=== PATIENT | male | born 1930 | race Caucasian/White ===

== ENCOUNTER → 2017-04-18 | Day surgery (SDC) | payer BC ==
[2017-03-30 14:39] VITALS: Ht 180.3 cm; Wt 79.5 kg
[~2017-04-18] VITALS: Ht 180.3 cm; Wt 79.5 kg
[~2017-04-18] MED LIST: ATOR-22 PO; BRIMONIDINE TART 0.2% OP SOLN PER DROP CHARGE OPR ONE; BRIMONIDINE TART 0.2% OP SOLN PER DROP CHARGE OPR SCH; BRIMONIDINE TARTRATE 0.2% 5ML OP SCH; PILOCARPINE HCL 2% OP SOLN PER DROP CHARGE OPR SCH; PROPARACAINE 0.5% OP SOLN PER DROP CHARGE OPR SCH; PROPARACAINE HCL 0.5% OP SOLN 15 ML BTL OPR ONE; PrednisoLONE ACET 1% OP SUSP 5 ML BTL OP SCH; PrednisoLONE ACET 1% OP SUSP 5 ML BTL OPR ONE
[2017-04-18 12:30] VITALS: BP 154/76; PULSE 60; O2SAT 98
--- NOTE | 2017-04-18 12:32 | Discharge Instructions-[facility]urgCtr ---
Discharge Instructions Date of Service Apr 18, 2017. Visit Reason for Visit: Glaucoma Right Eye Discharge Discharge Diagnosis / Problem: glaucoma Discharge Goals Goal(s): Improve disease control Activity Recommendations Activity Limitations: per Instructions/Follow-up section Anesthesia . Post Anesthesia Instructions: If you have had General Anesthesia or IV Sedation: * Do not drive today. * Resume driving when surgeon permits. * Do not make important decisions or sign legal documents today. * Call surgeon for: 1. Temperature elevations greater than 101 degrees F. 2. Uncontrollable pain. 3. Excessive bleeding. 4. Persistent nausea and vomiting. 5. Medication intolerance (nausea, vomiting or rash). * For nausea and vomiting use only clear liquids such as: tea, soda, bouillon until nausea subsides, then gradually increase diet as tolerated. * If you have any concerns or questions, call your surgeon's office. If physician is unavailable and it is an emergency, call 911 or go to the nearest emergency room. . Instructions / Follow-Up Instructions / Follow-Up ACTIVITY RECOMMENDATIONS: * No limitations RETURN TO SCHOOL/WORK: * No limitations DIET: * No limitations MEDICATIONS: Resume previous medications unless instructed otherwise by your surgeon. * Please use Prednisolone acetate drops prescription given to you at your office appointment as follows: 1 drop in effected eye 4 times a day for 5 days. * Continue all glaucoma drops as usual with no interruption to either eye. SPECIAL CARE INSTRUCTIONS: Call your doctor at with any concerns or problems. FOLLOW UP VISIT: Follow-up with Dr Menendez in 1 hour. Diet Recommendations Home Diet: resume previous diet Pending Studies Studies pending at discharge: no Medical Emergencies . Who to Call and When: Medical Emergencies: If at any time you feel your situation is an emergency, please call 911 immediately. . Non-Emergent Contact Non-Emergency issues call your: [employer] . . "Provider Documentation" section prepared by Payam Menendez. .
--- NOTE | 2017-04-18 12:33 | [facility] Operative Report ---
Operative Report Date of Service Apr 18, 2017. Operative Report Diagnosis: Glaucoma right eye Procedure: SLT superior 180 degrees, 52 spots, 1.4-1.6 mJ Complication: none I attest to the content of the Intraoperative Record and any orders documented therein. Any exceptions are noted below.
== END | disposition home or self-care (01) ==
LOC: X.SURG 11:05
PROVIDERS: ATTEND Ophthalmology
DX: H40.9 Unspecified glaucoma (principal); Z79.82 Long term (current) use of aspirin

== ENCOUNTER 2019-05-28 07:53 | Inpatient (IN) ==
[2019-05-28] MEDS ORDERED: SODIUM CHLORIDE 0.9% 1000ML 1,000 ML IV SCH ×2 (08:45→19:15)
[2019-05-28 08:55] LABS: Basophils # (auto) 0.02 K/uL (0-0.2); Basophils % (auto) 0.2 %; Eosinophils # (auto) 0.13 K/uL (0-0.5); Eosinophils % (auto) 1.2 %; Hematocrit (blood only) 34.3 % (42-52); Hemoglobin 12.3 g/dL (14.0-18.0); Immature Granulocytes # (auto) 0.04 K/uL (0.00-0.02); Immature Granulocytes % (auto) 0.4 %; Lymphocytes # (auto) 2.64 K/uL (1.2-3.4); Lymphocytes % (auto) 24.9 %; Mean Corpuscular Hemoglobin 32.5 pg (25-34); Mean Corpuscular Hgb Conc 35.9 g/dL (32-36); Mean Corpuscular Volume 90.7 fL (80-100); Mean Platelet Volume 10.9 fL (7.4-10.4); Monocytes # (auto) 1.07 K/uL (0.11-0.59); Monocytes % (auto) 10.1 %; Neutrophils # (auto) 6.71 K/uL (1.4-6.5); Neutrophils % (auto) 63.2 %; Platelet Count 195 K/uL (130-400); RDW Coefficient of Variation 12.8 % (11.5-14.5); RDW Standard Deviation 42.7 fL (36.4-46.3); Red Blood Count 3.78 M/uL (4.7-6.1); White Blood Count 10.61 K/uL (4.8-10.8)
--- NOTE | 2019-05-28 09:01 | XRay Report ---
XR chest 1V portable CLINICAL HISTORY: weakness dyspnea COMPARISON STUDY: 05/17/2019 FINDINGS: The bones soft tissues and hemidiaphragms are normal. The cardiomediastinal silhouette is n ormal. The lungs are clear. The pulmonary vasculature is normal. Superior mediastinal increase in den sity about the positional/artifactual. IMPRESSION: Negative chest. The above report was generated using voice recognition software. It may contain grammatical, syntax or spelling errors. Electronically signed by: Yan Radford M.D. 05/28/2019 9:00 AM
[2019-05-28 09:04] LABS: INR 1.2 (0.9-1.1); Prothrombin Time 11.7 Seconds (9.0-12.0)
[2019-05-28 09:11] LABS: Albumin Level 2.8 gm/dl (3.4-5.0); BUN Creatinine Ratio 30.2 (10-20); Blood Urea Nitrogen 29 mg/dl (7-18); Calcium 8.8 mg/dl (8.5-10.1); Carbon Dioxide 26 mmol/L (21-32); Chloride 94 mmol/L (98-107); Creatinine Clr Calc Pharmacy 50.5 ml/min; Est GFR (African American) 82.5; Est GFR (Non-African American) 71.2; Glucose 93 mg/dl (70-99); Potassium 4.4 mmol/L (3.5-5.1); Sodium 125 mmol/L (136-145)
[2019-05-28 09:22] LABS: Alanine Aminotransferase 53 U/L (12-78); Albumin Globulin Ratio 0.7 (0.9-2); Alkaline Phosphatase 130 U/L (45-117); Aspartate Aminotransferase 39 U/L (15-37); Bilirubin,Total 0.8 mg/dl (0.2-1); Total Protein 6.8 gm/dl (6.4-8.2); Troponin I < 0.015 ng/ml (0-0.045)
--- NOTE | 2019-05-28 09:40 | CT Scan Report ---
CT head/brain wo con CLINICAL HISTORY: Confusion COMPARISON STUDY: 05/02/2019 TECHNIQUE: Axial CT of the brain is performed from the vertex to the skull base. IV contrast was not administered for this examination. A dose lowering technique was utilized adhering to the principles of ALARA. CT DOSE: 614.27 mGy.cm FINDINGS: No intra or extra-axial mass lesions are visualized. There is no CT evidence of acute cortical infarc tion. There is no evidence of midline shift. There is no acute hemorrhage. No calvarial fractures ar e visualized. There are patchy white matter hypodensities likely on a small vessel basis. There is no evidence of pathologic ventricular dilatation. There is no evidence of acute sinusitis There are carotid and vertebral artery calcifications IMPRESSION: No acute intracranial findings Electronically signed by: Audie Brock M.D. 05/28/2019 9:38 AM
[2019-05-28 09:58] LABS: Appearance Urine Cloudy (Clear); Bacteria Urine Automated Negative (Negative); Bilirubin Urine Negative (Negative); Blood Urine 1+ (Negative); Cast Urine Automated 0 /lpf (0-5); Color Urine Yellow; Glucose Urine UA Negative (Negative); Ketones Urine Negative (Negative); Leukocyte Esterase Urine Negative (Negative); Nitrite Urine Negative (Negative); Protein Urine Negative (Negative); Specific Gravity Urine 1.019 (1.000-1.030); Urobilinogen Urine Negative (Negative); WBC Urine Automated 0 /hpf (0-5)
--- NOTE | 2019-05-28 11:57 | History & Physical Report ---
Date of Service May 28, 2019 Assessment & Plan (1) Hyponatremia: Patient presented with sodium level of 125, his previous levels were 135 earlier this month, and 138 in April (last month) Etiology is unclear, possibly secondary to very poor oral intake, SIADH, or side effect of SSRI, or combination of these factors Patient was started on Zoloft about 2 weeks ago, will hold for now Received half liter of normal saline in the ED, sodium level on recheck several hours later was 127 Serum osmolality, urine osmolality and urine sodium were ordered Serum osm 271, consistent with hypotonicity, urine osm 620 consistent with impaired water excretion TSH was ordered as part of the work-up in the ED, and was normal Volume status difficult to assess on phys. exam, as patient has no edema, dry mucous membranes/dry lips, however hemodynamically stable and hypertensive on initial evaluation Urine sodium 64, consistent with SIADH or renal salt wasting We will continue to monitor sodium every 4 hours, will make sure not to correct sodium too fast Will encourage oral intake We will consider to obtain FEurea, cortisol level (to rule out adrenal insufficiency), nephrology consult, if sodium does not improve (2) Confusion: Resolved, patient is alert and oriented and able to answer questions without any difficulty Etiology of confusion, likely secondary to hyponatremia Work-up in the ED included head CT which was negative, chest x-ray which was also negative, EKG showed bradycardia and first-degree AV block We will continue to closely monitor (3) Weight loss: Most likely secondary to poor oral intake BMI 21, which is normal Albumin 2.8 Per patient's son, patient lost about 40 pounds in the past 5 months Patient endorses poor appetite, etiology unclear, possibly secondary to depres sugey Denies having any difficulty with eating/drinking, such as dysphasia or abdominal discomfort Will encourage oral intake, discussed with nursing staff Will order boost 4 times daily We will consult dietitian (4) Depression: Patient had a several recent stressors, such as move to [facility], and leaving of his longtime girlfriend to [place] He denies any SI/HI, does not have any thoughts of hurting himself He does have a very poor appetite, which can be secondary to above History of mirtazapine use, which was discontinued and switched to Zoloft about 2 weeks ago Given his hyponatremia, and possibility of SSRI being the culprit, we will discontinue Zoloft during this admission We will continue to monitor closely (5) Dyslipidemia: No current issues Continue home statin (6) Hypertension: Currently patient's blood pressure is well controlled Patient does not take any home medications for BP We will continue to monitor (7) Hip pain, right: Secondary to chronic right hip arthritis Takes home NSAIDs, will continue during his hospitalization Pain well controlled at this time, will add Tylenol as needed Already scheduled for an outpatient ortho evaluation (8) DVT prophylaxis: Lovenox subq Encourage ambulation (9) Discharge planning issues: Currently resides at [facility], will consult PT to see if he has other needs for discharge. Current PCP, Dr. Gonzaelz. After discharge patient may follow-up with his PCP or physician at [facility]. History of Present Illness Chief Complaint: confusion Primary Care Provider: Dominguez Gonzalez MD 88-year-old male with history of hypertension, bilateral sensorineural hearing loss, right hip arthritis who presents from [facility], with confusion, most likely secondary to hyponatremia. In the ED patient was found to have sodium level of 125, head CT was negative for any acute changes, EKG showed bradycardia in 50s, and first-degree AV block. Patient presents with his son Donta who also provides history. They both state that patient has not been eating or drinking for some time and has been losing weight. Pt denies having any confusion like this in the past, he also has not been admitted to hospital before. He says that he woke up in the morning and he was unsure what he was doing, however denied any dizziness, chest pain,headache,nausea, abdominal pain, weakness, numbness, tingling. The staff at [facility] became aware and decided to bring patient to the hospital for further evaluation and treatment. Per son Donta, patient has been feeling more sad/depressed lately, as he moved to the [facility] 2 weeks ago (on May 17). He misses living in his home and in addition his girlfriend also moved to [place]. The patient and his girlfriend were together for about past 10 years and patient's son and the girlfriend do not get along which worries the patient. Per Donta, patient became more worried and anxious about "all the things that need to be taken care of" while he is at [facility]. He saw his primary care physician, Dr. Gonzalez on May 10, and at that time Zoloft was prescribed. Donta also mentions that patient has been taking mirtazapine for a long time in the past and mirtazapine was stopped. Donta's other concern is the patient's right hip pain due to arthritis, weight loss which he states is about 40 to 50 pounds in the past 5 months, and very poor appetite. Patient denies having any difficulty with eating or drinking, denies any pain with swallowing or abdominal discomfort. He states that he "just does not have any appetite". He also says that he has been having troubles with constipation and has been using stool softeners in the past couple of months. Internal medicine hospitalist team was called for admission for hyponatremia evaluation and treatment. Patient received half a liter of normal saline in the ED. On admission, patient's mental status back at baseline, he is alert and oriented and able to answer all questions without difficulty. Allergies Allergy/AdvReac Type Severity Reaction Status Date / Time No Known Allergies Allergy Unverified 05/28/19 08:21 Home Medications Home Medications Medication Instructions Recorded Confirmed Type aspirin 81 mg PO QAM 05/02/19 05/28/19 History atorvastatin 20 mg PO HS 05/02/19 05/28/19 History calcium carbonate-vitamin D3 1 cap PO QAM 05/02/19 05/28/19 History [Calcium 600 + D(3)] celecoxib 200 mg PO DAILY 05/02/19 05/28/19 History diclofenac sodium 2 g TOPICAL DIRECTED 05/02/19 05/28/19 History glucos sul [id number] 1 cap PO QAM 05/02/19 05/28/19 History [Glucosamine Chondroitin] multivitamin 1 tab PO QAM 05/02/19 05/28/19 History sertraline 50 mg PO DAILY 05/17/19 05/28/19 History Past Med/Surg History Medical History Sensorineural hearing loss (SNHL) of both ears (Chronic) Hypertension (Chronic) Mild scoliosis (Chronic) Dyslipidemia (Chronic) Depression (Chronic) Arthritis of right hip (Chronic) Surgical History Status post left cataract extraction (Chronic) Family History Mother Cancer Liver (unknown primary) Father Cancer Spine (unknown primary) Heart disease Brother Cancer intestinal Brother Heart disease Brother Heart disease Other Family history non-contributory Social History Preferred Language: Slovak Communication Ability: Effective Bet Taker Required: No Beliefs That Will Affect Care: None marital status details: but lived w/ GF for past 10 yrs who recently moved to [place] Current Living Situation: Personal Care Facility Current Living Situation Comment: [facility] Other Information That Helps Us Care for You: No Feels Safe at Home: Yes Safety Concerns: Feels Safe At This Time Smoking Status: Former smoker Hx Alcohol Use: No Hx Substance Use: No Review of Systems Constitutional: + weakness, + anorexia and + weight loss (40 lbs); no fever Eyes: no eye pain and no photophobia Ear, Nose, Mouth, Throat: + hearing loss; no pain with swallowing and no neck lump Patient uses hearing aids Respiratory: no cough, no chest congestion, no dyspnea and no wheezing Cardiovascular: no chest pain, no chest pain at rest, no palpitations and no lightheadedness Gastrointestinal: + constipation; no abdominal pain, no nausea, no hematemesis, no pain with swallowing, no dysphagia and no fecal incontinence Genitourinary: + urinary hesitancy Musculoskeletal: + joint pain (R hip) and + limited range of motion (of R hip d/t pain); no deformity and no swelling Integumentary: + dry skin; no erythema, no pruritus and no yellowing of the skin Neurologic: + unsteadiness, + falls (hx of fall ) and + confusion (now resolved); no tingling, no numbness, no dizziness, no syncope and no abnormal speech Psychiatric: + anhedonia; no suicidal ideation, no hallucinations and no visual hallucinations Endocrine: no polydipsia, no polyuria and no cold intolerance Hematologic / Lymphatic: no easy bleeding, no lymphadenopathy and no night sweats + weight loss (in the setting of poor oral intake) Allergy / Immunological: no throat swelling, no urticaria, no wheezing, no dyspnea and no rash Physical Exam Constitutional: + thin; no acute distress elderly male, appears the stated age, in no acute distress Eyes: PERRL, conjunctivae normal, anicteric sclerae + anicteric sclerae and EOM intact bilaterally ENMT: external ear and nose normal, oropharynx normal Ears: + hearing impairment (uses hearing aids) Mouth: + lip abnormality (dry), + oral mucosal abnormality (dry) and + dentition abnormality (poor dentition) Neck: supple, no cervical lymphadenopathy Respiratory: normal respiratory effort, lungs clear to auscultation does not use accessory muscles and no cough Auscultation: no crackles, no rhonchi and no wheezes Cardiovascular: RRR, no murmur, no edema Heart Sounds: normal S1 and normal S2; no click and no gallop Palpation: no thrill Vessels: no JVD Extremities: no edema Chest (Breasts): Chest: normal inspection of chest Gastrointestinal (Abdomen): Inspection/Auscultation: abdomen normal to inspection and normal bowel sounds; abdomen not distended Percussion/Palpation: abdomen soft; abdomen nontender, no guarding and abdomen not rigid Musculoskeletal: Head/Neck/Chest: normocephalic, head atraumatic and neck supple Extremities: extremities normal to inspection and + limited ROM of extremities (R hip ROM limited); no cyanosis and no petechiae Skin: no rashes, warm and dry no rashes and no jaundice Neurologic: PERRL, EOMI, accommodation nl, no face palsy, no dysarthria moves all extremities Speech / Cognition: normal speech Motor/Sensory: no tremor no sensory loss noted Psychiatric: Orientation: alert and oriented x 3 Speech: normal rate/rhythm/volume of speech Affect: + depressed affect Lymphatic: no lymphedema, no cervical lymphadenopathy and no subclavicular lymphadenopathy Results & Data Vital Signs (Past 12 Hours) Vital Signs Temp Pulse Pulse Resp BP BP Pulse Ox 05/28/19 11:30 59 L 20 123/71 96 05/28/19 10:30 61 15 132/68 97 05/28/19 10:00 64 21 149/74 H 98 05/28/19 09:52 62 18 142/71 H 96 05/28/19 09:00 54 L 15 118/58 L 97 05/28/19 08:43 57 L 15 136/68 98 05/28/19 08:11 95 05/28/19 07:58 36.6 C 59 L 18 144/59 H 97 Laboratory Results 05/28/19 05/28/19 05/28/19 Range/Units 14:59 14:56 09:59 WBC (4.8-10.8) K/uL RBC (4.7-6.1) M/uL Hgb (14.0-18.0) g/dL Hct (42-52) % MCV (80-100) fL MCH (25-34) pg MCHC (32-36) g/dL RDW Std Deviation (36.4-46.3) fL RDW Coeff of Victor Hugo (11.5-14.5) % Plt Count (130-400) K/uL MPV (7.4-10.4) fL Immature Gran % (Auto) % Neut % (Auto) % Lymph % (Auto) % Ponce % (Auto) % Eos % (Auto) % Baso % (Auto) % Immature Gran # (Auto) (0.00-0.02) K/uL Neut # (Auto) (1.4-6.5) K/uL Lymph # (Auto) (1.2-3.4) K/uL Ponce # (Auto) (0.11-0.59) K/uL Eos # (Auto) (0-0.5) K/uL Baso # (Auto) (0-0.2) K/uL PT (9.0-12.0) Seconds INR (0.9-1.1) APTT Pending PTT Ratio Pending Sodium Pending (136-145) mmol/L Potassium (3.5-5.1) mmol/L Chloride (98-107) mmol/L Carbon Dioxide (21-32) mmol/L Anion Gap (3-11) BUN (7-18) mg/dl Creatinine (0.6-1.4) mg/dl Est Cr Clr Drug Dosing ml/min Est GFR ( Amer) Est GFR (Non-Af Amer) BUN/Creatinine Ratio (10-20) Glucose (70-99) mg/dl Osmolality 271 L (280-300) mOsm/kg Calcium (8.5-10.1) mg/dl Total Bilirubin (0.2-1) mg/dl AST (15-37) U/L ALT (12-78) U/L Alkaline Phosphatase (45-117) U/L Troponin I (0-0.045) ng/ml Total Protein (6.4-8.2) gm/dl Albumin (3.4-5.0) gm/dl Globulin (2.5-4.0) gm/dl Albumin/Globulin Ratio (0.9-2) TSH (0.300-4.500) uIu/ml Urine Color Urine Appearance (Clear) Urine pH (4.5-7.5) Ur Specific Fountain (1.000-1.030) Urine Protein (Negative) Urine Glucose (UA) (Negative) Urine Ketones (Negative) Urine Blood (Negative) Urine Nitrite (Negative) Urine Bilirubin (Negative) Urine Urobilinogen (Negative) Ur Leukocyte Esterase (Negative) Urine WBC (Auto) (0-5) /hpf Urine RBC (Auto) (0-4) /hpf U Hyaline Cast (Auto) (0-5) /lpf U Epithel Cells (Auto) (0-5) /lpf Urine Bacteria (Auto) (Negative) Urine Osmolality (500-800) mOsm/kg Ur Random Sodium mmol/L 05/28/19 05/28/19 05/28/19 Range/Units 09:45 09:45 09:45 WBC (4.8-10.8) K/uL RBC (4.7-6.1) M/uL Hgb (14.0-18.0) g/dL Hct (42-52) % MCV (80-100) fL MCH (25-34) pg MCHC (32-36) g/dL RDW Std Deviation (36.4-46.3) fL RDW Coeff of Victor Hugo (11.5-14.5) % Plt Count (130-400) K/uL MPV (7.4-10.4) fL Immature Gran % (Auto) % Neut % (Auto) % Lymph % (Auto) % Ponce % (Auto) % Eos % (Auto) % Baso % (Auto) % Immature Gran # (Auto) (0.00-0.02) K/uL Neut # (Auto) (1.4-6.5) K/uL Lymph # (Auto) (1.2-3.4) K/uL Ponce # (Auto) (0.11-0.59) K/uL Eos # (Auto) (0-0.5) K/uL Baso # (Auto) (0-0.2) K/uL PT (9.0-12.0) Seconds INR (0.9-1.1) APTT PTT Ratio Sodium (136-145) mmol/L Potassium (3.5-5.1) mmol/L Chloride (98-107) mmol/L Carbon Dioxide (21-32) mmol/L Anion Gap (3-11) BUN (7-18) mg/dl Creatinine (0.6-1.4) mg/dl Est Cr Clr Drug Dosing ml/min Est GFR ( Amer) Est GFR (Non-Af Amer) BUN/Creatinine Ratio (10-20) Glucose (70-99) mg/dl Osmolality (280-300) mOsm/kg Calcium (8.5-10.1) mg/dl Total Bilirubin (0.2-1) mg/dl AST (15-37) U/L ALT (12-78) U/L Alkaline Phosphatase (45-117) U/L Troponin I (0-0.045) ng/ml Total Protein (6.4-8.2) gm/dl Albumin (3.4-5.0) gm/dl Globulin (2.5-4.0) gm/dl Albumin/Globulin Ratio (0.9-2) TSH (0.300-4.500) uIu/ml Urine Color Yellow Urine Appearance Cloudy A (Clear) Urine pH 7.0 (4.5-7.5) Ur Specific Fountain 1.019 (1.000-1.030) Urine Protein Negative (Negative) Urine Glucose (UA) Negative (Negative) Urine Ketones Negative (Negative) Urine Blood 1+ H (Negative) Urine Nitrite Negative (Negative) Urine Bilirubin Negative (Negative) Urine Urobilinogen Negative (Negative) Ur Leukocyte Esterase Negative (Negative) Urine WBC (Auto) 0 (0-5) /hpf Urine RBC (Auto) 10-30 H (0-4) /hpf U Hyaline Cast (Auto) 0 (0-5) /lpf U Epithel Cells (Auto) 5-10 H (0-5) /lpf Urine Bacteria (Auto) Negative (Negative) Urine Osmolality 620 (500-800) mOsm/kg Ur Random Sodium 64 mmol/L 05/28/19 05/28/19 05/28/19 Range/Units 08:45 08:45 08:45 WBC 10.61 (4.8-10.8) K/uL RBC 3.78 L (4.7-6.1) M/uL Hgb 12.3 L (14.0-18.0) g/dL Hct 34.3 L (42-52) % MCV 90.7 (80-100) fL MCH 32.5 (25-34) pg MCHC 35.9 (32-36) g/dL RDW Std Deviation 42.7 (36.4-46.3) fL RDW Coeff of Victor Hugo 12.8 (11.5-14.5) % Plt Count 195 (130-400) K/uL MPV 10.9 H (7.4-10.4) fL Immature Gran % (Auto) 0.4 % Neut % (Auto) 63.2 % Lymph % (Auto) 24.9 % Ponce % (Auto) 10.1 % Eos % (Auto) 1.2 % Baso % (Auto) 0.2 % Immature Gran # (Auto) 0.04 H (0.00-0.02) K/uL Neut # (Auto) 6.71 H (1.4-6.5) K/uL Lymph # (Auto) 2.64 (1.2-3.4) K/uL Ponce # (Auto) 1.07 H (0.11-0.59) K/uL Eos # (Auto) 0.13 (0-0.5) K/uL Baso # (Auto) 0.02 (0-0.2) K/uL PT 11.7 (9.0-12.0) Seconds INR 1.2 H (0.9-1.1) APTT PTT Ratio Sodium 125 L (136-145) mmol/L Potassium 4.4 (3.5-5.1) mmol/L Chloride 94 L (98-107) mmol/L Carbon Dioxide 26 (21-32) mmol/L Anion Gap 6.0 (3-11) BUN 29 H (7-18) mg/dl Creatinine 0.95 (0.6-1.4) mg/dl Est Cr Clr Drug Dosing 50.5 ml/min Est GFR ( Amer) 82.5 Est GFR (Non-Af Amer) 71.2 BUN/Creatinine Ratio 30.2 H (10-20) Glucose 93 (70-99) mg/dl Osmolality (280-300) mOsm/kg Calcium 8.8 (8.5-10.1) mg/dl Total Bilirubin 0.8 (0.2-1) mg/dl AST 39 H (15-37) U/L ALT 53 (12-78) U/L Alkaline Phosphatase 130 H (45-117) U/L Troponin I < 0.015 (0-0.045) ng/ml Total Protein 6.8 (6.4-8.2) gm/dl Albumin 2.8 L (3.4-5.0) gm/dl Globulin 4.0 (2.5-4.0) gm/dl Albumin/Globulin Ratio 0.7 L (0.9-2) TSH 2.520 (0.300-4.500) uIu/ml Urine Color Urine Appearance (Clear) Urine pH (4.5-7.5) Ur Specific Fountain (1.000-1.030) Urine Protein (Negative) Urine Glucose (UA) (Negative) Urine Ketones (Negative) Urine Blood (Negative) Urine Nitrite (Negative) Urine Bilirubin (Negative) Urine Urobilinogen (Negative) Ur Leukocyte Esterase (Negative) Urine WBC (Auto) (0-5) /hpf Urine RBC (Auto) (0-4) /hpf U Hyaline Cast (Auto) (0-5) /lpf U Epithel Cells (Auto) (0-5) /lpf Urine Bacteria (Auto) (Negative) Urine Osmolality (500-800) mOsm/kg Ur Random Sodium mmol/L Diagnostic Findings HEAD CT IMPRESSION: No acute intracranial findings. Electronically signed by: Audie Brock M.D. 05/28/2019 9:38 AM CXR FINDINGS: The bones soft tissues and hemidiaphragms are normal. The cardiomediastinal silhouette is normal. The lungs are clear. The pulmonary vasculature is normal. Superior mediastinal increase in density about the positional/artifactual. IMPRESSION: Negative chest. Electronically signed by: Yan Radford M.D. 05/28/2019 9:00 AM ECG Indication: altered mental status and bradycardia Findings: + 1st degree AV block Code Status & VTE Plan Code Status DNR/DNI - code status discussed with the patient and his son Donta Pt filled out POLST earlier this month where it states CPR if no pulse and no breathing, Comfort only if pulse and/or breathing - clarified this with the pt and his son, Patient does NOT wish resuscitation Donta's (son) phone number, [phone], please contact w/ any significant updates. VTE Prophylaxis Plan VTE Prophylaxis will be ordered: Yes (1) Depression Depression Type: unspecified Qualified Code(s): F32.9 - Major depressive disorder, single episode, unspecified (2) Hypertension Hypertension type: unspecified Qualified Code(s): I10 - Essential (primary) hypertension
--- NOTE | 2019-05-28 13:52 | Emergency Department Note ---
Entered by Guillaume Gaona acting as a scribe for Esdras De Los Santos M.D. History of Present Illness General Chief complaint: Illness Time Seen by Provider: 05/28/19 08:21 Source: patient History of Present Illness Provider complaint: Altered mental status Onset (ago): hour(s) 2 Location: head Pain Consistency: + now resolved Maximum Pain Intensity: 4 Current Pain Intensity: 4 Relieved By: + none Exacerbated By: + none Associated symptoms: + other (Right hip pain) The patient is an 88 year old male who presents to the Emergency Room via EMS from [facility] with a chief complaint of constant altered mental status that started this morning about 2 hours ago. The patient states he woke up to urinate and found himself confused in regards to what to do next and where to go. The patient then called for nursing and they did not notice any weakness or focal deficits but he was still confused. The patient reports that en route with EMS his confusion greatly improved, but he is still slightly confused. The patient also mentioned that he has some right hip pain that he rates a 4/10. The patient adds that he has a follow up appointment with ortho soon for this pain. Home Medications Home Medications Medication Instructions Recorded Confirmed Type aspirin 81 mg PO QAM 05/02/19 05/28/19 History atorvastatin 20 mg PO HS 05/02/19 05/28/19 History calcium carbonate-vitamin D3 1 cap PO QAM 05/02/19 05/28/19 History [Calcium 600 + D(3)] celecoxib 200 mg PO DAILY 05/02/19 05/28/19 History diclofenac sodium 2 g TOPICAL DIRECTED 05/02/19 05/28/19 History glucos sul [id number] 1 cap PO QAM 05/02/19 05/28/19 History [Glucosamine Chondroitin] multivitamin 1 tab PO QAM 05/02/19 05/28/19 History sertraline 50 mg PO DAILY 05/17/19 05/28/19 History Allergies Allergy/AdvReac Type Severity Reaction Status Date / Time No Known Allergies Allergy Unverified 05/28/19 08:21 Past Med/Surg History Medical History Hypertension (Chronic) Mild scoliosis (Chronic) Dyslipidemia (Chronic) Depression (Chronic) Arthritis of right hip (Chronic) Family History Other Family history non-contributory Social History Preferred Language: Cameroonian Communication Ability: Effective Ship Unloader Required: No Beliefs That Will Affect Care: None Current Living Situation: Personal Care Facility Current Living Situation Comment: [facility] Other Information That Helps Us Care for You: No Feels Safe at Home: Yes Safety Concerns: Feels Safe At This Time Smoking Status: Former smoker Hx Alcohol Use: No Hx Substance Use: No Review of Systems See HPI for pertinent positives & negatives. and A total of 10 systems reviewed and were otherwise negative Physical Exam Vital Signs Vital Signs - 24 hr 05/28/19 07:58 05/28/19 08:11 05/28/19 08:43 Temperature 36.6 C Temperature Source Oral Sepsis Recent Fever Within 48 Hours No Sepsis New/Unexplained Change in Mental Status No Sepsis Action Taken by Nursing No Action Required Pulse Rate 59 L 57 L Pulse Rate [Left] Pulse Rate from SpO2 Sensor 57 L Respiratory Rate 18 15 Respiratory Effort / Characteristics Non-Labored Spontaneous Respiratory Depth Normal Blood Pressure 144/59 H 136/68 Blood Pressure [Left Arm] Blood Pressure Mean 87 90 Blood Pressure Mean [Left Arm] Blood Pressure Position [Left Arm] Pulse Oximetry 97 95 98 Oxygen Delivery Method Room Air Room Air Room Air 05/28/19 09:00 05/28/19 09:52 05/28/19 10:00 Temperature Temperature Source Sepsis Recent Fever Within 48 Hours Sepsis New/Unexplained Change in Mental Status Sepsis Action Taken by Nursing Pulse Rate 54 L 62 64 Pulse Rate [Left] Pulse Rate from SpO2 Sensor 54 L 63 Respiratory Rate 15 18 21 Respiratory Effort / Characteristics Respiratory Depth Blood Pressure 118/58 L 142/71 H 149/74 H Blood Pressure [Left Arm] Blood Pressure Mean 78 94 99 Blood Pressure Mean [Left Arm] Blood Pressure Position [Left Arm] Pulse Oximetry 97 96 98 Oxygen Delivery Method Room Air Room Air Room Air 05/28/19 10:30 05/28/19 11:30 05/28/19 13:00 Temperature Temperature Source Sepsis Recent Fever Within 48 Hours Sepsis New/Unexplained Change in Mental Status Sepsis Action Taken by Nursing Pulse Rate 61 Pulse Rate [Left] 59 L 53 L Pulse Rate from SpO2 Sensor 61 Respiratory Rate 15 20 18 Respiratory Effort / Characteristics Non-Labored Spontaneous Respiratory Depth Normal Blood Pressure 132/68 Blood Pressure [Left Arm] 123/71 107/56 L Blood Pressure Mean 89 Blood Pressure Mean [Left Arm] 88 73 Blood Pressure Position [Left Arm] Lying Lying Pulse Oximetry 97 96 96 Oxygen Delivery Method Room Air Room Air Room Air 05/28/19 13:36 Temperature Temperature Source Sepsis Recent Fever Within 48 Hours Sepsis New/Unexplained Change in Mental Status Sepsis Action Taken by Nursing Pulse Rate 53 L Pulse Rate [Left] Pulse Rate from SpO2 Sensor Respiratory Rate 16 Respiratory Effort / Characteristics Respiratory Depth Blood Pressure 112/53 L Blood Pressure [Left Arm] Blood Pressure Mean Blood Pressure Mean [Left Arm] Blood Pressure Position [Left Arm] Pulse Oximetry 98 Oxygen Delivery Method Room Air GENERAL: Awake, alert, frail-appearing, in no distress HENT: Normocephalic, atraumatic. EYES: Normal conjunctiva. Sclera non-icteric. PERRL. NECK: Supple. No nuchal rigidity. RESPIRATORY: Clear to auscultation. No wheezes. Normal respiratory effort. CARDIAC: Normal rate. Normal rhythm. Extremities warm and well perfused. GI: Soft, non-distended. No tenderness to palpation. RECTAL: Deferred. MUSCULOSKELETAL: Atraumatic. Chest examination reveals no tenderness. LOWER EXTREMITIES: Calves are equal size bilaterally and non-tender. No edema NEURO: Occasionally slow to answer. No sensory or motor deficits noted. No facial droop. No slurred speech. SKIN: Warm and dry. No rash or jaundice noted. Course 0805: Past medical records reviewed. The patient was evaluated in room B02 by the resident Dr. Gleason, and a complete history and physical examination were performed. 0949: I spoke to Dr. Margarito Lao about the patient's case. She is going to accept the patient for further evaluation. 0957: I reevaluated the patient and he is resting in bed. I updated him on the treatment plan and he agreed. Consultations Consultation #1: I spoke to Dr. Margarito Lao about the patient's case. She is going to accept the patient for further evaluation. Time: 09:49 Administered Medications Discontinued Medications Sodium Chloride (Nss 1000ml) 1,000 mls @ 999 mls/hr IV .Q1H1M EMILY Stop: 05/28/19 09:45 Last Infusion: 05/28/19 09:18 Dose: 0 mls/hr Documented by: [id number] Admin: 05/28/19 08:44 Dose: 999 mls/hr Documented by: [id number] Medical Decision Making Differential Diagnosis Differential diagnoses includes but is not limited to toxic, metabolic, infectious, traumatic, cardiac, neurologic, hematologic, psychiatric and inflammatory etiologies. Medical Records Attestation: I reviewed the patient's medical records. Home Medications Current Medication List: was personally reviewed by me Laboratory Data Attestation: I reviewed the patient's lab results. Result diagrams: 05/28/19 08:45 05/28/19 08:45 Lab Results 05/28/19 05/28/19 05/28/19 Range/Units 08:45 08:45 08:45 WBC 10.61 (4.8-10.8) K/uL RBC 3.78 L (4.7-6.1) M/uL Hgb 12.3 L (14.0-18.0) g/dL Hct 34.3 L (42-52) % MCV 90.7 (80-100) fL MCH 32.5 (25-34) pg MCHC 35.9 (32-36) g/dL RDW Std Deviation 42.7 (36.4-46.3) fL RDW Coeff of Victor Hugo 12.8 (11.5-14.5) % Plt Count 195 (130-400) K/uL MPV 10.9 H (7.4-10.4) fL Immature Gran % (Auto) 0.4 % Neut % (Auto) 63.2 % Lymph % (Auto) 24.9 % [place] % (Auto) 10.1 % Eos % (Auto) 1.2 % Baso % (Auto) 0.2 % Immature Gran # (Auto) 0.04 H (0.00-0.02) K/uL Neut # (Auto) 6.71 H (1.4-6.5) K/uL Lymph # (Auto) 2.64 (1.2-3.4) K/uL [place] # (Auto) 1.07 H (0.11-0.59) K/uL Eos # (Auto) 0.13 (0-0.5) K/uL Baso # (Auto) 0.02 (0-0.2) K/uL PT 11.7 (9.0-12.0) Seconds INR 1.2 H (0.9-1.1) Sodium 125 L (136-145) mmol/L Potassium 4.4 (3.5-5.1) mmol/L Chloride 94 L (98-107) mmol/L Carbon Dioxide 26 (21-32) mmol/L Anion Gap 6.0 (3-11) BUN 29 H (7-18) mg/dl Creatinine 0.95 (0.6-1.4) mg/dl Est Cr Clr Drug Dosing 50.5 ml/min Est GFR ( Amer) 82.5 Est GFR (Non-Af Amer) 71.2 BUN/Creatinine Ratio 30.2 H (10-20) Glucose 93 (70-99) mg/dl Osmolality (280-300) mOsm/kg Calcium 8.8 (8.5-10.1) mg/dl Total Bilirubin 0.8 (0.2-1) mg/dl AST 39 H (15-37) U/L ALT 53 (12-78) U/L Alkaline Phosphatase 130 H (45-117) U/L Troponin I < 0.015 (0-0.045) ng/ml Total Protein 6.8 (6.4-8.2) gm/dl Albumin 2.8 L (3.4-5.0) gm/dl Globulin 4.0 (2.5-4.0) gm/dl Albumin/Globulin Ratio 0.7 L (0.9-2) TSH 2.520 (0.300-4.500) uIu/ml Urine Color Urine Appearance (Clear) Urine pH (4.5-7.5) Ur Specific [place] (1.000-1.030) Urine Protein (Negative) Urine Glucose (UA) (Negative) Urine Ketones (Negative) Urine Blood (Negative) Urine Nitrite (Negative) Urine Bilirubin (Negative) Urine Urobilinogen (Negative) Ur Leukocyte Esterase (Negative) Urine WBC (Auto) (0-5) /hpf Urine RBC (Auto) (0-4) /hpf U Hyaline Cast (Auto) (0-5) /lpf U Epithel Cells (Auto) (0-5) /lpf Urine Bacteria (Auto) (Negative) Urine Osmolality (500-800) mOsm/kg Ur Random Sodium mmol/L 05/28/19 05/28/19 05/28/19 Range/Units 09:45 09:45 09:45 WBC (4.8-10.8) K/uL RBC (4.7-6.1) M/uL Hgb (14.0-18.0) g/dL Hct (42-52) % MCV (80-100) fL MCH (25-34) pg MCHC (32-36) g/dL RDW Std Deviation (36.4-46.3) fL RDW Coeff of Victor Hugo (11.5-14.5) % Plt Count (130-400) K/uL MPV (7.4-10.4) fL Immature Gran % (Auto) % Neut % (Auto) % Lymph % (Auto) % [place] % (Auto) % Eos % (Auto) % Baso % (Auto) % Immature Gran # (Auto) (0.00-0.02) K/uL Neut # (Auto) (1.4-6.5) K/uL Lymph # (Auto) (1.2-3.4) K/uL [place] # (Auto) (0.11-0.59) K/uL Eos # (Auto) (0-0.5) K/uL Baso # (Auto) (0-0.2) K/uL PT (9.0-12.0) Seconds INR (0.9-1.1) Sodium (136-145) mmol/L Potassium (3.5-5.1) mmol/L Chloride (98-107) mmol/L Carbon Dioxide (21-32) mmol/L Anion Gap (3-11) BUN (7-18) mg/dl Creatinine (0.6-1.4) mg/dl Est Cr Clr Drug Dosing ml/min Est GFR ( Amer) Est GFR (Non-Af Amer) BUN/Creatinine Ratio (10-20) Glucose (70-99) mg/dl Osmolality (280-300) mOsm/kg Calcium (8.5-10.1) mg/dl Total Bilirubin (0.2-1) mg/dl AST (15-37) U/L ALT (12-78) U/L Alkaline Phosphatase (45-117) U/L Troponin I (0-0.045) ng/ml Total Protein (6.4-8.2) gm/dl Albumin (3.4-5.0) gm/dl Globulin (2.5-4.0) gm/dl Albumin/Globulin Ratio (0.9-2) TSH (0.300-4.500) uIu/ml Urine Color Yellow Urine Appearance Cloudy A (Clear) Urine pH 7.0 (4.5-7.5) Ur Specific [place] 1.019 (1.000-1.030) Urine Protein Negative (Negative) Urine Glucose (UA) Negative (Negative) Urine Ketones Negative (Negative) Urine Blood 1+ H (Negative) Urine Nitrite Negative (Negative) Urine Bilirubin Negative (Negative) Urine Urobilinogen Negative (Negative) Ur Leukocyte Esterase Negative (Negative) Urine WBC (Auto) 0 (0-5) /hpf Urine RBC (Auto) 10-30 H (0-4) /hpf U Hyaline Cast (Auto) 0 (0-5) /lpf U Epithel Cells (Auto) 5-10 H (0-5) /lpf Urine Bacteria (Auto) Negative (Negative) Urine Osmolality 620 (500-800) mOsm/kg Ur Random Sodium 64 mmol/L 05/28/19 Range/Units 09:59 WBC (4.8-10.8) K/uL RBC (4.7-6.1) M/uL Hgb (14.0-18.0) g/dL Hct (42-52) % MCV (80-100) fL MCH (25-34) pg MCHC (32-36) g/dL RDW Std Deviation (36.4-46.3) fL RDW Coeff of Victor Hugo (11.5-14.5) % Plt Count (130-400) K/uL MPV (7.4-10.4) fL Immature Gran % (Auto) % Neut % (Auto) % Lymph % (Auto) % [place] % (Auto) % Eos % (Auto) % Baso % (Auto) % Immature Gran # (Auto) (0.00-0.02) K/uL Neut # (Auto) (1.4-6.5) K/uL Lymph # (Auto) (1.2-3.4) K/uL [place] # (Auto) (0.11-0.59) K/uL Eos # (Auto) (0-0.5) K/uL Baso # (Auto) (0-0.2) K/uL PT (9.0-12.0) Seconds INR (0.9-1.1) Sodium (136-145) mmol/L Potassium (3.5-5.1) mmol/L Chloride (98-107) mmol/L Carbon Dioxide (21-32) mmol/L Anion Gap (3-11) BUN (7-18) mg/dl Creatinine (0.6-1.4) mg/dl Est Cr Clr Drug Dosing ml/min Est GFR ( Amer) Est GFR (Non-Af Amer) BUN/Creatinine Ratio (10-20) Glucose (70-99) mg/dl Osmolality 271 L (280-300) mOsm/kg Calcium (8.5-10.1) mg/dl Total Bilirubin (0.2-1) mg/dl AST (15-37) U/L ALT (12-78) U/L Alkaline Phosphatase (45-117) U/L Troponin I (0-0.045) ng/ml Total Protein (6.4-8.2) gm/dl Albumin (3.4-5.0) gm/dl Globulin (2.5-4.0) gm/dl Albumin/Globulin Ratio (0.9-2) TSH (0.300-4.500) uIu/ml Urine Color Urine Appearance (Clear) Urine pH (4.5-7.5) Ur Specific [place] (1.000-1.030) Urine Protein (Negative) Urine Glucose (UA) (Negative) Urine Ketones (Negative) Urine Blood (Negative) Urine Nitrite (Negative) Urine Bilirubin (Negative) Urine Urobilinogen (Negative) Ur Leukocyte Esterase (Negative) Urine WBC (Auto) (0-5) /hpf Urine RBC (Auto) (0-4) /hpf U Hyaline Cast (Auto) (0-5) /lpf U Epithel Cells (Auto) (0-5) /lpf Urine Bacteria (Auto) (Negative) Urine Osmolality (500-800) mOsm/kg Ur Random Sodium mmol/L Imaging Data Radiologist's Impression: Radiology results as stated below per my review and the radiologist's interpretation: XR chest 1V portable CLINICAL HISTORY: weakness dyspnea COMPARISON STUDY: 05/17/2019 FINDINGS: The bones soft tissues and hemidiaphragms are normal. The cardiomediastinal silhouette is normal. The lungs are clear. The pulmonary vasculature is normal. Superior mediastinal increase in density about the positional/artifactual. IMPRESSION: Negative chest. The above report was generated using voice recognition software. It may contain grammatical, syntax or spelling errors. Electronically signed by: Yan Radford M.D. 05/28/2019 9:[address] head/brain wo asael CLINICAL HISTORY: Confusion COMPARISON STUDY: 05/02/2019 TECHNIQUE: Axial CT of the brain is performed from the vertex to the skull base. IV contrast was not administered for this examination. A dose lowering technique was utilized adhering to the principles of ALARA. CT DOSE: 614.27 mGy.cm FINDINGS: No intra or extra-axial mass lesions are visualized. There is no CT evidence of acute cortical infarction. There is no evidence of midline shift. There is no acute hemorrhage. No calvarial fractures are visualized. There are patchy white matter hypodensities likely on a small vessel basis. There is no evidence of pathologic ventricular dilatation. There is no evidence of acute sinusitis There are carotid and vertebral artery calcifications IMPRESSION: No acute intracranial findings Electronically signed by: Audie Brock M.D. 05/28/2019 9:38 AM ECG Data Attestation: I personally reviewed and interpreted this ECG as follows: Indication: altered mental status Rate (beats per minute): 56 Rhythm: sinus bradycardia Findings: + 1st degree AV block and + left axis deviation; no PVC, no ST depress ion and no ST elevation Blood Pressure Blood Pressure Findings: Elevated blood pressure Blood Pressure Disposition: further management by hospitalist LINDSEY Rodriguez Patient is an 88-year-old gentleman with a past medical history of hypertension seen here beginning of the month with right hip pain presents via ambulance today as he felt somewhat confused this morning at his facility. Evaluation at that time with CT imaging did not identify fracture however there was severe degenerative change. Patient today with right hip pain some confusion and dehydration. Patient states he has no desire to eat or drink and his urine is concentrated. Seen in conjunction with the resident. Patient upon arrival here denies significant complaints with chronic right hip pain. Patient seems alert and oriented here without focal deficit here. Somewhat slow to answer. Chest x- rays unremarkable. EKG without significant new findings. Laboratory studies are significant for a new hyponatremia of 125. Wonder if this is the underlying reason for why he staying a little bit confused. This does appear acute compared to 2 weeks ago. Given 500 mL's of normal saline prior to obtaining this labs and then fluids were stopped with returned hyponatremia. CT the head completed to exclude acute intracranial pathology which is negative. Patient require admission for further evaluation of his hyponatremia and treatment. [facility] hospitalist contacted. Impression & Plan Hyponatremia, Confusion Discharge Plan Visit Data Chief Complaint: Illness ED Provider: Esdras De Los Santos ED Midlevel Provider: Mu Gleason Discharge Problem: Hyponatremia, Confusion Patient Disposition: Being Evaluated by Hospitalist Discharge Instructions Interventions: ED Discharge Assessment Last Done: 05/28/19 13:36 Forms Stand Alone Forms: My [facility] Prescriptions Prescriptions: No Action atorvastatin 20 mg Tablet 20 mg PO HS RF: 0 celecoxib 200 mg Capsule 200 mg PO DAILY RF: 0 diclofenac sodium 1 % Gel 2 g TOPICAL DIRECTED RF: 0 multivitamin Tablet 1 tab PO QAM RF: 0 Calcium 600 + D(3) 600 mg calcium- 200 unit Capsule 1 cap PO QAM RF: 0 Glucosamine Chondroitin 550-30-1 mg Capsule 1 cap PO QAM RF: 0 aspirin 81 mg Tablet,Delayed Release (Dr/Ec) 81 mg PO QAM RF: 0 sertraline 50 mg tablet 50 mg PO DAILY RF: 0 Referrals Referrals: Dominguez Gonzalez MD [Primary Care Provider] - The scribe's documentation has been prepared under my direction and personally reviewed by me in its entirety. I confirm that the note above accurately ref lects all work, treatment, procedures, and medical decision making performed by me.
[2019-05-28] MEDS ORDERED: ALUMINUM/MAGNESIUM SUSP 30 ML UDC PO PRN (14:33)
[2019-05-28 15:17] LABS: Partial Thromboplastin Ratio 1.1; Partial Thromboplastin Time 30.2 Seconds (21.0-31.0)
[2019-05-28] MEDS: DICLOFENAC SOD 1% GEL 100 GM TUBE EXT SCH ×2 (15:47→19:56)
[2019-05-28] MEDS ORDERED: SODIUM CHLORIDE 0.9% 1000ML 500 ML IV ONE (16:15)
[2019-05-28] MEDS: ATORVASTATIN 20 MG TAB PO SCH (19:56)
[2019-05-28] MEDS: ENOXAPARIN INJ 40 MG/0.4 ML SYR SQ SCH (19:56)
[2019-05-28] MEDS ORDERED: POLYETHYLENE (MIRALAX) 17 GM PACK PO PRN (20:02)
[2019-05-29 06:48] LABS: BUN Creatinine Ratio 25.6 (10-20); Calcium 8.2 mg/dl (8.5-10.1); Creatinine Clr Calc Pharmacy 63.8 ml/min; Est GFR (African American) 94.4; Est GFR (Non-African American) 81.5; Potassium 4.3 mmol/L (3.5-5.1)
[2019-05-29] MEDS ORDERED: SODIUM CHLORIDE 0.9% 1000ML 1,000 ML IV ONE (07:17)
[2019-05-29] MEDS: DICLOFENAC SOD 1% GEL 100 GM TUBE EXT SCH ×4 (09:19→20:37)
[2019-05-29] MEDS: CALCIUM 600MG + VIT D 400 IU TAB PO SCH (09:20)
[2019-05-29] MEDS: ASPIRIN 81 MG ECTAB PO SCH (09:20)
[2019-05-29] MEDS: CeleBREX 200 MG CAP PO SCH (09:20)
[2019-05-29 09:26] LABS: BUN Creatinine Ratio 23.1 (10-20); Calcium 8.5 mg/dl (8.5-10.1); Creatinine Clr Calc Pharmacy 55.1 ml/min; Est GFR (African American) 88.9; Est GFR (Non-African American) 76.7
[2019-05-29] MEDS: ACETAMINOPHEN 325 MG TAB PO PRN (12:24)
--- NOTE | 2019-05-29 12:47 | Hospitalist Progress Note ---
Date of Service May 29, 2019 Assessment & Plan (1) Hyponatremia: Patient presented with sodium level of 125, his previous levels were 135 earlier this month, and 138 in April (last month) Etiology is unclear, possibly secondary to very poor oral intake, SIADH, or side effect of SSRI, or combination of these factors Patient was started on Zoloft about 2 weeks ago, will hold for now Received half liter of normal saline in the ED, sodium level on recheck several hours later was 127 Serum osmolality, urine osmolality and urine sodium were ordered Serum osm 271, urine osm 620 and sodium excretion in the urine is 64 TSH was ordered as part of the work-up in the ED, and was normal The cause of hyponatremia seems to be multifactorial We will continue with intravenous normal saline and increase oral intake of sodium Monitor sodium level in the hospital We will consider to obtain FEurea, cortisol level (to rule out adrenal insufficiency), nephrology consult, if sodium does not improve (2) Confusion: Likely secondary to metabolic encephalopathy due to hyponatremia Resolved, patient is alert and oriented and able to answer questions without any difficulty Work-up in the ED included head CT which was negative, chest x-ray which was also negative, EKG showed bradycardia and first-degree AV block No evidence of infection found (3) Weight loss: Most likely secondary to poor oral intake BMI 21, which is normal Albumin 2.8 Per patient's son, patient lost about 40 pounds in the past 5 months Patient endorses poor appetite, etiology unclear, possibly secondary to depression Denies having any difficulty with eating/drinking, such as dysphasia or abdominal discomfort Will encourage oral intake, discussed with nursing staff Will order boost 4 times daily We will consult dietitian (4) Depression: Patient had a several recent stressors, such as move to [facility], and leaving of his longtime girlfriend to [place] He denies any SI/HI, does not have any thoughts of hurting himself He does have a very poor appetite, which can be secondary to above History of mirtazapine use, which was discontinued and switched to Zoloft about 2 weeks ago Given his hyponatremia, and possibility of SSRI being the culprit, we will discontinue Zoloft during this admission No evidence of any anxiety or depression (5) Dyslipidemia: No current issues Continue home statin (6) Hypertension: Currently patient's blood pressure is well controlled Patient does not take any home medications for BP We will continue to monitor (7) Hip pain, right: Secondary to chronic right hip arthritis Takes home NSAIDs, will continue during his hospitalization Pain well controlled at this time, will add Tylenol as needed Already scheduled for an outpatient ortho evaluation We will get PT and OT evaluation before discharge (8) DVT prophylaxis: Lovenox subq Encourage ambulation (9) Discharge planning issues: Currently resides at [facility], will consult PT to see if he has other needs for discharge. Current PCP, Dr. Gonzalez. After discharge patient may follow-up with his PCP or physician at [place]. Subjective 05/29 The patient was seen and examined in telemetry unit He was admitted with one episode of confusion and noted to have hyponatremia His confusion is resolved but hyponatremia persists Complains of weakness but denies any other acute symptoms Review of Systems Constitutional: + weakness, + anorexia and + weight loss (40 lbs); no fever Ear, Nose, Mouth, Throat: + hearing loss; no pain with swallowing and no neck lump Patient uses hearing aids Cardiovascular: no chest pain Gastrointestinal: + constipation; no abdominal pain, no nausea, no hematemesis, no pain with swallowing, no dysphagia and no fecal incontinence Genitourinary: + urinary hesitancy Musculoskeletal: + joint pain (R hip) and + limited range of motion (of R hip d/t pain); no deformity and no swelling Integumentary: + dry skin; no erythema, no pruritus and no yellowing of the skin Neurologic: + unsteadiness, + falls (hx of fall ) and + generalized weakness; no tingling, no numbness, no dizziness, no syncope, no abnormal speech and no confusion Psychiatric: + anhedonia; no suicidal ideation, no hallucinations and no visual hallucinations Hematologic / Lymphatic: + weight loss (in the setting of poor oral intake) Physical Exam Physical Exam: Lying in bed comfortably Constitutional: + ill appearing and + thin; no acute distress Eyes: PERRL, conjunctivae normal, anicteric sclerae + anicteric sclerae and EOM intact bilaterally ENMT: external ear and nose normal, oropharynx normal Ears: + hearing impairment (uses hearing aids) Mouth: + lip abnormality (dry), + oral mucosal abnormality (dry) and + dentition abnormality (poor dentition) Respiratory: normal respiratory effort, lungs clear to auscultation does not use accessory muscles and no cough Auscultation: no crackles, no rhonchi and no wheezes Cardiovascular: Rate/Rhythm: regular rate and regular rhythm Heart Sounds: normal S1 and normal S2; no click and no gallop Palpation: no thrill Vessels: no JVD Extremities: no edema Chest (Breasts): Chest: normal inspection of chest Gastrointestinal (Abdomen): Inspection/Auscultation: abdomen normal to inspection and normal bowel sounds; abdomen not distended Percussion/Palpation: abdomen soft; abdomen nontender, no guarding and abdomen not rigid Musculoskeletal: Extremities: extremities normal to inspection and + limited ROM of extremities (R hip ROM limited); no cyanosis and no petechiae Skin: no rashes, warm and dry no rashes and no jaundice Neurologic: PERRL, EOMI, accommodation nl, no face palsy, no dysarthria moves all extremities; no focal motor deficits Speech / Cognition: normal speech Motor/Sensory: no tremor Generally weak and lethargic Psychiatric: Orientation: alert and oriented x 3 Speech: normal rate/rhythm/volume of speech Affect: + depressed affect Lymphatic: no lymphedema, no cervical lymphadenopathy and no subclavicular lymphadenopathy Results & Data Vital Signs (Past 12 Hours) Vital Signs Temp Pulse Pulse Resp BP Pulse Ox 05/29/19 11:15 36.6 C 64 18 165/71 H 95 05/29/19 09:59 55 L 05/29/19 08:00 36.6 C 64 16 127/71 97 05/29/19 03:20 36.6 C 57 L 16 146/74 H 96 Laboratory Results BMP 05/28/19 05/28/19 05/28/19 14:56 18:18 22:16 Sodium 127 L 125 L 126 L Potassium Chloride Carbon Dioxide BUN Creatinine Glucose Calcium 05/29/19 05/29/19 06:00 08:46 Sodium 126 L 126 L Potassium 4.3 4.0 Chloride 95 L 93 L Carbon Dioxide 26 26 BUN 19 H 20 H Creatinine 0.76 0.88 Glucose 80 133 H Calcium 8.2 L 8.5 Medications Administered Current Inpatient Medications Acetaminophen (Tylenol) 650 mg PO Q4H PRN PRN Reason: Pain or Fever Stop: 06/27/19 14:32 Last Admin: 05/29/19 12:24 Dose: 650 mg Documented by: Al Hydrox/Mg Hydrox/Simethicone (Maalox) 15 ml PO Q4H PRN PRN Reason: Dyspepsia Stop: 06/27/19 14:32 Aspirin (Ecotrin Ectab) 81 mg PO QAM [facility] Stop: 06/28/19 08:59 Last Admin: 05/29/19 09:20 Dose: 81 mg Documented by: Atorvastatin Calcium (Lipitor) 20 mg PO HS [facility] Stop: 06/27/19 20:59 Last Admin: 05/28/19 19:56 Dose: 20 mg Documented by: Celecoxib (Celebrex) 200 mg PO DAILY [facility] Stop: 06/28/19 08:59 Last Admin: 05/29/19 09:20 Dose: 200 mg Documented by: Diclofenac Sodium (Voltaren 1% Top) 2 gm EXT QID [facility] Stop: 06/27/19 16:59 Last Admin: 05/29/19 09:19 Dose: 2 gm Documented by: Enoxaparin Sodium (Lovenox) 40 mg SQ HS [facility] Stop: 06/27/19 20:59 Last Admin: 05/28/19 19:56 Dose: 40 mg Documented by: Sodium Chloride (Nss 1000ml) 1,000 mls @ 75 mls/hr IV .[id number] ONE Stop: 05/29/19 20:36 Last Infusion: 05/29/19 09:41 Dose: 75 mls/hr Documented by: Multivitamins/Minerals (Caltrate Plus) 1 tab PO QAM [facility] Stop: 06/28/19 08:59 Last Admin: 05/29/19 09:20 Dose: 1 tab Documented by: Polyethylene Glycol (Miralax Powder Packet) 17 gm PO DAILY PRN PRN Reason: Constipation Stop: 06/27/19 20:01 Last Admin: 05/28/19 20:11 Dose: 17 gm Documented by: (1) Depression Depression Type: unspecified Qualified Code(s): F32.9 - Major depressive d isorder, single episode, unspecified (2) Hypertension Hypertension type: unspecified Qualified Code(s): I10 - Essential (primary) hypertension
[2019-05-29 16:54] LABS: BUN Creatinine Ratio 26.6 (10-20); Calcium 7.9 mg/dl (8.5-10.1); Creatinine Clr Calc Pharmacy 53.3 ml/min; Est GFR (African American) 86.9; Magnesium 1.9 mg/dl (1.8-2.4); Potassium 4.5 mmol/L (3.5-5.1)
[2019-05-29] MEDS: SODIUM CHLORIDE 1 GM TABLET PO SCH (20:36)
[2019-05-29] MEDS: ENOXAPARIN INJ 40 MG/0.4 ML SYR SQ SCH (20:36)
[2019-05-29] MEDS: ATORVASTATIN 20 MG TAB PO SCH (20:36)
[2019-05-30 06:38] LABS: Basophils # (auto) 0.01 K/uL (0-0.2); Basophils % (auto) 0.1 %; Hematocrit (blood only) 34.5 % (42-52); Hemoglobin 11.8 g/dL (14.0-18.0); Immature Granulocytes # (auto) 0.03 K/uL (0.00-0.02); Immature Granulocytes % (auto) 0.3 %; Lymphocytes # (auto) 2.29 K/uL (1.2-3.4); Lymphocytes % (auto) 23.3 %; Mean Corpuscular Hemoglobin 31.2 pg (25-34); Mean Corpuscular Hgb Conc 34.2 g/dL (32-36); Mean Corpuscular Volume 91.3 fL (80-100); Mean Platelet Volume 10.9 fL (7.4-10.4); Monocytes # (auto) 0.96 K/uL (0.11-0.59); Monocytes % (auto) 9.8 %; Neutrophils # (auto) 6.42 K/uL (1.4-6.5); Neutrophils % (auto) 65.5 %; Platelet Count 185 K/uL (130-400); RDW Coefficient of Variation 12.9 % (11.5-14.5); Red Blood Count 3.78 M/uL (4.7-6.1); White Blood Count 9.81 K/uL (4.8-10.8)
[2019-05-30] MEDS: CALCIUM 600MG + VIT D 400 IU TAB PO SCH (08:06)
[2019-05-30] MEDS: CeleBREX 200 MG CAP PO SCH (08:07)
[2019-05-30] MEDS: SODIUM CHLORIDE 1 GM TABLET PO SCH ×2 (08:08→20:03)
[2019-05-30] MEDS: ASPIRIN 81 MG ECTAB PO SCH (08:08)
[2019-05-30] MEDS: DICLOFENAC SOD 1% GEL 100 GM TUBE EXT SCH ×5 (08:09→20:02)
[2019-05-30] MEDS ORDERED: ESCITALOPRAM OXALATE 10 MG TAB PO SCH (09:00)
[2019-05-30 09:25] LABS: BUN Creatinine Ratio 24.7 (10-20); Calcium 8.3 mg/dl (8.5-10.1); Creatinine Clr Calc Pharmacy 60.9 ml/min; Est GFR (African American) 92.9; Est GFR (Non-African American) 80.2; Magnesium 1.9 mg/dl (1.8-2.4); Potassium 4.5 mmol/L (3.5-5.1)
[2019-05-30 09:29] LABS: Phosphorus 2.3 mg/dl (2.5-4.9)
[2019-05-30] MEDS ORDERED: DULOXETINE HCL 20 MG CAP PO SCH (09:30)
[2019-05-30] MEDS: SODIUM CHLORIDE 0.9% 1000ML 1,000 ML IV SCH ×2 (09:46→17:32)
--- NOTE | 2019-05-30 10:32 | Hospitalist Progress Note ---
Date of Service May 30, 2019 Assessment & Plan (1) Hyponatremia: Patient presented with sodium level of 125, his previous levels were 135 earlier this month, and 138 in April (last month) Etiology is unclear, possibly secondary to very poor oral intake, SIADH, or side effect of SSRI, or combination of these factors Patient was started on Zoloft about 2 weeks ago, will hold for now Received half liter of normal saline in the ED, sodium level on recheck several hours later was 127 Serum osmolality, urine osmolality and urine sodium were ordered Serum osm 271, urine osm 620 and sodium excretion in the urine is 64 TSH was ordered as part of the work-up in the ED, and was normal The cause of hyponatremia seems to be multifactorial We will continue with intravenous normal saline and increase oral intake of sodium Monitor sodium level in the hospital Sodium level is 129 today We will continue with small amount of intravenous fluid low sodium tablet for now He will start with Remeron 50 mg once daily for depression We will consider to obtain FEurea, cortisol level (to rule out adrenal insufficiency), nephrology consult, if sodium does not improve (2) Confusion: Likely secondary to metabolic encephalopathy due to hyponatremia Resolved, patient is alert and oriented and able to answer questions without any difficulty Work-up in the ED included head CT which was negative, chest x-ray which was also negative, EKG showed bradycardia and first-degree AV block No evidence of infection found No more confusion (3) Weight loss: Most likely secondary to poor oral intake BMI 21, which is normal Albumin 2.8 Per patient's son, patient lost about 40 pounds in the past 5 months Patient endorses poor appetite, etiology unclear, possibly secondary to depression Denies having any difficulty with eating/drinking, such as dysphasia or abdominal discomfort Will encourage oral intake, discussed with nursing staff Will order boost 4 times daily We will consult dietitian (4) Depression: Patient had a several recent stressors, such as move to [facility], and leaving of his longtime girlfriend to [place] He denies any SI/HI, does not have any thoughts of hurting himself He does have a very poor appetite, which can be secondary to above History of mirtazapine use, which was discontinued and switched to Zoloft about 2 weeks ago Given his hyponatremia, and possibility of SSRI being the culprit, we will discontinue Zoloft during this admission No evidence of any anxiety or depression Remeron 15 mg has been started (5) Dyslipidemia: No current issues Continue home statin (6) Hypertension: Currently patient's blood pressure is well controlled Patient does not take any home medications for BP We will continue to monitor (7) Hip pain, right: Secondary to chronic right hip arthritis Takes home NSAIDs, will continue during his hospitalization Pain well controlled at this time, will add Tylenol as needed Already scheduled for an outpatient ortho evaluation We will get PT and OT evaluation before discharge (8) DVT prophylaxis: Lovenox subq Encourage ambulation (9) Discharge planning issues: Currently resides at [facility], will consult PT to see if he has other needs for discharge. Current PCP, Dr. Gonzalez. After discharge patient may follow-up with his PCP or physician at [place]. Likely discharge tomorrow Subjective 05/29 The patient was seen and examined in telemetry unit He was admitted with one episode of confusion and noted to have hyponatremia His confusion is resolved but hyponatremia persists Complains of weakness but denies any other acute symptoms 05/30 The patient was seen and examined in telemetry unit Complaint history of generalized weakness and depression Denies any acute confusion He has been feeling better since admission Review of Systems Review of Systems: All systems reviewed and are unremarkable except as noted below Constitutional: + weakness, + anorexia and + weight loss (40 lbs); no fever Ear, Nose, Mouth, Throat: + hearing loss; no pain with swallowing and no neck lump Patient uses hearing aids Gastrointestinal: + constipation; no abdominal pain, no nausea, no hematemesis, no pain with swallowing, no dysphagia and no fecal incontinence Genitourinary: + urinary hesitancy Musculoskeletal: + joint pain (R hip) and + limited range of motion (of R hip d/t pain); no deformity and no swelling Integumentary: + dry skin; no erythema, no pruritus and no yellowing of the skin Neurologic: + unsteadiness, + falls (hx of fall ) and + generalized weakness; no tingling, no numbness, no dizziness, no syncope, no abnormal speech and no confusion Psychiatric: + anhedonia; no suicidal ideation, no hallucinations and no visual hallucinations Hematologic / Lymphatic: + weight loss (in the setting of poor oral intake) Physical Exam Physical Exam: Lying in bed comfortably Constitutional: + ill appearing and + thin; no acute distress Eyes: PERRL, conjunctivae normal, anicteric sclerae + anicteric sclerae and EOM intact bilaterally ENMT: external ear and nose normal, oropharynx normal Ears: + hearing impairment (uses hearing aids) Mouth: + lip abnormality (dry), + oral mucosal abnormality (dry) and + dentition abnormality (poor dentition) Respiratory: normal respiratory effort; does not use accessory muscles and no cough Auscultation: lungs clear to auscultation bilaterally; no crackles, no rhonchi and no wheezes Cardiovascular: Rate/Rhythm: regular rate and regular rhythm Heart Sounds: normal S1 and normal S2; no click and no gallop Palpation: no thrill Vessels: no JVD Extremities: no edema Chest (Breasts): Chest: normal inspection of chest Gastrointestinal (Abdomen): Inspection/Auscultation: abdomen normal to inspection and normal bowel sounds; abdomen not distended Percussion/Palpation: abdomen soft; abdomen nontender, no guarding and abdomen not rigid Musculoskeletal: Extremities: extremities normal to inspection and + limited ROM of extremities (R hip ROM limited); no cyanosis and no petechiae Skin: no rashes, warm and dry no rashes and no jaundice Neurologic: moves all extremities; no focal motor deficits Speech / Cognition: normal speech Motor/Sensory: no tremor Psychiatric: Orientation: alert and oriented x 3 Speech: normal rate/rhyt hm/volume of speech Affect: + depressed affect Lymphatic: no lymphedema, no cervical lymphadenopathy and no subclavicular lymphadenopathy Results & Data Vital Signs (Past 12 Hours) Vital Signs Temp Pulse Pulse Resp BP Pulse Ox 05/30/19 08:00 36.5 C 69 12 133/70 98 05/30/19 07:53 60 05/30/19 03:17 36.4 C L 64 19 167/73 H 97 05/30/19 00:12 36.4 C L 60 15 137/68 96 Laboratory Results Short CBC 05/30/19 Range/Units 06:13 WBC 9.81 (4.8-10.8) K/uL Hgb 11.8 L (14.0-18.0) g/dL Hct 34.5 L (42-52) % Plt Count 185 (130-400) K/uL BMP 05/29/19 05/30/19 16:04 06:13 Sodium 126 L 129 L Potassium 4.5 4.5 Chloride 95 L 97 L Carbon Dioxide 27 27 BUN 24 H 20 H Creatinine 0.91 0.79 Glucose 92 81 Calcium 7.9 L 8.3 L Medications Administered Current Inpatient Medications Acetaminophen (Tylenol) 650 mg PO Q4H PRN PRN Reason: Pain or Fever Stop: 06/27/19 14:32 Last Admin: 05/29/19 12:24 Dose: 650 mg Documented by: Al Hydrox/Mg Hydrox/Simethicone (Maalox) 15 ml PO Q4H PRN PRN Reason: Dyspepsia Stop: 06/27/19 14:32 Aspirin (Ecotrin Ectab) 81 mg PO QAM [facility] Stop: 06/28/19 08:59 Last Admin: 05/30/19 08:08 Dose: 81 mg Documented by: Atorvastatin Calcium (Lipitor) 20 mg PO HS [facility] Stop: 06/27/19 20:59 Last Admin: 05/29/19 20:36 Dose: 20 mg Documented by: Celecoxib (Celebrex) 200 mg PO DAILY [facility] Stop: 06/28/19 08:59 Last Admin: 05/30/19 08:07 Dose: 200 mg Documented by: Diclofenac Sodium (Voltaren 1% Top) 2 gm EXT QID [facility] Stop: 06/27/19 16:59 Last Admin: 05/30/19 08:13 Dose: Not Given Documented by: Enoxaparin Sodium (Lovenox) 40 mg SQ HS [facility] Stop: 06/27/19 20:59 Last Admin: 05/29/19 20:36 Dose: 40 mg Documented by: Sodium Chloride (Nss 1000ml) 1,000 mls @ 125 mls/hr IV .Q8H [facility] Stop: 05/31/19 09:14 Last Admin: 05/30/19 09:46 Dose: 125 mls/hr Documented by: Mirtazapine (Remeron) 15 mg PO HS [facility] Stop: 06/29/19 20:59 Multivitamins/Minerals (Caltrate Plus) 1 tab PO QAM [facility] Stop: 06/28/19 08:59 Last Admin: 05/30/19 08:06 Dose: 1 tab Documented by: Polyethylene Glycol (Miralax Powder Packet) 17 gm PO DAILY PRN PRN Reason: Constipation Stop: 06/27/19 20:01 Last Admin: 05/28/19 20:11 Dose: 17 gm Documented by: Sodium Chloride (Sodium Chloride) 1 gm PO BID [facility] Stop: 06/28/19 20:59 Last Admin: 05/30/19 08:08 Dose: 1 gm Documented by: (1) Depression Depression Type: unspecified Qualified Code(s): F32.9 - Major depressive disorder, single episode, unspecified (2) Hypertension Hypertension type: unspecified Qualified Code(s): I10 - Essential (primary) hypertension
[2019-05-30] MEDS: ATORVASTATIN 20 MG TAB PO SCH (20:03)
[2019-05-30] MEDS: ENOXAPARIN INJ 40 MG/0.4 ML SYR SQ SCH (20:03)
[2019-05-30] MEDS: MIRTAZAPINE TAB 15 MG TAB PO SCH (20:03)
[2019-05-31] MEDS: SODIUM CHLORIDE 0.9% 1000ML 1,000 ML IV SCH (01:14)
[2019-05-31 06:43] LABS: BUN Creatinine Ratio 21.2 (10-20); Calcium 8.6 mg/dl (8.5-10.1); Creatinine Clr Calc Pharmacy 59.4 ml/min; Est GFR (Non-African American) 79.4; Potassium 3.8 mmol/L (3.5-5.1)
[2019-05-31] MEDS: CeleBREX 200 MG CAP PO SCH (08:44)
[2019-05-31] MEDS: SODIUM CHLORIDE 1 GM TABLET PO SCH ×2 (08:44→21:03)
[2019-05-31] MEDS: CALCIUM 600MG + VIT D 400 IU TAB PO SCH (08:44)
[2019-05-31] MEDS: ASPIRIN 81 MG ECTAB PO SCH (08:45)
[2019-05-31] MEDS: DICLOFENAC SOD 1% GEL 100 GM TUBE EXT SCH ×4 (08:45→21:04)
[2019-05-31] MEDS: ATORVASTATIN 20 MG TAB PO SCH (21:02)
[2019-05-31] MEDS: ENOXAPARIN INJ 40 MG/0.4 ML SYR SQ SCH (21:02)
[2019-05-31] MEDS: MIRTAZAPINE TAB 15 MG TAB PO SCH (21:03)
[2019-06-01] MEDS: CALCIUM 600MG + VIT D 400 IU TAB PO SCH (08:34)
[2019-06-01] MEDS: SODIUM CHLORIDE 1 GM TABLET PO SCH ×2 (08:34→20:40)
[2019-06-01] MEDS: CeleBREX 200 MG CAP PO SCH (08:34)
[2019-06-01] MEDS: ASPIRIN 81 MG ECTAB PO SCH (08:34)
[2019-06-01] MEDS: ACETAMINOPHEN 325 MG TAB PO PRN (08:40)
[2019-06-01] MEDS: DICLOFENAC SOD 1% GEL 100 GM TUBE EXT SCH ×4 (08:41→20:41)
--- NOTE | 2019-06-01 12:59 | Hospitalist Progress Note ---
Date of Service This is a bill for 05/31June 01, 2019 Assessment & Plan (1) Hyponatremia: Patient presented with sodium level of 125, his previous levels were 135 earlier this month, and 138 in April (last month) Etiology is unclear, possibly secondary to very poor oral intake, SIADH, or side effect of SSRI, or combination of these factors Patient was started on Zoloft about 2 weeks ago, will hold for now Received half liter of normal saline in the ED, sodium level on recheck several hours later was 127 Serum osmolality, urine osmolality and urine sodium were ordered Serum osm 271, urine osm 620 and sodium excretion in the urine is 64 TSH was ordered as part of the work-up in the ED, and was normal The cause of hyponatremia seems to be multifactorial We will continue with intravenous normal saline and increase oral intake of sodium Monitor sodium level in the hospital Sodium level is 129 today We will continue with small amount of intravenous fluid low sodium tablet for now He will start with Remeron 50 mg once daily for depression Sodium has been normalized We will consider to obtain FEurea, cortisol level (to rule out adrenal insufficiency), nephrology consult, if sodium does not improve (2) Confusion: Likely secondary to metabolic encephalopathy due to hyponatremia Resolved, patient is alert and oriented and able to answer questions without any difficulty Work-up in the ED included head CT which was negative, chest x-ray which was also negative, EKG showed bradycardia and first-degree AV block No evidence of infection found No more confusion (3) Weight loss: Most likely secondary to poor oral intake BMI 21, which is normal Albumin 2.8 Per patient's son, patient lost about 40 pounds in the past 5 months Patient endorses poor appetite, etiology unclear, possibly secondary to depression Denies having any difficulty with eating/drinking, such as dysphasia or abdominal discomfort Will encourage oral intake, discussed with nursing staff Will order boost 4 times daily We will consult dietitian (4) Depression: Patient had a several recent stressors, such as move to [facility], and leaving of his longtime girlfriend to [place] He denies any SI/HI, does not have any thoughts of hurting himself He does have a very poor appetite, which can be secondary to above History of mirtazapine use, which was discontinued and switched to Zoloft about 2 weeks ago Given his hyponatremia, and possibility of SSRI being the culprit, we will discontinue Zoloft during this admission No evidence of any anxiety or depression Remeron 15 mg has been started Denies any symptoms of depression (5) Dyslipidemia: No current issues Continue home statin (6) Hypertension: Currently patient's blood pressure is well controlled Patient does not take any home medications for BP We will continue to monitor (7) Hip pain, right: Secondary to chronic right hip arthritis Takes home NSAIDs, will continue during his hospitalization Pain well controlled at this time, will add Tylenol as needed Already scheduled for an outpatient ortho evaluation We will get PT and OT evaluation before discharge (8) DVT prophylaxis: Lovenox subq Encourage ambulation (9) Discharge planning issues: Currently resides at [facility], will consult PT to see if he has other needs for discharge. Current PCP, Dr. Gonzalez. After discharge patient may follow-up with his PCP or physician at [place]. Son is willing for him to go to a rehab facility Subjective 05/29 The patient was seen and examined in telemetry unit He was admitted with one episode of confusion and noted to have hyponatremia His confusion is resolved but hyponatremia persists Complains of weakness but denies any other acute symptoms 05/30 The patient was seen and examined in telemetry unit Complaint history of generalized weakness and depression Denies any acute confusion He has been feeling better since admission 05/31 The patient was seen and examined in telemetry unit He has been feeling a lot better He has been getting PT and OT evaluation for possible placement Review of Systems Review of Systems: All systems reviewed and are unremarkable except as noted below Constitutional: + weakness, + anorexia and + weight loss (40 lbs); no fever Ear, Nose, Mouth, Throat: + hearing loss; no pain with swallowing and no neck lump Patient uses hearing aids Gastrointestinal: + constipation; no abdominal pain, no nausea, no hematemesis, no pain with swallowing, no dysphagia and no fecal incontinence Genitourinary: + urinary hesitancy Musculoskeletal: + joint pain (R hip) and + limited range of motion (of R hip d/t pain); no deformity and no swelling Integumentary: + dry skin; no erythema, no pruritus and no yellowing of the skin Neurologic: + unsteadiness, + falls (hx of fall ) and + generalized weakness; no tingling, no numbness, no dizziness, no syncope, no abnormal speech and no confusion Psychiatric: + anhedonia; no suicidal ideation, no hallucinations and no visual hallucinations Hematologic / Lymphatic: + weight loss (in the setting of poor oral intake) Physical Exam Physical Exam: No apparent distress at rest Constitutional: + ill appearing and + thin; no acute distress Eyes: PERRL, conjunctivae normal, anicteric sclerae + anicteric sclerae and EOM intact bilaterally ENMT: external ear and nose normal, oropharynx normal Ears: + hearing impairment (uses hearing aids) Mouth: + lip abnormality (dry), + oral mucosal abnormality (dry) and + dentition abnormality (poor dentition) Respiratory: normal respiratory effort, lungs clear to auscultation normal respiratory effort; does not use accessory muscles and no cough Auscultation: lungs clear to auscultation bilaterally; no crackles, no rhonchi and no wheezes Cardiovascular: Rate/Rhythm: regular rate and regular rhythm Heart Sounds: normal S1 and normal S2; no click and no gallop Palpation: no thrill Vessels: no JVD Extremities: no edema Chest (Breasts): Chest: normal inspection of chest Gastrointestinal (Abdomen): Inspection/Auscultation: abdomen normal to inspection and normal bowel sounds; abdomen not distended Percussion/Palpation: abdomen soft; abdomen nontender, no guarding and abdomen not rigid Musculoskeletal: Extremities: extremities normal to inspection and + limited ROM of extremities (R hip ROM limited); no cyanosis and no petechiae Skin: no rashes, warm and dry no rashes and no jaundice Neurologic: PERRL, EOMI, accommodation nl, no face palsy, no dysarthria moves all extremities; no focal motor deficits Speech / Cognition: normal speech Motor/Sensory: no tremor Psychiatric: Orientation: alert and oriented x 3 Speech: normal rate/rhythm/volume of speech Affect: + depressed affect Lymphatic: no lymphedema, no cervical lymphadenopathy and no subclavicular lymphadenopathy Results & Data Vital Signs (Past 12 Hours) Vital Signs Temp Pulse Pulse Resp BP BP Pulse Ox 06/01/19 12:04 36.5 C 65 16 112/69 94 06/01/19 08:00 61 06/01/19 07:02 36.3 C L 66 17 163/70 H 96 06/01/19 03:50 36.5 C 65 18 175/78 H 96 (1) Depression Depression Type: unspecified Qualified Code(s): F32.9 - Major depressive disorder, single episode, unspecified (2) Hypertension Hypertension type: unspecified Qualified Code(s): I10 - Essential (primary) hypertension
--- NOTE | 2019-06-01 13:20 | Hospitalist Progress Note ---
Date of Service June 01, 2019 Assessment & Plan (1) Hyponatremia: Patient presented with sodium level of 125, his previous levels were 135 earlier this month, and 138 in April (last month) Etiology is unclear, possibly secondary to very poor oral intake, SIADH, or side effect of SSRI, or combination of these factors Patient was started on Zoloft about 2 weeks ago, will hold for now Received half liter of normal saline in the ED, sodium level on recheck several hours later was 127 Serum osmolality, urine osmolality and urine sodium were ordered Serum osm 271, urine osm 620 and sodium excretion in the urine is 64 TSH was ordered as part of the work-up in the ED, and was normal The cause of hyponatremia seems to be multifactorial We will continue with intravenous normal saline and increase oral intake of sodium Monitor sodium level in the hospital Sodium level is 129 today We will continue with small amount of intravenous fluid low sodium tablet for now He will start with Remeron 15 mg once daily for depression Sodium has been normalized Clinically stable We will consider to obtain FEurea, cortisol level (to rule out adrenal insufficiency), nephrology consult, if sodium does not improve (2) Confusion: Likely secondary to metabolic encephalopathy due to hyponatremia Resolved, patient is alert and oriented and able to answer questions without any difficulty Work-up in the ED included head CT which was negative, chest x-ray which was also negative, EKG showed bradycardia and first-degree AV block No evidence of infection found No more confusion (3) Weight loss: Most likely secondary to poor oral intake BMI 21, which is normal Albumin 2.8 Per patient's son, patient lost about 40 pounds in the past 5 months Patient endorses poor appetite, etiology unclear, possibly secondary to depression Denies having any difficulty with eating/drinking, such as dysphasia or abdominal discomfort Will encourage oral intake, discussed with nursing staff Will order boost 4 times daily We will consult dietitian Has been getting boost (4) Depression: Patient had a several recent stressors, such as move to [facility], and leaving of his longtime girlfriend to [place] He denies any SI/HI, does not have any thoughts of hurting himself He does have a very poor appetite, which can be secondary to above History of mirtazapine use, which was discontinued and switched to Zoloft about 2 weeks ago Given his hyponatremia, and possibility of SSRI being the culprit, we will discontinue Zoloft during this admission No evidence of any anxiety or depression Remeron 15 mg has been started Denies any symptoms of depression (5) Dyslipidemia: No current issues Continue home statin (6) Hypertension: Currently patient's blood pressure is well controlled Patient does not take any home medications for BP We will continue to monitor Blood pressure remains controlled (7) Hip pain, right: Secondary to chronic right hip arthritis Takes home NSAIDs, will continue during his hospitalization Pain well controlled at this time, will add Tylenol as needed Already scheduled for an outpatient ortho evaluation Awaiting Ortho evaluation and recommendation (8) DVT prophylaxis: Lovenox subq Encourage ambulation (9) Discharge planning issues: Currently resides at [facility], will consult PT to see if he has other needs for discharge. Current PCP, Dr. Gonzalez. After discharge patient may follow-up with his PCP or physician at [facility]. Son is willing for him to go to a rehab facility PT and OT have been ordered for possible placement for short-term rehab Subjective 05/29 The patient was seen and examined in telemetry unit He was admitted with one episode of confusion and noted to have hyponatremia His confusion is resolved but hyponatremia persists Complains of weakness but denies any other acute symptoms 05/30 The patient was seen and examined in telemetry unit Complaint history of generalized weakness and depression Denies any acute confusion He has been feeling better since admission 05/31 The patient was seen and examined in telemetry unit He has been feeling a lot better He has been getting PT and OT evaluation for possible placement 06/01 The patient was seen and examined in telemetry unit He is out of bed on a chair without any symptoms He has been feeling a lot better He has been awaiting to be placed Review of Systems Review of Systems: All systems reviewed and are unremarkable except as noted below Constitutional: + weakness, + anorexia and + weight loss (40 lbs); no fever Ear, Nose, Mouth, Throat: + hearing loss; no pain with swallowing and no neck lump Patient uses hearing aids Gastrointestinal: + constipation; no abdominal pain, no nausea, no hematemesis, no pain with swallowing, no dysphagia and no fecal incontinence Genitourinary: + urinary hesitancy Musculoskeletal: + joint pain (R hip) and + limited range of motion (of R hip d/t pain); no deformity and no swelling Integumentary: + dry skin; no erythema, no pruritus and no yellowing of the skin Neurologic: + unsteadiness, + falls (hx of fall ) and + generalized weakness; no tingling, no numbness, no dizziness, no syncope, no abnormal speech and no confusion Psychiatric: + anhedonia; no suicidal ideation, no hallucinations and no visual hallucinations Hematologic / Lymphatic: + weight loss (in the setting of poor oral intake) Physical Exam Physical Exam: Sitting on a chair without any acute symptoms Constitutional: + ill appearing and + thin; no acute distress Eyes: PERRL, conjunctivae normal, anicteric sclerae + anicteric sclerae and EOM intact bilaterally ENMT: external ear and nose normal, oropharynx normal Ears: + hearing impairment (uses hearing aids) Mouth: + lip abnormality (dry), + oral mucosal abnormality (dry) and + dentition abnormality (poor dentition) Respiratory: normal respiratory effort; does not use accessory muscles and no cough Auscultation: lungs clear to auscultation bilaterally; no crackles, no rhonchi and no wheezes Cardiovascular: Rate/Rhythm: regular rate and regular rhythm Heart Sounds: normal S1 and normal S2; no click and no gallop Palpation: no thrill Vessels: no JVD Extremities: no edema Chest (Breasts): Chest: normal inspection of chest Gastrointestinal (Abdomen): Inspection/Auscultation: abdomen normal to inspection and normal bowel sounds; abdomen not distended Percussion/Palpat ion: abdomen soft; abdomen nontender, no guarding and abdomen not rigid Musculoskeletal: Extremities: extremities normal to inspection and + limited ROM of extremities (R hip ROM limited); no cyanosis and no petechiae Skin: no rashes, warm and dry no rashes and no jaundice Neurologic: PERRL, EOMI, accommodation nl, no face palsy, no dysarthria moves all extremities; no focal motor deficits Speech / Cognition: normal speech Motor/Sensory: no tremor Psychiatric: Orientation: alert and oriented x 3 Speech: normal rate/rhythm/volume of speech Affect: + depressed affect Lymphatic: no cervical or axillary lymphadenopathy no lymphedema, no cervical lymphadenopathy and no subclavicular lymphadenopathy Results & Data Vital Signs (Past 12 Hours) Vital Signs Temp Pulse Pulse Resp BP BP Pulse Ox 06/01/19 12:04 36.5 C 65 16 112/69 94 06/01/19 08:00 61 06/01/19 07:02 36.3 C L 66 17 163/70 H 96 06/01/19 03:50 36.5 C 65 18 175/78 H 96 Medications Administered Current Inpatient Medications Acetaminophen (Tylenol) 650 mg PO Q4H PRN PRN Reason: Pain or Fever Stop: 06/27/19 14:32 Last Admin: 06/01/19 08:40 Dose: 650 mg Documented by: Al Hydrox/Mg Hydrox/Simethicone (Maalox) 15 ml PO Q4H PRN PRN Reason: Dyspepsia Stop: 06/27/19 14:32 Aspirin (Ecotrin Ectab) 81 mg PO QAM [facility] Stop: 06/28/19 08:59 Last Admin: 06/01/19 08:34 Dose: 81 mg Documented by: Atorvastatin Calcium (Lipitor) 20 mg PO HS [facility] Stop: 06/27/19 20:59 Last Admin: 05/31/19 21:02 Dose: 20 mg Documented by: Celecoxib (Celebrex) 200 mg PO DAILY [facility] Stop: 06/28/19 08:59 Last Admin: 06/01/19 08:34 Dose: 200 mg Documented by: Diclofenac Sodium (Voltaren 1% Top) 2 gm EXT QID [facility] Stop: 06/27/19 16:59 Last Admin: 06/01/19 08:41 Dose: Not Given Documented by: Enoxaparin Sodium (Lovenox) 40 mg SQ HS [facility] Stop: 06/27/19 20:59 Last Admin: 05/31/19 21:02 Dose: 40 mg Documented by: Mirtazapine (Remeron) 15 mg PO HS [facility] Stop: 06/29/19 20:59 Last Admin: 05/31/19 21:03 Dose: 15 mg Documented by: Multivitamins/Minerals (Caltrate Plus) 1 tab PO QAM [facility] Stop: 06/28/19 08:59 Last Admin: 06/01/19 08:34 Dose: 1 tab Documented by: Polyethylene Glycol (Miralax Powder Packet) 17 gm PO DAILY PRN PRN Reason: Constipation Stop: 06/27/19 20:01 Last Admin: 05/28/19 20:11 Dose: 17 gm Documented by: Sodium Chloride (Sodium Chloride) 1 gm PO BID [facility] Stop: 06/28/19 20:59 Last Admin: 10/19/19 08:34 Dose: 1 gm Documented by: (1) Depression Depression Type: unspecified Qualified Code(s): F32.9 - Major depressive disorder, single episode, unspecified (2) Hypertension Hypertension type: unspecified Qualified Code(s): I10 - Essential (primary) hypertension
[2019-06-01] MEDS: ENOXAPARIN INJ 40 MG/0.4 ML SYR SQ SCH (20:40)
[2019-06-01] MEDS: ATORVASTATIN 20 MG TAB PO SCH (20:40)
[2019-06-01] MEDS: MIRTAZAPINE TAB 15 MG TAB PO SCH (20:40)
[2019-06-02] MEDS: CeleBREX 200 MG CAP PO SCH (08:25)
[2019-06-02] MEDS: ACETAMINOPHEN 325 MG TAB PO PRN ×2 (08:25→16:42)
[2019-06-02] MEDS: CALCIUM 600MG + VIT D 400 IU TAB PO SCH (08:25)
[2019-06-02] MEDS: ASPIRIN 81 MG ECTAB PO SCH (08:25)
[2019-06-02] MEDS: SODIUM CHLORIDE 1 GM TABLET PO SCH (08:25)
[2019-06-02] MEDS: DICLOFENAC SOD 1% GEL 100 GM TUBE EXT SCH ×4 (08:25→21:00)
--- NOTE | 2019-06-02 11:58 | Hospitalist Progress Note ---
Date of Service June 02, 2019 Assessment & Plan (1) Hyponatremia: Patient presented with sodium level of 125, his previous levels were 135 earlier this month, and 138 in April (last month) Etiology is unclear, possibly secondary to very poor oral intake, SIADH, or side effect of SSRI, or combination of these factors Patient was started on Zoloft about 2 weeks ago, will hold for now Received half liter of normal saline in the ED, sodium level on recheck several hours later was 127 Serum osmolality, urine osmolality and urine sodium were ordered Serum osm 271, urine osm 620 and sodium excretion in the urine is 64 TSH was ordered as part of the work-up in the ED, and was normal The cause of hyponatremia seems to be multifactorial We will continue with intravenous normal saline and increase oral intake of sodium Monitor sodium level in the hospital Sodium level is 129 today We will continue with small amount of intravenous fluid low sodium tablet for now He will start with Remeron 15 mg once daily for depression Sodium has been normalized We will advised to more salt in diet and discontinue sodium tablet Monitor PRP (2) Confusion: Likely secondary to metabolic encephalopathy due to hyponatremia Resolved, patient is alert and oriented and able to answer questions without any difficulty Work-up in the ED included head CT which was negative, chest x-ray which was also negative, EKG showed bradycardia and first-degree AV block No evidence of infection found No more confusion (3) Weight loss: Most likely secondary to poor oral intake BMI 21, which is normal Albumin 2.8 Per patient's son, patient lost about 40 pounds in the past 5 months Patient endorses poor appetite, etiology unclear, possibly secondary to depression Denies having any difficulty with eating/drinking, such as dysphasia or abdominal discomfort Will encourage oral intake, discussed with nursing staff Will order boost 4 times daily We will consult dietitian Has been getting boost (4) Depression: Patient had a several recent stressors, such as move to [facility], and leaving of his longtime girlfriend to [place] He denies any SI/HI, does not have any thoughts of hurting himself He does have a very poor appetite, which can be secondary to above History of mirtazapine use, which was discontinued and switched to Zoloft about 2 weeks ago Given his hyponatremia, and possibility of SSRI being the culprit, we will discontinue Zoloft during this admission No evidence of any anxiety or depression Remeron 15 mg has been started Denies any symptoms of depression (5) Dyslipidemia: No current issues Continue home statin (6) Hypertension: Currently patient's blood pressure is well controlled Patient does not take any home medications for BP We will continue to monitor Blood pressure remains controlled (7) Hip pain, right: Secondary to chronic right hip arthritis Takes home NSAIDs, will continue during his hospitalization Pain well controlled at this time, will add Tylenol as needed Already scheduled for an outpatient ortho evaluation Awaiting Ortho evaluation and recommendation Has been getting PT and OT evaluation Likely be discharged tomorrow in a facility (8) DVT prophylaxis: Lovenox subq Encourage ambulation (9) Discharge planning issues: Currently resides at [facility], will consult PT to see if he has other needs for discharge. Current PCP, Dr. Gonzalez. After discharge patient may follow-up with his PCP or physician at [facility]. Son is willing for him to go to a rehab facility PT and OT have been ordered for possible placement for short-term rehab Subjective 05/29 The patient was seen and examined in telemetry unit He was admitted with one episode of confusion and noted to have hyponatremia His confusion is resolved but hyponatremia persists Complains of weakness but denies any other acute symptoms 05/30 The patient was seen and examined in telemetry unit Complaint history of generalized weakness and depression Denies any acute confusion He has been feeling better since admission 05/31 The patient was seen and examined in telemetry unit He has been feeling a lot better He has been getting PT and OT evaluation for possible placement 06/01 The patient was seen and examined in telemetry unit He is out of bed on a chair without any symptoms He has been feeling a lot better He has been awaiting to be placed 06/02 The patient was seen and examined in telemetry unit He has been feeling a lot better but remains weak Complaint history of pain in the right hip with ambulation Denies any other symptoms Review of Systems Review of Systems: All systems reviewed and are unremarkable except as noted below Constitutional: + weakness and + weight loss (40 lbs); no fever Ear, Nose, Mouth, Throat: + hearing loss; no pain with swallowing and no neck lump Patient uses hearing aids Gastrointestinal: + constipation; no abdominal pain, no nausea, no hematemesis, no pain with swallowing, no dysphagia and no fecal incontinence Genitourinary: + urinary hesitancy Musculoskeletal: + joint pain (R hip) and + limited range of motion (of R hip d/t pain); no deformity and no swelling Integumentary: + dry skin; no erythema, no pruritus and no yellowing of the skin Neurologic: + unsteadiness, + falls (hx of fall ) and + generalized weakness; no tingling, no numbness, no dizziness, no syncope, no abnormal speech and no confusion Psychiatric: + anhedonia; no suicidal ideation, no hallucinations and no visual hallucinations Hematologic / Lymphatic: + weight loss (in the setting of poor oral intake) Physical Exam Physical Exam: Lying in bed without any symptoms Constitutional: + ill appearing and + thin; no acute distress Eyes: + anicteric sclerae and EOM intact bilaterally ENMT: external ear and nose normal, oropharynx normal Ears: + hearing impairment (uses hearing aids) Mouth: + lip abnormality (dry), + oral mucosal abnormality (dry) and + dentition abnormality (poor dentition) Neck: trachea midline, no thyromegaly Respiratory: normal respiratory effort, lungs clear to auscultation normal respiratory effort; does not use accessory muscles and no cough Auscultation: lungs clear to auscultation bilaterally; no crackles, no rhonchi and no wheezes Cardiovascular: Rate/Rhythm: regular rate and regular rhythm Heart Sounds: normal S1 and normal S2; no click and no gallop Palpation: no thrill Vessels: no JVD Extremities: no edema Chest (Breasts): Chest: normal inspection of chest Gastrointestinal (Abdomen): Inspection/Auscultation: abdomen normal to inspection and normal bowel sounds; abdomen not distended Percussion/Palpation: abdomen soft; abdomen nontender, no guarding and abdomen not rigid Musculoskeletal: Extremities: extremities normal to inspection and + limited ROM of extremities (R hip ROM limited); no cyanosis and no petechiae Skin: no rashes, warm and dry no rashes and no jaundice Neurologic: PERRL, EOMI, accommodation nl, no face palsy, no dysarthria moves all extremities; no focal motor deficits Speech / Cognition: normal speech Motor/Sensory: no tremor Psychiatric: Orientation: alert and oriented x 3 Speech: normal rate/rhythm/volume of speech Affect: + depressed affect Lymphatic: no cervical or axillary lymphadenopathy no lymphedema, no cervical lymphadenopathy and no subclavicular lymphadenopathy Results & Data Vital Signs (Past 12 Hours) Vital Signs Temp Pulse Pulse Resp BP Pulse Ox 06/02/19 11:05 36.3 C L 71 18 123/69 96 06/02/19 07:49 57 L 06/02/19 07:48 36.5 C 77 18 144/76 H 95 06/02/19 02:50 36.5 C 65 19 159/74 H 96 Medications Administered Current Inpatient Medications Acetaminophen (Tylenol) 650 mg PO Q4H PRN PRN Reason: Pain or Fever Stop: 06/27/19 14:32 Last Admin: 06/02/19 08:25 Dose: 650 mg Documented by: Al Hydrox/Mg Hydrox/Simethicone (Maalox) 15 ml PO Q4H PRN PRN Reason: Dyspepsia Stop: 06/27/19 14:32 Aspirin (Ecotrin Ectab) 81 mg PO QAM [facility] Stop: 06/28/19 08:59 Last Admin: 06/02/19 08:25 Dose: 81 mg Documented by: Atorvastatin Calcium (Lipitor) 20 mg PO HS [facility] Stop: 06/27/19 20:59 Last Admin: 06/01/19 20:40 Dose: 20 mg Documented by: Celecoxib (Celebrex) 200 mg PO DAILY [facility] Stop: 06/28/19 08:59 Last Admin: 06/02/19 08:25 Dose: 200 mg Documented by: Diclofenac Sodium (Voltaren 1% Top) 2 gm EXT QID [facility] Stop: 06/27/19 16:59 Last Admin: 06/02/19 08:25 Dose: 2 gm Documented by: Enoxaparin Sodium (Lovenox) 40 mg SQ HS [facility] Stop: 06/27/19 20:59 Last Admin: 06/01/19 20:40 Dose: 40 mg Documented by: Mirtazapine (Remeron) 15 mg PO HS [facility] Stop: 06/29/19 20:59 Last Admin: 06/01/19 20:40 Dose: 15 mg Documented by: Multivitamins/Minerals (Caltrate Plus) 1 tab PO QAM [facility] Stop: 06/28/19 08:59 Last Admin: 06/02/19 08:25 Dose: 1 tab Documented by: Polyethylene Glycol (Miralax Powder Packet) 17 gm PO DAILY PRN PRN Reason: Constipation Stop: 06/27/19 20:01 Last Admin: 05/28/19 20:11 Dose: 17 gm Documented by: Sodium Chloride (Sodium Chloride) 1 gm PO BID [facility] Stop: 06/28/19 20:59 Last Admin: 06/02/19 08:25 Dose: 1 gm Documented by: (1) Depression Depression Type: unspecified Qualified Code(s): F32.9 - Major depressive disorder, single episode, unspecified (2) Hypertension Hypertension type: unspecified Qualified Code(s): I10 - Essential (primary) hypertension
[2019-06-02] MEDS: ATORVASTATIN 20 MG TAB PO SCH (20:59)
[2019-06-02] MEDS: MIRTAZAPINE TAB 15 MG TAB PO SCH (20:59)
[2019-06-02] MEDS: ENOXAPARIN INJ 40 MG/0.4 ML SYR SQ SCH (20:59)
[2019-06-03 07:50] LABS: Basophils # (auto) 0.03 K/uL (0-0.2); Basophils % (auto) 0.4 %; Eosinophils # (auto) 0.24 K/uL (0-0.5); Eosinophils % (auto) 3.2 %; Hematocrit (blood only) 33.4 % (42-52); Hemoglobin 11.4 g/dL (14.0-18.0); Immature Granulocytes # (auto) 0.02 K/uL (0.00-0.02); Immature Granulocytes % (auto) 0.3 %; Lymphocytes % (auto) 32.1 %; Mean Corpuscular Hemoglobin 31.7 pg (25-34); Mean Corpuscular Hgb Conc 34.1 g/dL (32-36); Mean Corpuscular Volume 92.8 fL (80-100); Mean Platelet Volume 10.8 fL (7.4-10.4); Monocytes # (auto) 0.83 K/uL (0.11-0.59); Monocytes % (auto) 11.1 %; Neutrophils # (auto) 3.96 K/uL (1.4-6.5); Neutrophils % (auto) 52.9 %; Platelet Count 187 K/uL (130-400); RDW Coefficient of Variation 13.6 % (11.5-14.5); RDW Standard Deviation 46.2 fL (36.4-46.3); White Blood Count 7.48 K/uL (4.8-10.8)
[2019-06-03 08:22] LABS: Calcium 8.8 mg/dl (8.5-10.1); Creatinine Clr Calc Pharmacy 54.1 ml/min; Est GFR (African American) 85.8; Magnesium 2.1 mg/dl (1.8-2.4); Potassium 4.2 mmol/L (3.5-5.1)
[2019-06-03] MEDS: CeleBREX 200 MG CAP PO SCH (08:23)
[2019-06-03] MEDS: ASPIRIN 81 MG ECTAB PO SCH (08:23)
[2019-06-03] MEDS: DICLOFENAC SOD 1% GEL 100 GM TUBE EXT SCH ×2 (08:24→12:50)
[2019-06-03] MEDS: CALCIUM 600MG + VIT D 400 IU TAB PO SCH (08:24)
--- NOTE | 2019-06-03 14:39 | Hospitalist Progress Note ---
Date of Service June 03, 2019 Assessment & Plan (1) Hyponatremia: Patient presented with sodium level of 125, his previous levels were 135 earlier this month, and 138 in April (last month) Etiology is unclear, possibly secondary to very poor oral intake, SIADH, or side effect of SSRI, or combination of these factors Patient was started on Zoloft about 2 weeks ago, will hold for now Received half liter of normal saline in the ED, sodium level on recheck several hours later was 127 Serum osmolality, urine osmolality and urine sodium were ordered Serum osm 271, urine osm 620 and sodium excretion in the urine is 64 TSH was ordered as part of the work-up in the ED, and was normal The cause of hyponatremia seems to be multifactorial We will continue with intravenous normal saline and increase oral intake of sodium Monitor sodium level in the hospital Sodium level is 129 today We will continue with small amount of intravenous fluid low sodium tablet for now He will start with Remeron 15 mg once daily for depression Sodium has been normalized We will advised to more salt in diet and discontinue sodium tablet Sodium level is normal Will discontinue regular sodium tablet Advised to have extra salt in diet (2) Confusion: Likely secondary to metabolic encephalopathy due to hyponatremia Resolved, patient is alert and oriented and able to answer questions without any difficulty Work-up in the ED included head CT which was negative, chest x-ray which was also negative, EKG showed bradycardia and first-degree AV block No evidence of infection and the confusion resolved completely (3) Weight loss: Most likely secondary to poor oral intake BMI 21, which is normal Albumin 2.8 Per patient's son, patient lost about 40 pounds in the past 5 months Patient endorses poor appetite, etiology unclear, possibly secondary to depression Denies having any difficulty with eating/drinking, such as dysphasia or abdominal discomfort Will encourage oral intake, discussed with nursing staff Will order boost 4 times daily We will consult dietitian Has been getting boost (4) Depression: Patient had a several recent stressors, such as move to [facility], and leaving of his longtime girlfriend to [place] He denies any SI/HI, does not have any thoughts of hurting himself He does have a very poor appetite, which can be secondary to above History of mirtazapine use, which was discontinued and switched to Zoloft about 2 weeks ago Given his hyponatremia, and possibility of SSRI being the culprit, we will discontinue Zoloft during this admission No evidence of any anxiety or depression Remeron 15 mg has been started Denies any symptoms of depression Remeron has been working well (5) Dyslipidemia: No current issues Continue home statin (6) Hypertension: Currently patient's blood pressure is well controlled Patient does not take any home medications for BP We will continue to monitor Blood pressure remains controlled (7) Hip pain, right: Secondary to chronic right hip arthritis Takes home NSAIDs, will continue during his hospitalization Pain well controlled at this time, will add Tylenol as needed Already scheduled for an outpatient ortho evaluation Awaiting Ortho evaluation and recommendation Has been getting PT and OT evaluation Likely be discharged tomorrow in a facility He will be evaluated by orthopedic surgeon tomorrow as planned (8) DVT prophylaxis: Lovenox subq Encourage ambulation (9) Discharge planning issues: Currently resides at [facility], will consult PT to see if he has other needs for discharge. Current PCP, Dr. Gonzalez. After discharge patient may follow-up with his PCP or physician at [facility]. Son is willing for him to go to a rehab facility PT and OT have been ordered for possible placement for short-term rehab The son will take him to [facility] at his previous place of residence Subjective 05/29 The patient was seen and examined in telemetry unit He was admitted with one episode of confusion and noted to have hyponatremia His confusion is resolved but hyponatremia persists Complains of weakness but denies any other acute symptoms 05/30 The patient was seen and examined in telemetry unit Complaint history of generalized weakness and depression Denies any acute confusion He has been feeling better since admission 05/31 The patient was seen and examined in telemetry unit He has been feeling a lot better He has been getting PT and OT evaluation for possible placement 06/01 The patient was seen and examined in telemetry unit He is out of bed on a chair without any symptoms He has been feeling a lot better He has been awaiting to be placed 06/02 The patient was seen and examined in telemetry unit He has been feeling a lot better but remains weak Complaint history of pain in the right hip with ambulation Denies any other symptoms 06/03 The patient was seen and examined in telemetry floor He has been feeling a lot better Denies any more confusion Has been getting physical therapy and complaining of more pain in the right We will have Ortho evaluation tomorrow Review of Systems Review of Systems: All systems reviewed and are unremarkable except as noted below Constitutional: + weakness and + weight loss (40 lbs); no fever Ear, Nose, Mouth, Throat: + hearing loss; no pain with swallowing and no neck lump Patient uses hearing aids Gastrointestinal: + constipation; no abdominal pain, no nausea, no hematemesis, no pain with swallowing, no dysphagia and no fecal incontinence Genitourinary: + urinary hesitancy Musculoskeletal: + joint pain (R hip) and + limited range of motion (of R hip d/t pain); no deformity and no swelling Integumentary: + dry skin; no erythema, no pruritus and no yellowing of the skin Neurologic: + unsteadiness, + falls (hx of fall ) and + generalized weakness; no tingling, no numbness, no dizziness, no syncope, no abnormal speech and no confusion Psychiatric: + anhedonia; no suicidal ideation, no hallucinations and no visual hallucinations Hematologic / Lymphatic: + weight loss (in the setting of poor oral intake) Physical Exam Physical Exam: No apparent distress at rest Constitutional: + ill appearing and + thin; no acute distress Eyes: PERRL, conjunctivae normal, anicteric sclerae + anicteric sclerae and EOM intact bilaterally ENMT: external ear and nose normal, oropharynx normal Ears: + hearing impairment (uses hearing aids) Mouth: + lip abnormality (dry), + oral mucosal abnormality (dry) and + dentition abnormality (poor dentition) Neck: trachea midline, no thyromegaly Respiratory: normal respiratory effort, lungs clear to auscultation normal respiratory effort; does not use accessory muscles and no cough Auscultation: lungs clear to auscultation bilaterally; no crackles, no rhonchi and no wheezes Cardiovascular: Rate/Rhythm: regular rate and regular rhythm Heart Sounds: normal S1 and normal S2; no click and no gallop Palpation: no thrill Vessels: no JVD Extremities: no edema Chest (Breasts): Chest: normal inspection of chest Gastrointestinal (Abdomen): Inspection/Auscultation: abdomen normal to inspection and normal bowel sounds; abdomen not distended Percussion/Palpation: abdomen soft; abdomen nontender, no guarding and abdomen not rigid Musculoskeletal: Extremities: extremities normal to inspection and + limited ROM of extremities (R hip ROM limited); no cyanosis and no petechiae Except pain in the right hip with movement no other acute arthritis Skin: no rashes, warm and dry no rashes and no jaundice Neurologic: PERRL, EOMI, accommodation nl, no face palsy, no dysarthria moves all extremities; no focal motor deficits Speech / Cognition: normal speech Motor/Sensory: no tremor Psychiatric: Orientation: alert and oriented x 3 Speech: normal rate/rhythm/volume of speech Affect: + depressed affect Lymphatic: no cervical or axillary lymphadenopathy no lymphedema, no cervical lymphadenopathy and no subclavicular lymphadenopathy Results & Data Vital Signs (Past 12 Hours) Vital Signs Temp Pulse Pulse Resp BP BP Pulse Ox 06/03/19 11:52 36.8 C 79 18 121/68 98 06/03/19 08:00 66 06/03/19 07:13 36.7 C 68 18 130/69 96 06/03/19 07:00 36.7 C 69 18 125/70 96 06/03/19 03:08 36.5 C 69 17 129/70 94 Laboratory Results Short CBC 06/03/19 Range/Units 07:08 WBC 7.48 (4.8-10.8) K/uL Hgb 11.4 L (14.0-18.0) g/dL Hct 33.4 L (42-52) % Plt Count 187 (130-400) K/uL BMP 06/03/19 07:08 Sodium 137 Potassium 4.2 Chloride 104 Carbon Dioxide 28 BUN 33 H Creatinine 0.92 Glucose 82 Calcium 8.8 Medications Administered Current Inpatient Medications Acetaminophen (Tylenol) 650 mg PO Q4H PRN PRN Reason: Pain or Fever Stop: 06/27/19 14:32 Last Admin: 06/02/19 16:42 Dose: 650 mg Documented by: Al Hydrox/Mg Hydrox/Simethicone (Maalox) 15 ml PO Q4H PRN PRN Reason: Dyspepsia Stop: 06/27/19 14:32 Aspirin (Ecotrin Ectab) 81 mg PO QA [facility] Stop: 06/28/19 08:59 Last Admin: 06/03/19 08:23 Dose: 81 mg Documented by: Atorvastatin Calcium (Lipitor) 20 mg PO HS [facility] Stop: 06/27/19 20:59 Last Admin: 06/02/19 20:59 Dose: 20 mg Documented by: Celecoxib (Celebrex) 200 mg PO DAILY [facility] Stop: 06/28/19 08:59 Last Admin: 06/03/19 08:23 Dose: 200 mg Documented by: Diclofenac Sodium (Voltaren 1% Top) 2 gm EXT QID [facility] Stop: 06/27/19 16:59 Last Admin: 06/03/19 08:24 Dose: Not Given Documented by: Enoxaparin Sodium (Lovenox) 40 mg SQ HS [facility] Stop: 06/27/19 20:59 Last Admin: 06/02/19 20:59 Dose: 40 mg Documented by: Mirtazapine (Remeron) 15 mg PO HS [facility] Stop: 06/29/19 20:59 Last Admin: 06/02/19 20:59 Dose: 15 mg Documented by: Multivitamins/Minerals (Caltrate Plus) 1 tab PO QAM [facility] Stop: 06/28/19 08:59 Last Admin: 06/03/19 08:24 Dose: 1 tab Documented by: Polyethylene Glycol (Miralax Powder Packet) 17 gm PO DAILY PRN PRN Reason: Constipation Stop: 06/27/19 20:01 Last Admin: 05/28/19 20:11 Dose: 17 gm Documented by: (1) Depression Depression Type: unspecified Qualified Code(s): F32.9 - Major depressive disorder, single episode, unspecified (2) Hypertension Hypertension type: unspecified Qualified Code(s): I10 - Essential (primary) hypertension
--- NOTE | 2019-06-04 08:10 | Discharge Summary ---
Date of Service June 04, 2019 Admission HPI Per Admitting Provider 88-year-old male with history of hypertension, bilateral sensorineural hearing loss, right hip arthritis who presents from [facility], with confusion, most likely secondary to hyponatremia. In the ED patient was found to have sodium level of 125, head CT was negative for any acute changes, EKG showed bradycardia in 50s, and first-degree AV block. Patient presents with his son Donta who also provides history. They both state that patient has not been eating or drinking for some time and has been losing weight. Pt denies having any confusion like this in the past, he also has not been admitted to hospital before. He says that he woke up in the morning and he was unsure what he was doing, however denied any dizziness, chest pain,headache,nausea, abdominal pain, weakness, numbness, tingling. The staff at [facility] became aware and decided to bring patient to the hospital for further evaluation and treatment. Per son Donta, patient has been feeling more sad/depressed lately, as he moved to the [facility] 2 weeks ago (on May 17). He misses living in his home and in addition his girlfriend also moved to [place]. The patient and his girlfriend were together for about past 10 years and patient's son and the girlfriend do not get along which worries the patient. Per Donta, patient became more worried and anxious about "all the things that need to be taken care of" wh ile he is at [facility]. He saw his primary care physician, Dr. Gonzalez on May 10, and at that time Zoloft was prescribed. Donta also mentions that patient has been taking mirtazapine for a long time in the past and mirtazapine was stopped. Donta's other concern is the patient's right hip pain due to arthritis, weight loss which he states is about 40 to 50 pounds in the past 5 months, and very poor appetite. Patient denies having any difficulty with eating or drinking, denies any pain with swallowing or abdominal discomfort. He states that he "just does not have any appetite". He also says that he has been having troubles with constipation and has been using stool softeners in the past couple of months. Internal medicine hospitalist team was called for admission for hyponatremia evaluation and treatment. Patient received half a liter of normal saline in the ED. On admission, patient's mental status back at baseline, he is alert and oriented and able to answer all questions without difficulty. Admission Exam Per Admitting Provider Constitutional: + thin; no acute distress elderly male, appears the stated age, in no acute distress Eyes: PERRL, conjunctivae normal, anicteric sclerae + anicteric sclerae and EOM intact bilaterally ENMT: external ear and nose normal, oropharynx normal Ears: + hearing impairment (uses hearing aids) Mouth: + lip abnormality (dry), + oral mucosal abnormality (dry) and + dentition abnormality (poor dentition) Neck: supple, no cervical lymphadenopathy Respiratory: normal respiratory effort, lungs clear to auscultation does not use accessory muscles and no cough Auscultation: no crackles, no rhonchi and no wheezes Cardiovascular: RRR, no murmur, no edema Heart Sounds: normal S1 and normal S2; no click and no gallop Palpation: no thrill Vessels: no JVD Extremities: no edema Chest (Breasts): Chest: normal inspection of chest Gastrointestinal (Abdomen): Inspection/Auscultation: abdomen normal to inspection and normal bowel sounds; abdomen not distended Percussion/Palpation: abdomen soft; abdomen nontender, no guarding and abdomen not rigid Musculoskeletal: Head/Neck/Chest: normocephalic, head atraumatic and neck supple Extremities: extremities normal to inspection and + limited ROM of extremities (R hip ROM limited); no cyanosis and no petechiae Skin: no rashes, warm and dry no rashes and no jaundice Neurologic: PERRL, EOMI, accommodation nl, no face palsy, no dysarthria moves all extremities Speech / Cognition: normal speech Motor/Sensory: no tremor no sensory loss noted Psychiatric: Orientation: alert and oriented x 3 Speech: normal rate/rhythm/volume of speech Affect: + depressed affect Lymphatic: no lymphedema, no cervical lymphadenopathy and no subclavicular lymphadenopathy Principal Diagnosis Hyponatremia-normalized, acute confusion-resolved, depression, hypertension, right hip osteoarthritis Discharge Exam Constitutional + ill appearing and + thin; no acute distress Eyes PERRL, conjunctivae normal, anicteric sclerae + anicteric sclerae and EOM intact bilaterally ENMT external ear and nose normal, oropharynx normal Ears: + hearing impairment (uses hearing aids) Mouth: + lip abnormality (dry), + oral mucosal abnormality (dry) and + dentition abnormality (poor dentition) Neck trachea midline, no thyromegaly Respiratory normal respiratory effort, lungs clear to auscultation normal respiratory effort; does not use accessory muscles and no cough Auscultation: lungs clear to auscultation bilaterally; no crackles, no rhonchi and no wheezes Cardiovascular Rate/Rhythm: regular rate and regular rhythm Heart Sounds: normal S1 and normal S2; no click and no gallop Palpation: no thrill Vessels: no JVD Extremities: no edema Chest (Breasts) Chest: normal inspection of chest Gastrointestinal (Abdomen) Inspection/Auscultation: abdomen normal to inspection and normal bowel sounds; abdomen not distended Percussion/Palpation: abdomen soft; abdomen nontender, no guarding and abdomen not rigid Musculoskeletal Extremities: extremities normal to inspection and + limited ROM of extremities (R hip ROM limited); no cyanosis and no petechiae Skin no rashes, warm and dry no rashes and no jaundice Neurologic PERRL, EOMI, accommodation nl, no face palsy, no dysarthria moves all extremities; no focal motor deficits Speech / Cognition: normal speech Motor/Sensory: no tremor Psychiatric Orientation: alert and oriented x 3 Speech: normal rate/rhythm/volume of speech Affect: + depressed affect Lymphatic no cervical or axillary lymphadenopathy no lymphedema, no cervical lymphadenopathy and no subclavicular lymphadenopathy Discharge Data Allergies Allergy/AdvReac Type Severity Reaction Status Date / Time No Known Allergies Allergy Unverified 05/28/19 08:21 Consultations 05/28/19 09:52 ED Decision to Admit Stat 05/28/19 14:33 Consult Case Management - Discharge Planning Routine Ordered Studies 05/28/19 09:19 CT head/brain wo con Stat Hospital Course (1) Hyponatremia: Patient presented with sodium level of 125, his previous levels were 135 earlier this month, and 138 in April (last month) Etiology is unclear, possibly secondary to very poor oral intake, SIADH, or side effect of SSRI, or combination of these factors Patient was started on Zoloft about 2 weeks ago, will hold for now Received half liter of normal saline in the ED, sodium level on recheck several hours later was 127 Serum osmolality, urine osmolality and urine sodium were ordered Serum osm 271, urine osm 620 and sodium excretion in the urine is 64 TSH was ordered as part of the work-up in the ED, and was normal The cause of hyponatremia seems to be multifactorial We will continue with intravenous normal saline and increase oral intake of sodium Monitor sodium level in the hospital Sodium level is 129 today We will continue with small amount of intravenous fluid low sodium tablet for now He will start with Remeron 15 mg once daily for depression Sodium has been normalized We will advised to more salt in diet and discontinue sodium tablet Sodium level is normal Will discontinue regular sodium tablet Advised to have extra salt in diet (2) Confusion: Likely secondary to metabolic encephalopathy due to hyponatremia Resolved, patient is alert and oriented and able to answer questions without any difficulty Work-up in the ED included head CT which was negative, chest x-ray which was also negative, EKG showed bradycardia and first-degree AV block No evidence of infection and the confusion resolved completely (3) Weight loss: Most likely secondary to poor oral intake BMI 21, which is normal Albumin 2.8 Per patient's son, patient lost about 40 pounds in the past 5 months Patient endorses poor appetite, etiology unclear, possibly secondary to depression Denies having any difficulty with eating/drinking, such as dysphasia or abdominal discomfort Will encourage oral intake, discussed with nursing staff Will order boost 4 times daily We will consult dietitian Has been getting boost (4) Depression: Patient had a several recent stressors, such as move to [facility], and leaving of his longtime girlfriend to [place] He denies any SI/HI, does not have any thoughts of hurting himself He does have a very poor appetite, which can be secondary to above History of mirtazapine use, which was discontinued and switched to Zoloft about 2 weeks ago Given his hyponatremia, and possibility of SSRI being the culprit, we will discontinue Zoloft during this admission No evidence of any anxiety or depression Remeron 15 mg has been started Denies any symptoms of depression Remeron has been working well (5) Dyslipidemia: No current issues Continue home statin (6) Hypertension: Currently patient's blood pressure is well controlled Patient does not take any home medications for BP We will continue to monitor Blood pressure remains controlled (7) Hip pain, right: Secondary to chronic right hip arthritis Takes home NSAIDs, will continue during his hospitalization Pain well controlled at this time, will add Tylenol as needed Already scheduled for an outpatient ortho evaluation Awaiting Ortho evaluation and recommendation Has been getting PT and OT evaluation Likely be discharged tomorrow in a facility He will be evaluated by orthopedic surgeon tomorrow as planned (8) DVT prophylaxis: Lovenox subq Encourage ambulation (9) Discharge planning issues: Currently resides at [facility], will consult PT to see if he has other needs for discharge. Current PCP, Dr. Gonzalez. After discharge patient may follow-up with his PCP or physician at [facility] [facility]. Son is willing for him to go to a rehab facility PT and OT have been ordered for possible placement for short-term rehab The son will take him to [place] at his previous place of residence Total Time Total Time Spent Total Time Spent (In Minutes): 35 minutes Total Time Includes: Examination of the Patient, Discharge Planning, Medication Reconciliation and Communication With Other Providers Discharge Plan Discharge Items Patient Disposition: Personal Skilled Nursing Reason For Visit: ILLNESS Discharge Diagnosis: Hyponatremia-normalized, acute confusion-resolved, depression, hypertension, right hip osteoarthritis Condition on Discharge: Good Activity: Resume your previous activity Non-emergency contact: Primary Care Provider Call non-emergency contact if: you have any medication questions and your symptoms worsen Follow-up/Referrals: Dominguez Gonzalez MD [Primary Care Provider] - 06/04/19 1:45 pm (Keep appointment with orthopedic surgeon.) Diet: Regular Fluids: 1500ml (6 cups) Addtl Attending Provider Instructions: Please take precaution to avoid falls. You can have extra salt (1 or 2 shakes) with your meals Sertraline has been discontinued due to side effects of hypo-natremia Remeron has been restarted and it has been working well Stand-Alone Forms: My [facility] Skilled Items Patient informed of condition?: Yes DNR: Yes Discharge Level of Care: Other Communicable Disease: No Discharge Prognosis: Stable Lines: None Urinary Catheter: No Medications and DC Order Prescriptions: New mirtazapine 15 mg Tablet 15 mg PO HS 30 Days Qty: 30 RF: 0 Continued atorvastatin 20 mg Tablet 20 mg PO HS RF: 0 celecoxib 200 mg Capsule 200 mg PO DAILY RF: 0 diclofenac sodium 1 % Gel 2 g TOPICAL DIRECTED RF: 0 multivitamin Tablet 1 tab PO QAM RF: 0 Calcium 600 + D(3) 600 mg calcium- 200 unit Capsule 1 cap PO QAM RF: 0 Glucosamine Chondroitin 550-30-1 mg Capsule 1 cap PO QAM RF: 0 aspirin 81 mg Tablet,Delayed Release (Dr/Ec) 81 mg PO QAM RF: 0 Discontinued sertraline 50 mg tablet 50 mg PO DAILY RF: 0 Discharge Orders: Discharge Order (Routine); Ordered 06/03/19 Ordered By: Chris Thompson/Other Patient Handouts: Mirtazapine Oral tablet Admission Data Admit Date/Time: 05/28/19 12:56 Attending Provider: Chris Aragon Admit Provider: Olman Pimentel Primary Care Provider: Dominguez Gonzalez Other Providers: Olman Pimentel ; John Baca ; [place] ; Jeanmarie Bear ; Zakiya Bright Thomas J ; Millie Quintana ; Suleman Elizabeth ; Yan Veras ; Brad Edwards ; Yan Abbott Andrew J. ; Brad De Jesus ; Bebeto Carney ; Fabio Pastrana ; Gurinedr Hazel ; Wesley Up ; Marshal Darden ; Millie Chaney Casey R ; Dejuan Weir ; Dominguez Roth ; [facility] Other Interventions: Discharge Summary Assessment (RN) Last Done: 06/03/19 15:56 DC Date/Time DO NOT enter until pt leaves facility: 06/03/19 16:30
== END 2019-06-03 16:30 | disposition home or self-care (01) | DRG 640 ==
LOC: ED 07:53 → 2S 12:56 → SUATTDRO 12:56 → 2S 13:36

== ENCOUNTER 2019-12-29 07:33 | Inpatient (IN) ==
[2019-12-29] MEDS ORDERED: PIPERACILL/TAZOBAC CONSULT ACTIVE PRN ×2 (07:59→14:52)
[2019-12-29] MEDS ORDERED: PIPERACILLIN/TAZOBACTAM 4.5 GM/120 ML BAG IV ONE (07:59)
[2019-12-29] MEDS ORDERED: ALBUT/IPRATROP 3MG/0.5MG NEB 3 ML VIAL NEB ONE (08:00)
--- NOTE | 2019-12-29 08:06 | Emergency Department Note ---
Impression & Plan Hypoxemia requiring supplemental oxygen, SOB (shortness of breath), Cough ED Provider Note NAME: TIFFANIE BEARD AGE: 89 SEX: M : 1930 ARRIVES VIA: Ambulance INFORMANT: Patient, ED PROVIDER(S): Jose David Read MD Chief Complaint: Shortness of breath HPI: Patient does present from [place] with concern for shortness of breath. He states he has had 3 days of symptoms. Patient has had productive cough that is clear sputum. Former smoker 50 years ago. The patient does have some lower extremity edema which he states is chronic. Nothing really exacerbates or makes his symptoms any better but he was put on 4 L nasal cannula for EMS. No meds given in route. Patient denies any chest pains. Patient is DNR/DNI. ROS: See HPI for pertinent positives and negatives. A total of 10 systems were reviewed and otherwise negative. Past medical history: See below Surgical history: See below Social history: See below Physical Exam: GENERAL: No apparent distress, nasal cannula and mask in place. Audible gurgles heard. EYE EXAM: Normal conjunctiva. PERRL, no anisocoria and EOM's grossly intact w/o pain. NECK: Supple, no nuchal rigidity, no adenopathy, non-tender. No signs of meningismus. LUNGS: Gurgling breath sounds noted. Normal chest wall mechanics. HEART: NSR, no MRG. ABDOMEN: Abdomen soft, non-tender, normo-active bowel sounds, no masses, no rebound or guarding. BACK: No CVA TTP. SKIN: No rashes and no bruising. UPPER EXTREMITIES: Upper extremities are grossly normal. LOWER EXTREMITIES: Grossly normal, trace pretibial edema bilaterally with compression stockings. Negative Homans sign bilaterally. NEURO EXAM: A&O x3, cranial nerves II-XII grossly intact, normal speech, moves all 4 extremities on command w/o issue. Differential diagnoses: Reactive airway disease, pneumonia, pneumothorax, COPD, CHF, infections, cardiac ischemia, pulmonary embolism, musculoskeletal, gastrointestinal, as well as other pathologies. Course: Patient was seen and evaluated the bedside. Full history physical exam was performed. EKG: [] Imaging Studies: Radiology results as stated below per my review in the radiologist's interpretation: XR chest 1V portable HISTORY: 89 years-old Male Dyspnea acute shortness of breath COMPARISON: CT abdomen and pelvis 06/13/2019, chest radiograph 05/28/2019 TECHNIQUE: Portable AP view of the chest FINDINGS: Cardiomediastinal and hilar silhouettes are within normal limits. Mild left hemidiaphragmatic elevation. Mild blunting of the costophrenic angles appears unchanged. Mild ill-defined left lung base opacities. No pneumothorax or overt pulmonary edema. Degenerative changes of the shoulders and spine. IMPRESSION: 1. Minimal left lung base opacities suggest probable atelectasis. Pneumonitis considered less likely. 2. Unchanged mild left hemidiaphragmatic elevation. ACT 112: Negative or not required by law. The above report was generated using voice recognition software. It may contain grammatical, syntax or spelling errors. Electronically signed by: David Richardson M.D. 12/29/2019 8:45 AM Dictated: 12/29/19843 Transcribed: 12/29/19843 Cardiac monitoring: An order was placed for continuous cardiac monitoring. The monitor shows a rate of 82 with irregularly irregular rhythm. MDM: He was seen due to concern for shortness of breath. Patient reportedly was 85% on room air. 3 days of symptoms. Blood work was obtained. Zosyn. Temperature 37.3 upon presentation. Patient is unsure as to whether or not there are covered contacts at his facility. Patient denies any chest pains. Chest x-ray and EKG blood work was obtained. Patient is DNR/DNI. Patient has a white count of 13. Left shift noted. Patient's VBG does not show any acute hypercarbia that is causing acidosis with a pH of 736. Coags are nor mal. Hyponatremia noted. Troponin is not detectable. BNP is not elevated for patient's age. Patient did receive Zosyn. Urinalysis pending. I did speak with the on-call hospitalist service who agreed to further evaluate or treat the patient. The patient does have an oxygen requirement and the possibility of aspiration. The patient has done well with his breathing treatment. I did speak with Dr. Sung, family medicine practice resident under the supervision of Dr. Paredes, [facility] hospitalist service. 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) Surgical History Status post left cataract extraction (Chronic) Family History Mother Cancer Liver (unknown primary) Father Cancer Spine (unknown primary) Heart disease Brother Cancer intestinal Brother Heart disease Brother Heart disease Other Family history non-contributory Social History Preferred Language: Lithuanian Communication Ability: Effective Rotary Soil Stabilizer Required: No Beliefs That Will Affect Care: None marital status details: but lived w/ GF for past 10 yrs who recently moved to [place] Current Living Situation: Personal Care Facility Current Living Situation Comment: [facility] Feels Safe at Home: Yes Smoking Status: Former smoker Hx Alcohol Use: No Hx Substance Use: No Allergies Allergies Allergy/AdvReac Type Severity Reaction Status Date / Time No Known Allergies Allergy Unverified 12/29/19 08:04 Home Meds Home Medications Medication Instructions Recorded Confirmed Calcium 600 + D(3) 1 cap PO QAM 05/02/19 12/29/19 aspirin 81 mg PO QAM 05/02/19 12/29/19 atorvastatin 20 mg PO HS 05/02/19 12/29/19 diclofenac sodium 2 g TOPICAL DIRECTED PRN 05/02/19 12/29/19 multivitamin 1 tab PO QAM 05/02/19 12/29/19 brimonidine-timolol [Combigan] 1 drp OPB BID 12/29/19 12/29/19 carbidopa-levodopa 1 tab PO TID 12/29/19 12/29/19 docusate sodium 100 mg PO BID 12/29/19 12/29/19 lidocaine 1 patch TOPICAL DAILY 12/29/19 12/29/19 mirtazapine 7.5 mg PO HS 12/29/19 12/29/19 polyethylene glycol 3350 17 g PO 3XWK 12/29/19 12/29/19 spironolactone 12.5 mg PO DAILY 12/29/19 12/29/19 vitamin E 100 unit PO DAILY 12/29/19 12/29/19 Results & Data (ED) Vital Signs Vital Signs - 24 hr 12/29/19 07:42 12/29/19 07:46 12/29/19 08:00 Temperature Temperature Source Pulse Rate 94 H 94 H 82 Pulse Rate [Apical] Pulse Rate from SpO2 Sensor 69 69 62 Pulse Rhythm Pulse Strength Respiratory Rate 29 H 23 24 Respiratory Effort / Characteristics Respiratory Depth Respiratory Pattern Blood Pressure 130/67 129/65 Blood Pressure Mean 86 78 Pulse Oximetry 99 99 99 Oxygen Delivery Method Nasal Cannula Nasal Cannula Nasal Cannula Oxygen Flow Rate 3 3 3 Sepsis Recent Fever Within 48 Hours Sepsis Action Taken by Nursing 12/29/19 08:01 12/29/19 08:13 12/29/19 08:30 Temperature 37.3 C Temperature Source Oral Pulse Rate 91 H 76 78 Pulse Rate [Apical] 79 Pulse Rate from SpO2 Sensor 69 62 Pulse Rhythm Regular Pulse Strength Normal Respiratory Rate 24 20 22 Respiratory Effort / Characteristics Non-Labored Spontaneous Spontaneous Respiratory Depth Normal Respiratory Pattern Regular Blood Pressure 129/65 126/59 L Blood Pressure Mean 86 73 Pulse Oximetry 99 85 L 100 Oxygen Delivery Method Nasal Cannula Nasal Cannula Nasal Cannula Oxygen Flow Rate 3 3 3 Sepsis Recent Fever Within 48 Hours No Sepsis Action Taken by Nursing No Action Required 12/29/19 08:31 12/29/19 09:00 12/29/19 09:12 Temperature Temperature Source Pulse Rate 77 76 Pulse Rate [Apical] Pulse Rate from SpO2 Sensor 70 76 Pulse Rhythm Pulse Strength Respiratory Rate 22 17 Respiratory Effort / Characteristics Respiratory Depth Respiratory Pattern Blood Pressure 130/70 Blood Pressure Mean 80 Pulse Oximetry 100 100 Oxygen Delivery Method Nebulizer Nebulizer Nasal Cannula Oxygen Flow Rate Sepsis Recent Fever Within 48 Hours Sepsis Action Taken by Nursing 12/29/19 09:30 12/29/19 09:31 12/29/19 10:00 Temperature Temperature Source Pulse Rate 76 77 79 Pulse Rate [Apical] Pulse Rate from SpO2 Sensor 74 75 79 Pulse Rhythm Pulse Strength Respiratory Rate 19 19 18 Respiratory Effort / Characteristics Respiratory Depth Respiratory Pattern Blood Pressure 107/51 L 108/54 L Blood Pressure Mean 62 67 Pulse Oximetry 100 100 99 Oxygen Delivery Method Nebulizer Nebulizer Nasal Cannula Oxygen Flow Rate 3 Sepsis Recent Fever Within 48 Hours Sepsis Action Taken by Nursing 12/29/19 10:01 12/29/19 10:30 12/29/19 10:31 Temperature Temperature Source Pulse Rate 81 83 84 Pulse Rate [Apical] Pulse Rate from SpO2 Sensor 81 83 84 Pulse Rhythm Pulse Strength Respiratory Rate 17 19 16 Respiratory Effort / Characteristics Respiratory Depth Respiratory Pattern Blood Pressure 117/53 L Blood Pressure Mean 67 Pulse Oximetry 100 97 98 Oxygen Delivery Method Nasal Cannula Oxygen Flow Rate 3 Sepsis Recent Fever Within 48 Hours Sepsis Action Taken by Nursing 12/29/19 11:00 12/29/19 11:01 12/29/19 11:30 Temperature Temperature Source Pulse Rate 81 81 82 Pulse Rate [Apical] Pulse Rate from SpO2 Sensor 81 81 82 Pulse Rhythm Pulse Strength Respiratory Rate 15 14 16 Respiratory Effort / Characteristics Respiratory Depth Respiratory Pattern Blood Pressure 109/52 L 120/58 L Blood Pressure Mean 65 69 Pulse Oximetry 97 97 98 Oxygen Delivery Method Oxygen Flow Rate Sepsis Recent Fever Within 48 Hours Sepsis Action Taken by Nursing 12/29/19 11:31 12/29/19 12:00 12/29/19 12:01 Temperature Temperature Source Pulse Rate 82 75 76 Pulse Rate [Apical] Pulse Rate from SpO2 Sensor 82 75 76 Pulse Rhythm Pulse Strength Respiratory Rate 16 16 14 Respiratory Effort / Characteristics Respiratory Depth Respiratory Pattern Blood Pressure 113/60 Blood Pressure Mean 78 Pulse Oximetry 98 100 99 Oxygen Delivery Method Oxygen Flow Rate Sepsis Recent Fever Within 48 Hours Sepsis Action Taken by Nursing 12/29/19 12:30 12/29/19 12:31 Temperature Temperature Source Pulse Rate 78 77 Pulse Rate [Apical] Pulse Rate from SpO2 Sensor 78 78 Pulse Rhythm Pulse Strength Respiratory Rate 15 19 Respiratory Effort / Characteristics Respiratory Depth Respiratory Pattern Blood Pressure 118/58 L Blood Pressure Mean 74 Pulse Oximetry 98 97 Oxygen Delivery Method Oxygen Flow Rate Sepsis Recent Fever Within 48 Hours Sepsis Action Taken by [facility] Medications Current Medication List: was personally reviewed by me Laboratory Data Attestation: I reviewed the patient's lab results. Result diagrams: 12/29/19 08:49 12/29/19 08:49 Lab Results 12/29/19 12/29/19 12/29/19 Range/Units 08:49 08:49 08:49 WBC 13.43 H (4.8-10.8) K/uL RBC 3.95 L (4.7-6.1) M/uL Hgb 12.6 L (14.0-18.0) g/dL Hct 37.4 L (42-52) % MCV 94.7 (80-100) fL MCH 31.9 (25-34) pg MCHC 33.7 (32-36) g/dL RDW Std Deviation 47.7 H (36.4-46.3) fL RDW Coeff of Victor Hugo 13.7 (11.5-14.5) % Plt Count 140 (130-400) K/uL MPV 11.5 H (7.4-10.4) fL Immature Gran % (Auto) 0.2 % Neut % (Auto) 68.5 % Lymph % (Auto) 18.2 % [place] % (Auto) 10.5 % Eos % (Auto) 2.5 % Baso % (Auto) 0.1 % Immature Gran # (Auto) 0.03 H (0.00-0.02) K/uL Neut # (Auto) 9.19 H (1.4-6.5) K/uL Lymph # (Auto) 2.45 (1.2-3.4) K/uL [place] # (Auto) 1.41 H (0.11-0.59) K/uL Eos # (Auto) 0.33 (0-0.5) K/uL Baso # (Auto) 0.02 (0-0.2) K/uL PT 11.7 (9.0-12.0) Seconds INR 1.1 (0.9-1.1) APTT 26.2 (21.0-31.0) Seconds PTT Ratio 0.9 VBG pH (7.36-7.41) VBG pCO2 (38-50) mmHg VBG pO2 mmHg VBG HCO3 mmol/L VBG O2 Saturation % VBG Base Excess mEq/L Barometric Pressure mm/Hg Sodium 130 L (136-145) mmol/L Potassium 4.0 (3.5-5.1) mmol/L Chloride 96 L (98-107) mmol/L Carbon Dioxide 29 (21-32) mmol/L Anion Gap 5.0 (3-11) BUN 18 (7-18) mg/dl Creatinine 0.89 (0.6-1.4) mg/dl Est Cr Clr Drug Dosing 58.2 ml/min Est GFR ( Amer) 87.9 Est GFR (Non-Af Amer) 75.8 BUN/Creatinine Ratio 20.1 H (10-20) Glucose 99 (70-99) mg/dl Lactate (0.4-2.0) mmol/L Calcium 8.9 (8.5-10.1) mg/dl Total Bilirubin 0.8 (0.2-1) mg/dl AST 31 (15-37) U/L ALT 29 (12-78) U/L Alkaline Phosphatase 102 (45-117) U/L Troponin I < 0.015 (0-0.045) ng/ml NT-Pro-B Natriuret Pep 1618 (0-1800) pg/ml Total Protein 7.4 (6.4-8.2) gm/dl Albumin 2.9 L (3.4-5.0) gm/dl Globulin 4.5 H (2.5-4.0) gm/dl Albumin/Globulin Ratio 0.6 L (0.9-2) Urine Color Urine Appearance (Clear) Urine pH (4.5-7.5) Ur Specific [place] (1.000-1.030) Urine Protein (Negative) Urine Glucose (UA) (Negative) Urine Ketones (Negative) Urine Blood (Negative) Urine Nitrite (Negative) Urine Bilirubin (Negative) Urine Urobilinogen (Negative) Ur Leukocyte Esterase (Negative) Urine WBC (Auto) (0-5) /hpf Urine RBC (Auto) (0-4) /hpf U Hyaline Cast (Auto) (0-5) /lpf U Epithel Cells (Auto) (0-5) /lpf Urine Bacteria (Auto) (Negative) Nasal Screen MRSA (PCR) (Negative) 12/29/19 12/29/19 12/29/19 Range/Units 08:49 08:56 Unknown WBC (4.8-10.8) K/uL RBC (4.7-6.1) M/uL Hgb (14.0-18.0) g/dL Hct (42-52) % MCV (80-100) fL MCH (25-34) pg MCHC (32-36) g/dL RDW Std Deviation (36.4-46.3) fL RDW Coeff of Victor Hugo (11.5-14.5) % Plt Count (130-400) K/uL MPV (7.4-10.4) fL Immature Gran % (Auto) % Neut % (Auto) % Lymph % (Auto) % [place] % (Auto) % Eos % (Auto) % Baso % (Auto) % Immature Gran # (Auto) (0.00-0.02) K/uL Neut # (Auto) (1.4-6.5) K/uL Lymph # (Auto) (1.2-3.4) K/uL [place] # (Auto) (0.11-0.59) K/uL Eos # (Auto) (0-0.5) K/uL Baso # (Auto) (0-0.2) K/uL PT (9.0-12.0) Seconds INR (0.9-1.1) APTT (21.0-31.0) Seconds PTT Ratio VBG pH 7.36 (7.36-7.41) VBG pCO2 53 H (38-50) mmHg VBG pO2 25 mmHg VBG HCO3 30 mmol/L VBG O2 Saturation < 60.0 % VBG Base Excess 3.2 mEq/L Barometric Pressure 736.7 mm/Hg Sodium (136-145) mmol/L Potassium (3.5-5.1) mmol/L Chloride (98-107) mmol/L Carbon Dioxide (21-32) mmol/L Anion Gap (3-11) BUN (7-18) mg/dl Creatinine (0.6-1.4) mg/dl Est Cr Clr Drug Dosing ml/min Est GFR ( Amer) Est GFR (Non-Af Amer) BUN/Creatinine Ratio (10-20) Glucose (70-99) mg/dl Lactate 0.8 (0.4-2.0) mmol/L Calcium (8.5-10.1) mg/dl Total Bilirubin (0.2-1) mg/dl AST (15-37) U/L ALT (12-78) U/L Alkaline Phosphatase (45-117) U/L Troponin I (0-0.045) ng/ml NT-Pro-B Natriuret Pep (0-1800) pg/ml Total Protein (6.4-8.2) gm/dl Albumin (3.4-5.0) gm/dl Globulin (2.5-4.0) gm/dl Albumin/Globulin Ratio (0.9-2) Urine Color Urine Appearance (Clear) Urine pH (4.5-7.5) Ur Specific [place] (1.000-1.030) Urine Protein (Negative) Urine Glucose (UA) (Negative) Urine Ketones (Negative) Urine Blood (Negative) Urine Nitrite (Negative) Urine Bilirubin (Negative) Urine Urobilinogen (Negative) Ur Leukocyte Esterase (Negative) Urine WBC (Auto) (0-5) /hpf Urine RBC (Auto) (0-4) /hpf U Hyaline Cast (Auto) (0-5) /lpf U Epithel Cells (Auto) (0-5) /lpf Urine Bacteria (Auto) (Negative) Nasal Screen MRSA (PCR) Positive A (Negative) 12/29/19 Range/Units Unknown WBC (4.8-10.8) K/uL RBC (4.7-6.1) M/uL Hgb (14.0-18.0) g/dL Hct (42-52) % MCV (80-100) fL MCH (25-34) pg MCHC (32-36) g/dL RDW Std Deviation (36.4-46.3) fL RDW Coeff of Victor Hugo (11.5-14.5) % Plt Count (130-400) K/uL MPV (7.4-10.4) fL Immature Gran % (Auto) % Neut % (Auto) % Lymph % (Auto) % [place] % (Auto) % Eos % (Auto) % Baso % (Auto) % Immature Gran # (Auto) (0.00-0.02) K/uL Neut # (Auto) (1.4-6.5) K/uL Lymph # (Auto) (1.2-3.4) K/uL [place] # (Auto) (0.11-0.59) K/uL Eos # (Auto) (0-0.5) K/uL Baso # (Auto) (0-0.2) K/uL PT (9.0-12.0) Seconds INR (0.9-1.1) APTT (21.0-31.0) Seconds PTT Ratio VBG pH (7.36-7.41) VBG pCO2 (38-50) mmHg VBG pO2 mmHg VBG HCO3 mmol/L VBG O2 Saturation % VBG Base Excess mEq/L Barometric Pressure mm/Hg Sodium (136-145) mmol/L Potassium (3.5-5.1) mmol/L Chloride (98-107) mmol/L Carbon Dioxide (21-32) mmol/L Anion Gap (3-11) BUN (7-18) mg/dl Creatinine (0.6-1.4) mg/dl Est Cr Clr Drug Dosing ml/min Est GFR ( Amer) Est GFR (Non-Af Amer) BUN/Creatinine Ratio (10-20) Glucose (70-99) mg/dl Lactate (0.4-2.0) mmol/L Calcium (8.5-10.1) mg/dl Total Bilirubin (0.2-1) mg/dl AST (15-37) U/L ALT (12-78) U/L Alkaline Phosphatase (45-117) U/L Troponin I (0-0.045) ng/ml NT-Pro-B Natriuret Pep (0-1800) pg/ml Total Protein (6.4-8.2) gm/dl Albumin (3.4-5.0) gm/dl Globulin (2.5-4.0) gm/dl Albumin/Globulin Ratio (0.9-2) Urine Color Yellow Urine Appearance Cloudy A (Clear) Urine pH 7.0 (4.5-7.5) Ur Specific [place] 1.017 (1.000-1.030) Urine Protein Trace H (Negative) Urine Glucose (UA) Negative (Negative) Urine Ketones Negative (Negative) Urine Blood Negative (Negative) Urine Nitrite Negative (Negative) Urine Bilirubin Negative (Negative) Urine Urobilinogen Negative (Negative) Ur Leukocyte Esterase Negative (Negative) Urine WBC (Auto) 0 (0-5) /hpf Urine RBC (Auto) 0-4 (0-4) /hpf U Hyaline Cast (Auto) 1-5 (0-5) /lpf U Epithel Cells (Auto) 5-10 H (0-5) /lpf Urine Bacteria (Auto) Negative (Negative) Nasal Screen MRSA (PCR) (Negative) Administered Medications Discontinued Medications Albuterol (Duoneb) 12 ml NEB ONE ONE Stop: 12/29/19 08:01 Last Admin: 12/29/19 08:29 Dose: 12 ml Documented by: [id number] Piperacillin Sod/Tazobactam Sod (Zosyn) 4.5 gm in 120 mls @ 240 mls/hr IV NOW ONE Stop: 12/29/19 08:28 Last Infusion: 12/29/19 10:30 Dose: 0 mls/hr Documented by: [id number] Admin: 12/29/19 09:12 Dose: 240 mls/hr Documented by: [id number] Discharge Plan Visit Data Chief Complaint: Shortness of Breath/Dyspnea ED Provider: Jose David Read Discharge Problem: Hypoxemia requiring supplemental oxygen, SOB (shortness of breath), Cough Forms Stand Alone Forms: [facility] Prescriptions Prescriptions: No Action atorvastatin 20 mg Tablet 20 mg PO HS RF: 0 diclofenac sodium 1 % Gel 2 g TOPICAL DIRECTED PRN (Reason: Pain) RF: 0 multivitamin Tablet 1 tab PO QAM RF: 0 Calcium 600 + D(3) 600 mg calcium- 200 unit Capsule 1 cap PO QAM RF: 0 aspirin 81 mg Tablet,Delayed Release (Dr/Ec) 81 mg PO QAM RF: 0 polyethylene glycol 3350 17 gram Powder In Packet 17 g PO 3XWK RF: 0 vitamin E 100 unit Capsule 100 unit PO DAILY RF: 0 spironolactone 25 mg tablet 12.5 mg PO DAILY RF: 0 lidocaine 5 % Adhesive Patch,Medicated 1 patch TOPICAL DAILY RF: 0 mirtazapine 15 mg tablet 7.5 mg PO HS RF: 0 carbidopa-levodopa 25-100 mg tablet 1 tab PO TID RF: 0 docusate sodium 100 mg Tablet 100 mg PO BID RF: 0 Combigan 0.2-0.5 % drops 1 drp OPB BID RF: 0
--- NOTE | 2019-12-29 08:47 | XRay Report ---
XR chest 1V portable HISTORY: 89 years-old Male Dyspnea acute shortness of breath COMPARISON: CT abdomen and pelvis 06/13/2019, chest radiograph 05/28/2019 TECHNIQUE: Portable AP view of the chest FINDINGS: Cardiomediastinal and hilar silhouettes are within normal limits. Mild left hemidiaphragmatic elevati on. Mild blunting of the costophrenic angles appears unchanged. Mild ill-defined left lung base opaci ties. No pneumothorax or overt pulmonary edema. Degenerative changes of the shoulders and spine. IMPRESSION: 1. Minimal left lung base opacities suggest probable atelectasis. Pneumonitis considered less likely. 2. Unchanged mild left hemidiaphragmatic elevation. ACT 112: Negative or not required by law. The above report was generated using voice recognition software. It may contain grammatical, syntax o r spelling errors. Electronically signed by: David Richardson M.D. 12/29/2019 8:45 AM
[2019-12-29 09:08] LABS: Basophils # (auto) 0.02 K/uL (0-0.2); Basophils % (auto) 0.1 %; Eosinophils # (auto) 0.33 K/uL (0-0.5); Eosinophils % (auto) 2.5 %; Hematocrit (blood only) 37.4 % (42-52); Hemoglobin 12.6 g/dL (14.0-18.0); Immature Granulocytes # (auto) 0.03 K/uL (0.00-0.02); Immature Granulocytes % (auto) 0.2 %; Lymphocytes # (auto) 2.45 K/uL (1.2-3.4); Lymphocytes % (auto) 18.2 %; Mean Corpuscular Hemoglobin 31.9 pg (25-34); Mean Corpuscular Hgb Conc 33.7 g/dL (32-36); Mean Corpuscular Volume 94.7 fL (80-100); Mean Platelet Volume 11.5 fL (7.4-10.4); Monocytes # (auto) 1.41 K/uL (0.11-0.59); Monocytes % (auto) 10.5 %; Neutrophils # (auto) 9.19 K/uL (1.4-6.5); Neutrophils % (auto) 68.5 %; Platelet Count 140 K/uL (130-400); RDW Coefficient of Variation 13.7 % (11.5-14.5); RDW Standard Deviation 47.7 fL (36.4-46.3); Red Blood Count 3.95 M/uL (4.7-6.1); White Blood Count 13.43 K/uL (4.8-10.8)
[2019-12-29 09:12] LABS: Base Excess VBG 3.2 mEq/L; HCO3 VBG 30 mmol/L; PCO2 VBG 53 mmHg (38-50); PO2 VBG 25 mmHg; pH VBG 7.36 (7.36-7.41)
[2019-12-29 09:13] LABS: Oxygen Saturation VBG < 60.0 %
[2019-12-29 09:19] LABS: INR 1.1 (0.9-1.1); Partial Thromboplastin Ratio 0.9; Partial Thromboplastin Time 26.2 Seconds (21.0-31.0); Prothrombin Time 11.7 Seconds (9.0-12.0)
[2019-12-29 09:25] LABS: Alanine Aminotransferase 29 U/L (12-78); Albumin Level 2.9 gm/dl (3.4-5.0); Aspartate Aminotransferase 31 U/L (15-37); BUN Creatinine Ratio 20.1 (10-20); Blood Urea Nitrogen 18 mg/dl (7-18); Calcium 8.9 mg/dl (8.5-10.1); Carbon Dioxide 29 mmol/L (21-32); Chloride 96 mmol/L (98-107); Creatinine Clr Calc Pharmacy 58.2 ml/min; Est GFR (African American) 87.9; Est GFR (Non-African American) 75.8; Glucose 99 mg/dl (70-99); Sodium 130 mmol/L (136-145)
[2019-12-29 09:30] LABS: Albumin Globulin Ratio 0.6 (0.9-2); Alkaline Phosphatase 102 U/L (45-117); Bilirubin,Total 0.8 mg/dl (0.2-1); Globulin 4.5 gm/dl (2.5-4.0); NT Pro B Type Natriuretic Pept 1618 pg/ml (0-1800); Total Protein 7.4 gm/dl (6.4-8.2); Troponin I < 0.015 ng/ml (0-0.045)
[2019-12-29 09:39] LABS: Appearance Urine Cloudy (Clear); Bacteria Urine Automated Negative (Negative); Bilirubin Urine Negative (Negative); Blood Urine Negative (Negative); Color Urine Yellow; Glucose Urine UA Negative (Negative); Ketones Urine Negative (Negative); Leukocyte Esterase Urine Negative (Negative); Nitrite Urine Negative (Negative); Protein Urine Trace (Negative); RBC Urine Automated 0-4 /hpf (0-4); Specific Gravity Urine 1.017 (1.000-1.030); Urobilinogen Urine Negative (Negative); WBC Urine Automated 0 /hpf (0-5)
--- NOTE | 2019-12-29 11:21 | Electrocardiogram Report ---
Test Reason : Blood Pressure : / mmHG Vent. Rate : 091 BPM Atrial Rate : 141 BPM P-R Int : 000 ms QRS Dur : 070 ms QT Int : 342 ms P-R-T Axes : 000 -74 054 degrees QTc Int : 420 ms Poor data quality, interpretation may be adversely affected Sinus rhythm with frequent and consecutive PACs Left axis deviation Abnormal ECG When compared with ECG of 28-MAY-2019 08:39, PACs are now present Vent. rate has increased BY 35 BPM Confirmed by Nazario Simmons ([id number]) on 12/29/2019 11:21:12 AM Referred By: REFERRED SELF Confirmed By:Riaz Simmons
--- NOTE | 2019-12-29 11:45 | History & Physical Report ---
Date of Service December 29, 2019 Assessment & Plan (1) Acute respiratory failure with hypoxia: 88 yo M with PMH HTN, bilateral sensorineural hearing loss, right hip arthritis, Depression, dyslipidemia presents from [facility] with concerns of SOB. Acute Hypoxic Resp Failure -admit to med tele -CXR: Minimal left lung base opacities suggest probable atelectasis. Pneumonitis considered less likely. Unchanged mild left hemidiaphragmatic elevation -will obtain CT chest -likely 2/2 aspiration episode. Lower concern of COVID (normal coags, no transaminitis, afebrile, no known cases at [facility])--neg -Apriration precautions. SLC eval pending -Currently on 3L NC. Wean O2 as tolerated. Pt with no home O2 needs normally -robitussin q6h 10mls as needed for cough -duonebs q4h prn for any SOB -cont IV Unasyn and Vanc (MRSA +) -blood cx pending Hyponatremia -Na 130 on admission. Chronic. Pt with previous hospitalization for hyponatremia, ranging in 120s. -Etiology unclear, cause of hyponatremia seems to be multifactorial. Possibly relating to poor PO intake primarily, ?SIADH -Not doing further workup with serum osmolality, urine osmolality and urine sodium given chronic nature -IVF with NSS -Advised to have extra salt in diet, consider salt tabs moving forward -daily BMP HTN/Dyslipidemia -cont atorvastatin 20mg, spironolactone 12.5mg Depression -cont mirtazapine R Hip Arthritis -fall precautions. Pt does not ambulate w/o assistance -cont lidocaine patch, prn diclofenac topical from home -PT/OT eval while here FEN/GI: NSS at 80. NPO. SLC Eval pending DVT prophylaxis: Lovenox SQ DNR/DNI Dispo: Med Surg. Currently resides at [facility], will consult PT to see if he has other needs for discharge. History of Present Illness Chief Complaint: sob Primary Care Provider: [facility] 88 yo M with PMH HTN, bilateral sensorineural hearing loss, right hip arthritis, Depression, dyslipidemia presents from [facility] via EMS with concerns of SOB. Pt notes that about 3-4 days ago had a choking/coughing spell while taking daily medications. Feels as if it 'may have gone down wrong pipe.' Denies any other difficulties swallowing liquids/foods. Denies any prev ious similar such occurrences prior. Associated cough with clear phlegm ever since incident. No exacerbating or alleviating factors. Pt with chronic LE edema. Pt otherwise denies fevers, chills, N/V/D, CP, diaphoresis, BARCENAS, orthopnea, lightheadedness/dizziness, abd pain, urinary sxs, recent travel or sick contacts. Pt with no other acute concerns or complaints. Upon arrival into ED, pt O2 saturations 85%. Afebrile. 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 Pertinent Labs: WBC 13.4, Na 130. LA WNL 0.8. VBG w/o hypercarbia (53). Troponin is not detectable. BNP WNL 1618 CXR: Minimal left lung base opacities suggest probable atelectasis. Pneumonitis considered less likely. Unchanged mild left hemidiaphragmatic elevation. EKG: Sinus rhythm with frequent and consecutive PACs, new compared to 019 ER Course: Albuterol, IV Zosyn Social: Former smoker for 10 yrs, quit >50 yrs ago Allergies Allergy/AdvReac Type Severity Reaction Status Date / Time No Known Allergies Allergy Unverified 12/29/19 08:04 Home Medications Home Medications Medication Instructions Recorded Confirmed Type Calcium 600 + D(3) 1 cap PO QAM 05/02/19 12/29/19 History aspirin 81 mg PO QAM 05/02/19 12/29/19 History atorvastatin 20 mg PO HS 05/02/19 12/29/19 History diclofenac sodium 2 g TOPICAL DIRECTED PRN 05/02/19 12/29/19 History multivitamin 1 tab PO QAM 05/02/19 12/29/19 History brimonidine-timolol [Combigan] 1 drp OPB BID 12/29/19 12/29/19 History carbidopa-levodopa 1 tab PO TID 12/29/19 12/29/19 History docusate sodium 100 mg PO BID 12/29/19 12/29/19 History lidocaine 1 patch TOPICAL DAILY 12/29/19 12/29/19 History mirtazapine 7.5 mg PO HS 12/29/19 12/29/19 History polyethylene glycol 3350 17 g PO 3XWK 12/29/19 12/29/19 History spironolactone 12.5 mg PO DAILY 12/29/19 12/29/19 History vitamin E 100 unit PO DAILY 12/29/19 12/29/19 History 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) Surgical History Status post left cataract extraction (Chronic) Family History Mother Cancer Liver (unknown primary) Father Cancer Spine (unknown primary) Heart disease Brother Cancer intestinal Brother Heart disease Brother Heart disease Other Family history non-contributory Social History Preferred Language: Japanese Communication Ability: Effective Communication Ability Comment: hard of hearing [employer] T[employer] Required: No Beliefs That Will Affect Care: None marital status: / marital status details: but lived w/ GF for past 10 yrs who recently moved to [place] Current Living Situation: [facility] Current Living Situation Comment: [facility] Other Information That Helps Us Care for You: No Feels Safe at Home: Yes Safety Concerns: Feels Safe At This Time Smoking Status: Former smoker Do You Dip or Chew Tobacco: No ; Second Hand Exposure: No ; Tobacco Cessation Education Requested by Patient: No Hx Alcohol Use: Yes Alcohol type: hard liquor Hx Substance Use: No Review of Systems Review of Systems: All systems reviewed & are unremarkable except as noted in HPI & below Physical Exam Constitutional: WD/WN, vitals as above Eyes: PERRL, conjunctivae normal, anicteric sclerae ENMT: external ear and nose normal, oropharynx normal Respiratory: normal respiratory effort; no respiratory distress, no labored breathing and does not use accessory muscles audible phlegm heard w/o stethoscope NC in place Cardiovascular: RRR, no murmur, no edema Gastrointestinal (Abdomen): normal bowel sounds, soft, nontender, no hepatosplenomegaly Skin: no rashes, warm and dry Psychiatric: A+Ox3, euthymic affect Lymphatic: Trace LE Edema, chronic. Compression stockings in place Results & Data Results & Data ([facility]) Vital Signs (Past 12 Hours) Vital Signs Temp Pulse Pulse Resp BP Pulse Ox 12/29/19 10:01 81 17 100 12/29/19 10:00 79 18 108/54 L 99 12/29/19 09:31 77 19 100 12/29/19 09:30 76 19 107/51 L 100 12/29/19 09:00 76 17 130/70 100 12/29/19 08:31 77 22 100 12/29/19 08:30 78 79 22 126/59 L 100 12/29/19 08:13 37.3 C 76 20 129/65 85 L 12/29/19 08:01 91 H 24 99 12/29/19 08:00 82 24 129/65 99 12/29/19 07:46 94 H 23 99 12/29/19 07:42 94 H 29 H 130/67 99 Laboratory Results Laboratory Results - last 24 hr 12/29/19 12/29/19 12/29/19 08:49 08:49 08:49 WBC 13.43 H RBC 3.95 L Hgb 12.6 L Hct 37.4 L MCV 94.7 MCH 31.9 MCHC 33.7 RDW Std Deviation 47.7 H RDW Coeff of Victor Hugo 13.7 Plt Count 140 MPV 11.5 H Immature Gran % (Auto) 0.2 Neut % (Auto) 68.5 Lymph % (Auto) 18.2 [place] % (Auto) 10.5 Eos % (Auto) 2.5 Baso % (Auto) 0.1 Immature Gran # (Auto) 0.03 H Neut # (Auto) 9.19 H Lymph # (Auto) 2.45 [place] # (Auto) 1.41 H Eos # (Auto) 0.33 Baso # (Auto) 0.02 PT 11.7 INR 1.1 APTT 26.2 PTT Ratio 0.9 VBG pH VBG pCO2 VBG pO2 VBG HCO3 VBG O2 Saturation VBG Base Excess Barometric Pressure Sodium 130 L Potassium 4.0 Chloride 96 L Carbon Dioxide 29 Anion Gap 5.0 BUN 18 Creatinine 0.89 Est Cr Clr Drug Dosing 58.2 Est GFR ( Amer) 87.9 Est GFR (Non-Af Amer) 75.8 BUN/Creatinine Ratio 20.1 H Glucose 99 Lactate Calcium 8.9 Total Bilirubin 0.8 AST 31 ALT 29 Alkaline Phosphatase 102 Troponin I < 0.015 NT-Pro-B Natriuret Pep 1618 Total Protein 7.4 Albumin 2.9 L Globulin 4.5 H Albumin/Globulin Ratio 0.6 L Urine Color Urine Appearance Urine pH Ur Specific [place] Urine Protein Urine Glucose (UA) Urine Ketones Urine Blood Urine Nitrite Urine Bilirubin Urine Urobilinogen Ur Leukocyte Esterase Urine WBC (Auto) Urine RBC (Auto) U Hyaline Cast (Auto) U Epithel Cells (Auto) Urine Bacteria (Auto) Nasal Screen MRSA (PCR) 12/29/19 12/29/19 12/29/19 08:49 08:56 Unknown WBC RBC Hgb Hct MCV MCH MCHC RDW Std Deviation RDW Coeff of Victor [place] Plt Count MPV Immature Gran % (Auto) Neut % (Auto) Lymph % (Auto) [place] % (Auto) Eos % (Auto) Baso % (Auto) Immature Gran # (Auto) Neut # (Auto) Lymph # (Auto) [place] # (Auto) Eos # (Auto) Baso # (Auto) PT INR APTT PTT Ratio VBG pH 7.36 VBG pCO2 53 H VBG pO2 25 VBG HCO3 30 VBG O2 Saturation < 60.0 VBG Base Excess 3.2 Barometric Pressure 736.7 Sodium Potassium Chloride Carbon Dioxide Anion Gap BUN Creatinine Est Cr Clr Drug Dosing Est GFR ( Amer) Est GFR (Non-Af Amer) BUN/Creatinine Ratio Glucose Lactate 0.8 Calcium Total Bilirubin AST ALT Alkaline Phosphatase Troponin I NT-Pro-B Natriuret Pep Total Protein Albumin Globulin Albumin/Globulin Ratio Urine Color Urine Appearance Urine pH Ur Specific [place] Urine Protein Urine Glucose (UA) Urine Ketones Urine Blood Urine Nitrite Urine Bilirubin Urine Urobilinogen Ur Leukocyte Esterase Urine WBC (Auto) Urine RBC (Auto) U Hyaline Cast (Auto) U Epithel Cells (Auto) Urine Bacteria (Auto) Nasal Screen MRSA (PCR) Positive A 12/29/19 Unknown WBC RBC Hgb Hct MCV MCH MCHC RDW Std Deviation RDW Coeff of Victor Hugo Plt Count MPV Immature Gran % (Auto) Neut % (Auto) Lymph % (Auto) [place] % (Auto) Eos % (Auto) Baso % (Auto) Immature Gran # (Auto) Neut # (Auto) Lymph # (Auto) [place] # (Auto) Eos # (Auto) Baso # (Auto) PT INR APTT PTT Ratio VBG pH VBG pCO2 VBG pO2 VBG HCO3 VBG O2 Saturation VBG Base Excess Barometric Pressure Sodium Potassium Chloride Carbon Dioxide Anion Gap BUN Creatinine Est Cr Clr Drug Dosing Est GFR ( Amer) Est GFR (Non-Af Amer) BUN/Creatinine Ratio Glucose Lactate Calcium Total Bilirubin AST ALT Alkaline Phosphatase Troponin I NT-Pro-B Natriuret Pep Total Protein Albumin Globulin Albumin/Globulin Ratio Urine Color Yellow Urine Appearance Cloudy A Urine pH 7.0 Ur Specific [place] 1.017 Urine Protein Trace H Urine Glucose (UA) Negative Urine Ketones Negative Urine Blood Negative Urine Nitrite Negative Urine Bilirubin Negative Urine Urobilinogen Negative Ur Leukocyte Esterase Negative Urine WBC (Auto) 0 Urine RBC (Auto) 0-4 U Hyaline Cast (Auto) 1-5 U Epithel Cells (Auto) 5-10 H Urine Bacteria (Auto) Negative Nasal Screen MRSA (PCR) Medications Administered Current Inpatient Medications Miscellaneous Information (Consult) 1 ea N/A UD PRN PRN Reason: Consult Stop: 01/28/20 07:58 Code Status & VTE Plan Code Status DNR/DNI Supervising Physician Co-Signing Physician Notes I personally examined the patient and verified all brown points of history and exam, discussed case, and agree with decision making with Dr Sung. a little bit of back pain but when i start to try to determine where he notes it's really not a big deal. wet mucousy cough although doesn't feel too sob. vitals noted QAGAN TAYAGUNGIN nad heent nc at mmm breathing unlabored lungs with diffuse wet sounding rhonchi no accessory muscles good effort skin no rashes no pallor or icterus no focal neuro deficits pneumonia - aspiration vs CAP - with MRSA nares (+) and unclear etiology have to treat as both for now - vanco to cover MRSA, unasyn for potential aspiration. speech eval. supportive care. otherwise as above lovenox DVT proph Resident Activity Tracking Resident Involvement: Resident Care Provided Care Provided: Adult Hospital Medicine
[2019-12-29] MEDS ORDERED: ACETAMINOPHEN 325 MG TAB PO PRN (14:52)
[2019-12-29] MEDS ORDERED: ONDANSETRON INJ 2 MG/ML 2 ML VIAL IV PRN (14:52)
[2019-12-29] MEDS ORDERED: ALUMINUM/MAGNESIUM SUSP 30 ML UDC PO PRN (14:52)
[2019-12-29] MEDS ORDERED: ALBUT/IPRATROP 3MG/0.5MG NEB 3 ML VIAL NEB PRN (14:52)
[2019-12-29] MEDS ORDERED: GUAIFENESIN/CODEINE 200MG/20MG 10ML UDC PO PRN (14:52)
[2019-12-29] MEDS ORDERED: VANCOMYCIN CONSULT ACTIVE PRN (14:52)
[2019-12-29] MEDS ORDERED: SODIUM CHLORIDE 0.9% 1000ML 500 ML IV ONE (15:00)
[2019-12-29] MEDS ORDERED: VANCOMYCIN HCL 2,250 MG in SODIUM CHLORIDE 0.9% 500 ML IV STA (15:07)
[2019-12-29] MEDS: COMBIGAN: ORDER AWAITING ACTION SCH (15:23)
[2019-12-29] MEDS: CARBIDOPA/LEVODOPA 25/100MG TAB PO SCH ×2 (15:27→19:05)
--- NOTE | 2019-12-29 15:39 | Pharmacy Report ---
Pharmacy Abx Initial Consult - Date of Service December 29, 2019 - Pharmacy Dosing Scope Date of Consult: 12/29/19 Consultation requested by: Dr. Sung Pharmacy is consulted to initiate Vancomycin IV dosing therapy, order appropriate labs and adjust drug dose/frequency. - Subjective The patient is a 89 year old M admitted on 12/29/19 12:08. - Objective Height: 5 ft 4 in Weight: 94 kg Vital Signs (Past 12hrs): Vital Signs Temp Pulse Pulse Resp BP BP Pulse Ox 12/29/19 15:29 36.6 C 73 20 155/76 H 98 12/29/19 15:24 37.1 C 78 20 152/73 H 98 12/29/19 14:56 3 L 12/29/19 14:00 75 15 127/62 98 12/29/19 13:31 79 16 97 12/29/19 13:30 77 14 140/68 96 12/29/19 13:01 78 16 96 12/29/19 13:00 80 18 144/69 H 94 12/29/19 12:31 77 19 97 12/29/19 12:30 78 15 118/58 L 98 12/29/19 12:01 76 14 99 12/29/19 12:00 75 16 113/60 100 12/29/19 11:31 82 16 98 12/29/19 11:30 82 16 120/58 L 98 12/29/19 11:01 81 14 97 12/29/19 11:00 81 15 109/52 L 97 12/29/19 10:31 84 16 98 12/29/19 10:30 83 19 117/53 L 97 12/29/19 10:01 81 17 100 12/29/19 10:00 79 18 108/54 L 99 12/29/19 09:31 77 19 100 12/29/19 09:30 76 19 107/51 L 100 12/29/19 09:00 76 17 130/70 100 12/29/19 08:31 77 22 100 12/29/19 08:30 78 79 22 126/59 L 100 12/29/19 08:13 37.3 C 76 20 129/65 85 L 12/29/19 08:01 91 H 24 99 12/29/19 08:00 82 24 129/65 99 12/29/19 07:46 94 H 23 99 12/29/19 07:42 94 H 29 H 130/67 99 Lab Results (24hrs): Laboratory Tests (24 Hours) 12/29/19 12/29/19 08:49 08:49 WBC 13.43 H Neut # (Auto) 9.19 H Creatinine 0.89 Est Cr Clr Drug Dosing 58.2 Micro Results: 12/29/19 08:49 Aerobic Blood Culture - Pending Blood Anaerobic Blood Culture - Pending 12/29/19 08:45 Aerobic Blood Culture - Pending Blood Anaerobic Blood Culture - Pending - Risk Factors for Resistance * Resident in a skilled nursing or extended-care facility -> [facility] - Assessment & Plan Assessment 89 year old M on empiric IV Vancomycin and Unasyn (not a consult) for acute hypoxic respiratory failure * MRSA nasal swab positive * sCr = 0.89 mg/dL with estimated CrCl ~58 mL/min Plan Vancomycin IV * Loading dose: 2250 mg (~24 mg/kg) * Maintenance dose: 1250 mg IV (~13 mg/kg) every 12 hours as per Vancomycin AUC nomogram * Patient meets criteria for vancomycin AUC dosing nomogram * AUC/CAROL is the preferred PK/PD target for vancomycin * Target AUC/CAROL = 400-600 * AUC guided dosing is effective and associated with decreased risk of nephrotoxicity * Trough level ordered for 12/31/19 @ 0330 Pharmacy will continue to follow and will adjust dose/frequency as necessary. Thank you.
[2019-12-29] MEDS ORDERED: PIPERACILLIN/TAZOBACTAM 4.5 GM in DEXTROSE 5% 100 ML IV SCH (16:00)
[2019-12-29] MEDS: AMPICILLIN/SULBACTAM SOD 3,000 MG in 0.9 % SODIUM CHLORIDE 100 ML IV SCH ×2 (16:06→21:18)
[2019-12-29] MEDS: SODIUM CHLORIDE 0.9% 1000ML 1,000 ML IV SCH ×2 (16:06→21:20)
--- NOTE | 2019-12-29 16:45 | CT Scan Report ---
CT chest wo con CT DOSE: 363.05 mGy.cm CLINICAL HISTORY: 89 years-old Male with aspiration concern. Acute shortness of breath with clinical concern for aspiration pneumonitis TECHNIQUE: Multiaxial CT images of the chest were performed without contrast. A dose lowering techni que was utilized adhering to the principles of ALARA. COMPARISON: CT abdomen and pelvis 06/13/2019, chest radiograph 01/07/2016 FINDINGS: Unremarkable appearance of the thyroid. Nonspecific mildly enlarged 12 mm subcarinal lymph node is no jeana in addition to scattered prominent paratracheal lymph nodes. Heart is mildly enlarged. No pericar dial effusion. Extensive coronary artery calcifications. There is mild fusiform dilation of the ascen ding thoracic aorta, 4.0 x 4.0 cm. The pulmonary artery is also mildly dilated at 3.2 cm. Extensive c alcified plaque with tortuosity of the thoracic aorta. Small left pleural effusion. There is no pneumothorax. There are patchy groundglass and consolidative opacities in a multi segmental distribution throughout the left lower lobe. Mild left greater than r ight bibasilar bronchial wall thickening. Mild asymmetric intralobular septal thickening of the right upper lobe. Trace right pleural effusion. Tracheobronchial secretions are noted. Hypodense 4.8 cm lesion of the superior pole left kidney is suggestive of a probable cyst. Mild destiny nal nodularity of the liver suggestive of cirrhosis. No ascites. Degenerative changes of the shoulder s and spine. Bilateral shoulder rotator cuff calcific tendinosis. 50% anterior endplate wedge deformi ty of the T11 vertebral body without retropulsion is likely chronic. IMPRESSION: 1. Groundglass and consolidative opacities of the left lower lobe are suggestive of aspiration pneumo nitis versus pneumonia. 2. Small left and trace right pleural effusions. 3. Tracheobronchial secretions are noted with bilateral bronchial wall thickening suggestive of bronc hitis or reactive airway disease. 4. Mild mediastinal adenopathy, likely reactive. 5. Cardiomegaly with fusiform dilation of the ascending thoracic aorta, 4.0 x 4.0 cm. 6. Chronic T11 compression deformity. ACT 112: Negative or not required by law. Electronically signed by: David Richardson M.D. 12/29/2019 4:44 PM
[2019-12-29] MEDS ORDERED: HydrALAZINE HCL 20 MG/ML VIAL IV PRN (18:21)
[2019-12-29] MEDS: MIRTAZAPINE TAB 15 MG TAB PO SCH (19:04)
[2019-12-29] MEDS: DOCUSATE SODIUM 100 MG CAP PO SCH (19:04)
[2019-12-29] MEDS: ATORVASTATIN 20 MG TAB PO SCH (19:04)
--- NOTE | 2019-12-29 19:17 | Billing Data ---
Date of Service December 29, 2019 Coding Level of Care Code 00961 Initial Inpt Care Lvl 3
[2019-12-29] MEDS: ENOXAPARIN INJ 40 MG/0.4 ML SYR SQ SCH (21:18)
[2019-12-29] MEDS ORDERED: ACETAMINOPHEN 1,000 MG/100 ML VIAL IV STA (21:40)
[2019-12-30] MEDS: AMPICILLIN/SULBACTAM SOD 3,000 MG in 0.9 % SODIUM CHLORIDE 100 ML IV SCH ×4 (05:15→21:51)
[2019-12-30 06:29] LABS: Basophils # (auto) 0.02 K/uL (0-0.2); Basophils % (auto) 0.2 %; Eosinophils # (auto) 0.37 K/uL (0-0.5); Eosinophils % (auto) 3.9 %; Hemoglobin 11.8 g/dL (14.0-18.0); Immature Granulocytes # (auto) 0.04 K/uL (0.00-0.02); Immature Granulocytes % (auto) 0.4 %; Lymphocytes # (auto) 2.01 K/uL (1.2-3.4); Lymphocytes % (auto) 21.2 %; Mean Corpuscular Hemoglobin 32.7 pg (25-34); Mean Corpuscular Hgb Conc 34.7 g/dL (32-36); Mean Corpuscular Volume 94.2 fL (80-100); Mean Platelet Volume 11.2 fL (7.4-10.4); Monocytes # (auto) 1.01 K/uL (0.11-0.59); Monocytes % (auto) 10.6 %; Neutrophils # (auto) 6.05 K/uL (1.4-6.5); Neutrophils % (auto) 63.7 %; Platelet Count 122 K/uL (130-400); RDW Coefficient of Variation 13.7 % (11.5-14.5); RDW Standard Deviation 47.2 fL (36.4-46.3); Red Blood Count 3.61 M/uL (4.7-6.1)
[2019-12-30 07:12] LABS: BUN Creatinine Ratio 15.4 (10-20); Calcium 8.4 mg/dl (8.5-10.1); Creatinine Clr Calc Pharmacy 58.5 ml/min; Est GFR (African American) 91.8; Est GFR (Non-African American) 79.2; Potassium 4.2 mmol/L (3.5-5.1)
[2019-12-30] MEDS: COMBIGAN: ORDER AWAITING ACTION SCH ×3 (08:27→15:59)
[2019-12-30] MEDS: DOCUSATE SODIUM 100 MG CAP PO SCH ×2 (08:28→20:50)
[2019-12-30] MEDS: CALCIUM 600MG + VIT D 400 IU TAB PO SCH (08:28)
[2019-12-30] MEDS: SPIRONOLACTONE 12.5 MG TAB PO SCH (08:28)
[2019-12-30] MEDS: MULTIVITAMIN TAB PO SCH (08:29)
[2019-12-30] MEDS: CARBIDOPA/LEVODOPA 25/100MG TAB PO SCH ×3 (08:29→20:50)
[2019-12-30] MEDS: TOCOPHERYL, DL-ALPHA 100 UNITS CAP PO SCH (08:29)
[2019-12-30] MEDS: ASPIRIN 81 MG ECTAB PO SCH (08:29)
[2019-12-30] MEDS: LIDOCAINE 5% 1 PATCH TD SCH (08:50)
[2019-12-30] MEDS: VANCOMYCIN HCL 1,000 MG in SODIUM CHLORIDE 0.9% 250 ML IV SCH ×2 (10:00→20:49)
[2019-12-30] MEDS: SODIUM CHLORIDE 0.9% 1000ML 1,000 ML IV SCH (10:03)
[2019-12-30] MEDS ORDERED: FUROSEMIDE 40 MG in SYRINGE 0 ML IV ONE (11:45)
--- NOTE | 2019-12-30 11:53 | Fluoroscopy Report ---
MODIFIED BARIUM SWALLOW CLINICAL HISTORY: assess for aspiration COMPARISON STUDY: None. FLUOROSCOPY TIME: 3.8 minutes. TECHNIQUE: A modified barium swallow was performed in conjunction with Speech Pathology. The patient ingested varying consistencies of barium containing material. Video fluoroscopy was performed. FINDINGS: Note is made of penetration with thin liquids by spoon. There was trace silent tracheal asp iration with swallows of thin liquids. No aspiration was noted with nectar thick liquids, pudding or crackers with paste. Heavy retention was noted within the vallecula and piriform sinuses with pudding and crackers with paste. Mild to moderate esophageal dysmotility was noted. IMPRESSION: 1. Trace silent tracheal aspiration with swallows of thin liquids. No aspiration with remainder of th e consistencies. 2. Heavy retention within the vallecula and piriform sinuses with pudding and crackers with paste. 3. Mild to moderate esophageal dysmotility. 4. Full recommendations by speech pathology to follow. ACT 112: Negative or not required by law. Electronically signed by: Bertin Ca M.D. 12/30/2019 11:52 AM
[2019-12-30] MEDS ORDERED: PERFLUTREN LIPID MICROSPHERE (DEFINITY) IV ONE (13:16)
--- NOTE | 2019-12-30 15:45 | XCELERA ---
[id number]
--- NOTE | 2019-12-30 17:07 | Family Medicine Progress Note ---
Date of Service December 30, 2019 Assessment & Plan (1) Acute respiratory failure with hypoxia: 89-year-old male was admitted on 29 Dec 2003 after arriving via EMS for shortness of breath. Acute hypoxic respiratory failure, nasal MRSA positive: SpO2 85% on RA on ED arrival. Mild chronic CO2 retention on VBG. Admit WBC 13, normal lactate. COVID-19 negative. BNP 1618 (up from Aug 2019s 394). 17May CT chest suggestive of aspiration pneumonitis vs pneumonia with small effusions and possi ble RAD. Considering aspiration PNA. - Blood cultures NGTD. Given single-dose zosyn in ED, admitted on vancomycin (due to nasal MRSA) and unasyn. Considering de-escalate antibiotics around the 48 hour eduar. - On duoneb and robitussin AC (both prn). Contact precautions. - Seen by speech therapy, recommended video swallow study (18May) which showed trace silent aspiration, heavy retention within the vallecula and piriform sinuses, as well as mild to moderate esophageal dysmotility. - Ordered echocardiogram. Treat with Lasix 40 mg IV x 1, re-evaluate in AM. Hyponatremia: PMH same, thought to be multifactorial. Admit Na 130. Is on mirtazapine and spironolactone, both of which may be contributing. - Will continue both for now given his hyponatremia is mild. - If need to discontinue mirtazapine, would need to taper dose over 2 to 4 weeks. Premature atrial contractions: Frequently noted on EKG. On telemetry, monitoring. Thrombocytopenia: Admit platelets 140, down to 122 on recheck. No evidence of acute bleeding. Monitor for now. Incidental CT chest findings (can be followed as outpatient): - Mild mediastinal adenopathy: Read as likely reactive. - Cardiomegaly with fusiform dilation of the ascending thoracic aorta, 4.0 x 4.0 cm. - Chronic T11 compression deformity. - Hypodense 4.8 cm lesion of the superior pole left kidney: Read as suggestive of a probable cyst. Ongoing medical issues: - HTN, HLD: Continue home ASA, atorvastatin. Continue home spironolactone for now. - Chronic lower extremity edema: Presently no leg edema. Does not have comp ression stockings on right now either. Will monitor. - Depression: On previous admit, held Zoloft due to hyponatremia. - Chronic anemia: Admit Hb 12.6, MCV 94. Hb comparisons between 11.4-13. No overt evidence of acute bleeding. - Weight loss: Prior admit noted lost 40 lbs in five months (summer-fall 2018). Admit albumin 2.9. 18May weight 76.3 kg (up from baseline around 67 kg). - Right hip osteoarthritis, falls: Seen by ortho as inpatient May 2019. Advised skilled rehab facility and ortho outpt f/u. On scheduled lidocaine patch and prn Tylenol. - Parkinsons disease: Per May 2019 nursing notes. Son is aware hes on sinemet but not why. Continuing here. - History of constipation: Continue home MiraLAX 17 grams three times a week and docusate. - Glaucoma: Continue home combigan. - Bilateral sensorineural hearing loss. ? cerumen in ears Code Status: DNR/DNI. DVT prophy: Lovenox 40 daily. Diet: NPO with sips and chips. Stopped IVF. Speech therapy as above. PT/OT: PT recommended discharge back to [facility] once medically cleared. In interim recommended 3-5 times a week inpatient PT. OT recommends continued OT on hospital discharge. Disbo: Admitted to [facility] with telemetry. Lives at [facility]. Is mostly wheelchair-bound. PONader is son (Donta [phone]), updated him on 18May on phone. Case management onboard. (2) MRSA nasal colonization: (3) Hyponatremia: (4) Premature atrial contractions: (5) Thrombocytopenia: (6) Dilatation of thoracic aorta: (7) Compression fx, thoracic spine: (8) Left kidney mass: (9) Hypertension: (10) Hyperlipidemia: (11) Leg edema: (12) Depression: (13) Chronic anemia: (14) Weight loss: (15) Hip pain, right: (16) Parkinson disease: (17) Glaucoma: (18) Sensorineural hearing loss (SNHL) of both ears: Admission and Anticipated Discharge Date Admission Date: December 29, 2019 Supervising Physician Co-Signing Physician Notes I personally examined the patient and verified all brown points of history and exam, discussed case, and agree with decision making with Dr. Smith with the following additions/exceptions: Patient reports not feeling well. He always has phlegm and fluid he feels in the back of his throat that he is coughing up or choking on. Still feeling short of breath and remains on oxygen. Has right hip pain that is chronic. Vitals reviewed Gen: AAOx3, NAD HEENT: Anicteric sclerae, EOMI CV: RRR no mgr nl S1S2 Pulm: Diffuse rhonchi, wheezes, and with bibasilar crackles Abd: +BS soft NT ND no masses or hernias Ext: No edema, 2+ DP pulses Skin: No rashes, warm/dry Neuro: Full strength throughout 89-year-old male who presents with progressively worsening shortness of breath, found to have likely aspiration pneumonitis in the left lower lobe and with hypoxia. Seems to be volume overloaded as well here today -DC IV fluids and give IV Lasix x1 -Follow BMP and volume status Strict I's and O's Continue antibiotics and de-escalate if cultures remain negative by tomorrow Plan otherwise outlined as above Appreciate speech therapy consultation and video swallow Subjective Spoke with patient earlier this morning. He was awake, alert, and overall said he felt "lousy" for about the same as past couple days. Says it is hard for him to clear the phlegm in his throat. Otherwise he says he feels okay and denies any chest pain or difficulty breathing. He says he does have some arthritis pain. No other acute patient concerns raised. Review of Systems Review of Systems: Per HPI as above. Physical Exam Physical Exam: General Appearance: Awake, alert & oriented, comfortable in general, NAD. He has audible gurgling on breathing. CV: +S1S2 RRR, no murmur. Mild JVD. Pulm: Diffuse rales throughout all lung martinez. On 3 L nasal cannula oxygen. Has a congested cough. Abdomen: +BS, soft, non-tender, non-distended. Extremities: No pedal edema or calf tenderness. Moving all extremities naturally and easily. Is not wearing compression stockings. Neuro: No gross neuro deficits. Results & Data ([facility]) Vital Signs (Past 12 Hours) Vital Signs Temp Pulse Pulse Resp BP Pulse Ox Pulse Ox 12/30/19 16:22 36.6 C 73 20 153/80 H 96 12/30/19 13:19 96 12/30/19 11:43 37 C 73 18 132/72 96 05/18/20 08:14 37.0 C 73 20 165/81 H 95 12/30/19 06:50 65 Pulse Ox Pulse Ox 12/30/19 16:22 12/30/19 13:19 99 92 12/30/19 11:43 12/30/19 08:14 12/30/19 06:50 Laboratory Results 12/30/19 12/30/19 Range/Units 05:54 05:54 WBC 9.50 (4.8-10.8) K/uL RBC 3.61 L (4.7-6.1) M/uL Hgb 11.8 L (14.0-18.0) g/dL Hct 34.0 L (42-52) % MCV 94.2 (80-100) fL MCH 32.7 (25-34) pg MCHC 34.7 (32-36) g/dL RDW Std Deviation 47.2 H (36.4-46.3) fL RDW Coeff of Victor Hugo 13.7 (11.5-14.5) % Plt Count 122 L (130-400) K/uL MPV 11.2 H (7.4-10.4) fL Immature Gran % (Auto) 0.4 % Neut % (Auto) 63.7 % Lymph % (Auto) 21.2 % [place] % (Auto) 10.6 % Eos % (Auto) 3.9 % Baso % (Auto) 0.2 % Immature Gran # (Auto) 0.04 H (0.00-0.02) K/uL Neut # (Auto) 6.05 (1.4-6.5) K/uL Lymph # (Auto) 2.01 (1.2-3.4) K/uL [place] # (Auto) 1.01 H (0.11-0.59) K/uL Eos # (Auto) 0.37 (0-0.5) K/uL Baso # (Auto) 0.02 (0-0.2) K/uL Sodium 133 L (136-145) mmol/L Potassium 4.2 (3.5-5.1) mmol/L Chloride 100 (98-107) mmol/L Carbon Dioxide 25 (21-32) mmol/L Anion Gap 8.0 (3-11) BUN 12 (7-18) mg/dl Creatinine 0.80 (0.6-1.4) mg/dl Est Cr Clr Drug Dosing 58.5 ml/min Est GFR ( Amer) 91.8 Est GFR (Non-Af Amer) 79.2 BUN/Creatinine Ratio 15.4 (10-20) Glucose 75 (70-99) mg/dl Calcium 8.4 L (8.5-10.1) mg/dl Specimen Hemolysis Medications Administered Current Inpatient Medications Acetaminophen (Tylenol) 650 mg PO Q4H PRN PRN Reason: Pain or Fever Stop: 01/28/20 14:51 Al Hydrox/Mg Hydrox/Simethicone (Maalox) 15 ml PO Q4H PRN PRN Reason: Dyspepsia Stop: 01/28/20 14:51 Albuterol (Duoneb) 3 ml NEB Q4R PRN PRN Reason: sob Stop: 01/28/20 14:51 Aspirin (Ecotrin Ectab) [facility] Stop: 01/29/20 08:59 Last Admin: 12/30/19 08:29 Dose: Not Given Documented by: Atorvastatin Calcium (Lipitor) 20 mg PO HS [facility] Stop: 01/28/20 20:59 Last Admin: 12/29/19 19:04 Dose: Not Given Documented by: Carbidopa/Levodopa (Sinemet 25/100 Mg) 1 tab PO TID [facility] Stop: 01/28/20 14:51 Last Admin: 12/30/19 13:33 Dose: 1 tab Documented by: Docusate Sodium (Colace) 100 mg PO BID [facility] Stop: 01/28/20 20:59 Last Admin: 12/30/19 08:28 Dose: Not Given Documented by: Enoxaparin Sodium (Lovenox) 40 mg SQ HS [facility] Stop: 01/28/20 20:59 Last Admin: 12/29/19 21:18 Dose: 40 mg Documented by: Guaifenesin/Codeine Phosphate (Robitussin-Ac Sugar Free) 10 ml PO Q6H PRN PRN Reason: Cough Stop: 01/28/20 14:51 Hydralazine HCl (Hydralazine Hcl) 10 mg IV Q4H PRN PRN Reason: systolic >190 Stop: 01/28/20 18:20 Ampicillin Sodium/Sulbactam Sodium 3,000 mg/ Sodium Chloride 108 mls @ 200 mls/hr IV Q6H [facility]; Protocol Stop: 01/05/20 15:59 Last Infusion: 12/30/19 16:49 Dose: Infused Documented by: Vancomycin HCl 1,000 mg/ (Sodium Chloride) 270 mls @ 125 mls/hr IV Q12@0900,2100 [facility] Stop: 01/06/20 09:14 Last Infusion: 12/30/19 12:10 Dose: Infused Documented by: Lidocaine (Lidoderm 5%) 1 patch TD DAILY [facility] Stop: 01/29/20 08:59 Last Admin: 12/30/19 08:50 Dose: 1 patch Documented by: Mirtazapine (Remeron) 7.5 mg PO HS [facility] Stop: 01/28/20 20:59 Last Admin: 12/29/19 19:04 Dose: Not Given Documented by: Miscellaneous (Order Awaiting Action) 1 ea N/A QS [facility] Stop: 01/28/20 15:59 Last Admin: 12/30/19 15:59 Dose: Not Given Documented by: Miscellaneous (Remove Lidoderm Patch) 1 ea N/A DAILY@2100 [facility] Stop: 01/28/20 20:59 Last Admin: 12/29/19 21:18 Dose: 1 ea Documented by: Miscellaneous Information (Consult) 1 ea N/A UD PRN PRN Reason: Consult Stop: 01/28/20 14:51 Multivitamins (Multivitamin Tab) 1 tab PO QAM [facility] Stop: 01/29/20 08:59 Last Admin: 12/30/19 08:29 Dose: Not Given Documented by: Multivitamins/Minerals (Caltrate Plus) 1 tab PO QAM [facility] Stop: 01/29/20 08:59 Last Admin: 12/30/19 08:28 Dose: Not Given Documented by: Ondansetron HCl (Zofran) 4 mg IV Q6H PRN PRN Reason: Nausea Stop: 01/28/20 14:51 Spironolactone (Aldactone) 12.5 mg PO DAILY [facility] Stop: 01/29/20 08:59 Last Admin: 12/30/19 08:28 Dose: Not Given Documented by: Vitamin E (Vitamin E) 100 units PO DAILY [facility] Stop: 01/29/20 08:59 Last Admin: 05/18/20 08:29 Dose: Not Given Documented by: Resident Activity Tracking Resident Involvement: Resident Care Provided Care Provided: Adult Hospital Medicine (1) Depression Depression Type: unspecified Qualified Code(s): F32.9 - Major depressive disorder, single episode, unspecified (2) Hypertension Hypertension type: unspecified Qualified Code(s): I10 - Essential (primary) hypertension
--- NOTE | 2019-12-30 20:01 | Billing Data ---
Date of Service December 30, 2019 Coding Level of Care Code 88639 Subseq Hosp Care Lvl 3
[2019-12-30] MEDS: ENOXAPARIN INJ 40 MG/0.4 ML SYR SQ SCH (20:50)
[2019-12-30] MEDS: MIRTAZAPINE TAB 15 MG TAB PO SCH (20:51)
[2019-12-30] MEDS: ATORVASTATIN 20 MG TAB PO SCH (20:51)
[2019-12-31] MEDS ORDERED: VANCOMYCIN TROUGH ONE ×2 (03:30→08:30)
[2019-12-31] MEDS: AMPICILLIN/SULBACTAM SOD 3,000 MG in 0.9 % SODIUM CHLORIDE 100 ML IV SCH ×2 (04:55→09:33)
[2019-12-31] MEDS: COMBIGAN: ORDER AWAITING ACTION SCH ×2 (07:15→07:17)
[2019-12-31] MEDS: SPIRONOLACTONE 12.5 MG TAB PO SCH (08:13)
[2019-12-31] MEDS: CALCIUM 600MG + VIT D 400 IU TAB PO SCH (08:13)
[2019-12-31] MEDS: DOCUSATE SODIUM 100 MG CAP PO SCH ×2 (08:14→08:26)
[2019-12-31] MEDS: ASPIRIN 81 MG ECTAB PO SCH (08:14)
[2019-12-31] MEDS: MULTIVITAMIN TAB PO SCH (08:14)
[2019-12-31] MEDS: LIDOCAINE 5% 1 PATCH TD SCH (08:14)
[2019-12-31] MEDS: TOCOPHERYL, DL-ALPHA 100 UNITS CAP PO SCH (08:15)
[2019-12-31] MEDS: CARBIDOPA/LEVODOPA 25/100MG TAB PO SCH (08:15)
[2019-12-31 08:34] LABS: Hematocrit (blood only) 35.6 % (42-52); Hemoglobin 12.4 g/dL (14.0-18.0); Mean Corpuscular Hemoglobin 32.6 pg (25-34); Mean Corpuscular Hgb Conc 34.8 g/dL (32-36); Mean Corpuscular Volume 93.7 fL (80-100); Mean Platelet Volume 10.9 fL (7.4-10.4); Platelet Count 146 K/uL (130-400); RDW Coefficient of Variation 13.5 % (11.5-14.5); RDW Standard Deviation 46.3 fL (36.4-46.3); White Blood Count 8.15 K/uL (4.8-10.8)
[2019-12-31 08:51] LABS: BUN Creatinine Ratio 15.5 (10-20); Calcium 9.1 mg/dl (8.5-10.1); Est GFR (African American) 89.5; Est GFR (Non-African American) 77.3; Potassium 3.5 mmol/L (3.5-5.1)
--- NOTE | 2019-12-31 09:25 | Pharmacy Report ---
Pharmacy Abx Dose Short Note - Date of Service December 31, 2019 - Assessment & Plan Assessment 89 year old M receiving vancomycin and ampicillin/sulbactam for treatment of pneumonia Day # 3 of antimicrobial therapy. MRSA nasal swab (12/28): positive Blood cultures x 2 (12/28): ngtd at 24 hours Renal function stable Plan Vancomycin * Patient meets criteria for vancomycin AUC dosing nomogram * AUC/CAROL is the preferred PK/PD target for vancomycin * Target AUC/CAROL = 400-600 * Trough level of 16.6 mcg/mL is predicted to achieve target AUC/CAROL * AUC guided dosing is effective and associated with decreased risk of nephrotoxicity * Level was obtained prior to steady-state in order to ensure safety due to administration of excessive loading dose of 30 mg/kg * Will obtain another level in 48 hours Unasyn * 3 g IV q6h - dosing remains appropriate Pharmacy will continue to follow and will adjust dose/frequency as necessary. Thank you.
[2019-12-31] MEDS: VANCOMYCIN HCL 1,000 MG in SODIUM CHLORIDE 0.9% 250 ML IV SCH (09:33)
--- NOTE | 2019-12-31 10:01 | Discharge Summary ---
Date of Service December 31, 2019 Admission HPI Per Admitting Provider 88 yo M with PMH HTN, bilateral sensorineural hearing loss, right hip arthritis, Depression, dyslipidemia presents from [facility] via EMS with concerns of SOB. Pt notes that about 3-4 days ago had a choking/coughing spell while taking daily medications. Feels as if it 'may have gone down wrong pipe.' Denies any other difficulties swallowing liquids/foods. Denies any previous similar such occurrences prior. Associated cough with clear phlegm ever since incident. No exacerbating or alleviating factors. Pt with chronic LE edema. Pt otherwise denies fevers, chills, N/V/D, CP, diaphoresis, BARCENAS, orthopnea, l ightheadedness/dizziness, abd pain, urinary sxs, recent travel or sick contacts. Pt with no other acute concerns or complaints. Upon arrival into ED, pt O2 saturations 85%. Afebrile. Required 4L NC in ambulance [employer]. Pertinent Labs: WBC 13.4, Na 130. LA WNL 0.8. VBG w/o hypercarbia (53). Troponin is not detectable. BNP WNL 1618 CXR: Minimal left lung base opacities suggest probable atelectasis. Pneumonitis considered less likely. Unchanged mild left hemidiaphragmatic elevation. EKG: Sinus rhythm with frequent and consecutive PACs, new compared to 28-MAY-2019 ER Course: Albuterol, IV Zosyn Social: Former smoker for 10 yrs, quit >50 yrs ago Admission Exam Per Admitting Provider Constitutional: WD/WN, vitals as above Eyes: PERRL, conjunctivae normal, anicteric sclerae ENMT: external ear and nose normal, oropharynx normal Respiratory: normal respiratory effort; no respiratory distress, no labored breathing and does not use accessory muscles audible phlegm heard w/o stethoscope NC in place Cardiovascular: RRR, no murmur, no edema Gastrointestinal (Abdomen): normal bowel sounds, soft, nontender, no hepatosplenomegaly Skin: no rashes, warm and dry Psychiatric: A+Ox3, euthymic affect Lymphatic: Trace LE Edema, chronic. Compression stockings in place Principal Diagnosis Acute hypoxic respiratory failure,Aspiration pneumonitis, nasal MRSA positive, hyponatremia, esophageal dysmotility. Discharge Exam General Appearance: Awake, alert & oriented, comfortable in general, NAD. He has audible (but improved) gurgling on breathing. CV: +S1S2 RRR, no murmur. Pulm: Prior diffuse rales throughout all lung martinez have resolved. Improved cough. Abdomen: +BS, soft, non-tender, non-distended. Extremities: No pedal edema or calf tenderness. Moving all extremities naturally and easily. Is not wearing compression stockings. Neuro: No gross neuro deficits. Discharge Data Allergies Allergy/AdvReac Type Severity Reaction Status Date / Time No Known Allergies Allergy Unverified 12/29/19 08:04 Consultations 12/29/19 11:06 ED Decision to Admit Stat 12/29/19 14:52 Consult Case Management - Discharge Planning Routine Ordered Studies Echocardiogram on December 30, 2019 There is mild concentric LVH. Left ventricular systolic function is normal. There is mild mitral annular calcification. Moderate aortic root dilatation. Chest CT on December 29, 2019 IMPRESSION: 1. Groundglass and consolidative opacities of the left lower lobe are suggestive of aspiration pneumonitis versus pneumonia. 2. Small left and trace right pleural effusions. 3. Tracheobronchial secretions are noted with bilateral bronchial wall thickening suggestive of bronchitis or reactive airway disease. 4. Mild mediastinal adenopathy, likely reactive. 5. Cardiomegaly with fusiform dilation of the ascending thoracic aorta, 4.0 x 4.0 cm. 6. Chronic T11 compression deformity. Videofluoroscopic swallow exam on December 30, 2019 IMPRESSION: 1. Trace silent tracheal aspiration with swallows of thin liquids. No aspiration with remainder of the consistencies. 2. Heavy retention within the vallecula and piriform sinuses with pudding and crackers with paste. 3. Mild to moderate esophageal dysmotility. 4. Full recommendations by speech pathology to follow. Hospital Course (1) Acute respiratory failure with hypoxia: 89-year-old male was admitted on 29 Dec 2019 after arriving via EMS for shortness of breath. Acute hypoxic respiratory failure, Aspiration pneumonitis, nasal MRSA positive: Hypoxia improving, now on 2-3 L NC. 17May COVID-19 negative. BNP 1618 (up from Aug 2019s 394). 18May TTE noted EF 60-65%, mild LVH and moderate aortic root dilatation. 17May CT chest suggestive of aspiration pneumonitis vs pneumonia with small effusions and possible RAD. Suspect he mostly has some aspiration pneumonitis, less likely pneumonia. SpO2 95% on RA. - Blood cultures NGTD. Given single-dose zosyn in ED, admitted on vancomycin (d ue to nasal MRSA) and unasyn. Received 36 hours dosing. - Has remained afebrile without leukocytosis as inpatient. Will discharge on augmentin x 5 days. - On duoneb and robitussin AC (both prn). - Seen by speech therapy, recommended video swallow study (18May) which showed trace silent aspiration, heavy retention within the vallecula and piriform sinuses, as well as mild to moderate esophageal dysmotility. - Treated with Lasix 40 mg IV x 1 with much improved pulmonary congestion. No plan for d/c on Lasix, though can monitor as outpatient. Hyponatremia: PMH same, thought to be multifactorial. Admit Na 130, recheck 132. Is on mirtazapine and spironolactone, both of which may be contributing. - Will continue both for now given his hyponatremia is mild. - If need to discontinue mirtazapine, would need to taper dose over 2 to 4 weeks. Premature atrial contractions: Frequently noted on EKG. Also first degree AV block. Seems asymptomatic. Thrombocytopenia: Admit platelets 140, down to 122, then back to 146. No evidence of acute bleeding. Incidental CT chest findings (see full report - can be followed as outpatient): (1) Mild mediastinal adenopathy: Read as likely reactive. (2) Cardiomegaly with fusiform dilation of the ascending thoracic aorta, 4.0 x 4.0 cm. (3) Chronic T11 compression deformity. (4) Hypodense 4.8 cm lesion of the superior pole left kidney: Read as suggestive of a probable cyst. Ongoing medical issues: - HTN, HLD: Continue home ASA, atorvastatin. Continue home spironolactone. - Chronic LE edema: Presently no leg edema and not wearing compression stockings. Monitoring. - Anxiety: On previous admit, held Zoloft due to hyponatremia. - Chronic anemia: Admit Hb 12.6, MCV 94. Hb comparisons between 11.4-13. No overt evidence of acute bleeding. - Weight loss: Prior admit noted lost 40 lbs in five months (summer-fall 2018). Admit albumin 2.9. - Right hip osteoarthritis, falls: Seen by ortho as inpatient May 2019. Advised skilled rehab facility and ortho outpt f/u. On scheduled lidocaine patch and prn Tylenol. - Parkinsons disease: Per May 2019 nursing notes. Son is aware hes on sinemet but not why. Continuing here. - History of constipation: Continue home MiraLAX 17 grams three times a week and docusate. - Glaucoma: Continue home combigan. - Bilateral sensorineural hearing loss. ? cerumen in ears. Follow up with PCP Code Status: DNR/DNI. Speech therapy discharge instructions 1. Minced and moist diet 2. Aspiration and reflux precautions as outlined. No straws. Must complete a chin tuck with all liquids (take a small sip, hold liquid in the mouth, tucked the chin to the chest, swallow while the chin is down). Home medications need to be placed in a carrier (such as applesauce or pudding) and crushed as able. 3. Strict mouth care. Clean all surfaces of the mouth and tongue prior to and after meals and before bed to reduce oral bacteria that can be aspirated and saliva. 4. If the patient has any worsening chest x-ray, is unable to complete the chin tuck effectively, has repeat pneumonia, or begins to cough with thin liquids, liquids will need to be modified to nectar thick. 5. The patient would benefit from continued speech services upon discharge for carryover of diet and safe swallowing strategies. He would also benefit from a pharyngeal strengthening exercises. Aspiration precautions: Alternate solids and liquids, crush medications, fully alert and upright, give meds in a carrier, oral hygiene, single bites/small sips/slow rate, no straws. Reflux precautions: Alternate solids and liquids, head of bed 30 degrees at all times, upright with meals for over 30 minutes. (2) MRSA nasal colonization: (3) Hyponatremia: (4) Premature atrial contractions: (5) Thrombocytopenia: (6) Dilatation of thoracic aorta: (7) Compression fx, thoracic spine: (8) Left kidney mass: (9) Hypertension: (10) Hyperlipidemia: (11) Leg edema: (12) Depression: (13) Chronic anemia: (14) Weight loss: (15) Hip pain, right: (16) Parkinson disease: (17) Glaucoma: (18) Sensorineural hearing loss (SNHL) of both ears: Total Time Total Time Spent Total Time Spent (In Minutes): > 30 min Discharge Plan Discharge Items Patient Disposition: Personal Retirement Reason For Visit: HYPOXIA Discharge Diagnosis: Hypoxia (low blood oxygen), low-sodium, aspiration pneumonia, esophageal dysmotility Activity: Per Instructions section Non-emergency contact: Primary Care Provider Call non-emergency contact if: you have any medication questions Follow-up/Referrals: Lillie peaceNorman [Primary Care Provider] - Diet: Heart Healthy Diet Comment: See speech therapy recommendations below. Addtl Attending Provider Instructions: You were admitted to the hospital back on December 29, 2019 due to difficulty breathing. While in the hospital, we addressed the following issues: Hypoxia (low blood oxygen levels): Initially your blood oxygen levels were quite low. However, after receiving some supplemental oxygen and removing some fluid around the lungs, your breathing significantly improved. You received some IV antibiotics. As a precaution, we will send you home on an antibiotic called Augmentin. Difficulty swallowing: You were seen by her speech therapist and underwent a video swallow study. This showed that she have both silent aspiration (where some of the fluid that you swallow ends up in your lungs) as well as some of the food you eat gets stuck in your throat. Because of this, speech therapy made a series of specific recommendations to try to decrease this from happening. Please follow their instructions as best as possible. The remainder of your chronic medical issues remained relatively unchanged during your inpatient stay. Please continue to follow-up with your primary care provider for close posthospital continuity of care. Of course, if you were to have any difficulty breathing or inability to swallow you should be seen in an emergency department immediately. Speech therapy discharge instructions 1. Minced and moist diet 2. Aspiration and reflux precautions as outlined. No straws. Must complete a chin tuck with all liquids (take a small sip, hold liquid in the mouth, tucked the chin to the chest, swallow while the chin is down). Home medications need to be placed in a carrier (such as applesauce or pudding) and crushed as able. 3. Strict mouth care. Clean all surfaces of the mouth and tongue prior to and after meals and before bed to reduce oral bacteria that can be aspirated and saliva. 4. If the patient has any worsening chest x-ray, is unable to complete the chin tuck effectively, has repeat pneumonia, or begins to cough with thin liquids, liquids will need to be modified to nectar thick. 5. The patient would benefit from continued speech services upon discharge for carryover of diet and safe swallowing strategies. He would also benefit from a pharyngeal strengthening exercises. Aspiration precautions: Alternate solids and liquids, crush medications, fully alert and upright, give meds in a carrier, oral hygiene, single bites/small sips/slow rate, no straws. Reflux precautions: Alternate solids and liquids, head of bed 30 degrees at all times, upright with meals for over 30 minutes. Pending Studies at Discharge: No Stand-Alone Forms: My [facility] [place] [email or web address], Smoking Cessation Skilled Items Patient informed of condition?: Yes DNR: Yes Discharge Level of Care: Skilled Communicable Disease: No Discharge Prognosis: Stable Lines: None Urinary Catheter: No Medications and DC Order Prescriptions: New amoxicillin-pot clavulanate [Augmentin] 875-125 mg tablet 1 tab PO BID 5 Days Qty: 10 RF: 0 Continued atorvastatin 20 mg Tablet 20 mg PO HS RF: 0 diclofenac sodium 1 % Gel 2 g TOPICAL DIRECTED PRN (Reason: Pain) RF: 0 multivitamin Tablet 1 tab PO QAM RF: 0 Calcium 600 + D(3) 600 mg calcium- 200 unit Capsule 1 cap PO QAM RF: 0 aspirin 81 mg Tablet,Delayed Release (Dr/Ec) 81 mg PO QAM RF: 0 polyethylene glycol 3350 17 gram Powder In Packet 17 g PO 3XWK RF: 0 vitamin E 100 unit Capsule 100 unit PO DAILY RF: 0 spironolactone 25 mg tablet 12.5 mg PO DAILY RF: 0 lidocaine 5 % Adhesive Patch,Medicated 1 patch TOPICAL DAILY RF: 0 mirtazapine 15 mg tablet 7.5 mg PO HS RF: 0 carbidopa-levodopa 25-100 mg tablet 1 tab PO TID RF: 0 docusate sodium 100 mg Tablet 100 mg PO BID RF: 0 Combigan 0.2-0.5 % drops 1 drp OPB BID RF: 0 Discharge Orders: Discharge Order (Routine); Ordered 12/31/19 Ordered By: David Smith Admission Data Admit Date/Time: 12/29/19 12:08 Attending Provider: Kylee Webb Admit Provider: Abhinav Paredes Primary Care Provider: Lillie peaceNorman Other Providers: Abhinav Paredes Supervising Physician Co-Signing Physician Notes I personally examined the patient and verified all brown points of history and exam, discussed case, and agree with decision making with Dr. Smith with the following additions/exceptions: Patient reports feeling much better, is weaned off O2 and no further cough or SOB. Vitals reviewed Gen: AAOx3, NAD HEENT: Anicteric sclerae, EOMI CV: RRR no mgr nl S1S2 Pulm: CTAB no wcr Abd: +BS soft NT ND no masses or hernias Ext: No edema, 2+ DP pulses Skin: No rashes, warm/dry 89-year-old male who presents with progressively worsening shortness of breath, found to have likely aspiration pneumonitis in the left lower lobe and with hypoxia. Was also with slight volume overload as well which was relieved w/ IV Lasix x1 Dc on Augmentin x total 5 day course, much improved -Speech therapy recs appreciated and to be followed [facility] Speech Therapy Plan otherwise outlined as above Does not need home O2 Resident Activity Tracking Resident Involvement: Resident Care Provided Care Provided: Adult Hospital Medicine
[2019-12-31 11:13] VITALS: TEMP 98.1; O2SAT 92
--- NOTE | 2019-12-31 12:09 | Billing Data ---
Date of Service December 31, 2019 Coding Level of Care Code D/C Day Management >30 mins
[2019-12-31 13:21] VITALS: BP 160/72; PULSE 73
[2020-01-02] MEDS ORDERED: VANCOMYCIN TROUGH ONE (08:30)
== END 2019-12-31 13:55 | disposition home or self-care (01) | DRG 177 ==
LOC: ED 07:33 → SUATTDRO 12:08 → 2N 12:08